=== PATIENT | female | born 1995 | race Caucasian/White ===

== ENCOUNTER 2017-03-09 14:05 | Inpatient (IN) | payer OTHER ==
[2017-03-09] MEDS ORDERED: IBUPROFEN 600 MG TAB PO STA (16:12)
[2017-03-09] MEDS ORDERED: SODIUM CHLORIDE 0.9% 2,000 ML IV STA (16:12)
[2017-03-09] MEDS ORDERED: ONDANSETRON 4 MG/2 ML VIAL IVP STA (16:13)
--- NOTE | 2017-03-09 16:38 | ED ---
General Adult HPI - General Chief complaint: Back Pain/Injury Stated complaint: back pain Time Seen by Provider: 03/09/17 16:05 Source: patient, RN notes reviewed Mode of arrival: ambulatory Limitations: no limitations - History of Present Illness Initial comments: 21-year-old female presents to the emergency Department chief complaint of right flank pain. Patient states she is not a drug user. Patient states that she developed this right flank pain over the last few days she noticed a fever. Patient states she has had nausea. Patient denies any burning or stinging with urination. Patient denies any abdominal. Patient states that she was concerned due to the fever so she thought that she should be evaluated. Patient states that she is not currently having any other symptoms at this time. Patient denies any risk for . Patient denies any recent shortness of breath, chest pain, abdominal pain, numbness or tingling, dysuria or hematuria, constipation or diarrhea, headaches or visual changes, or any other current symptoms. - Related Data Home Medications Medication Instructions Recorded Confirmed Acetaminophen [Tylenol] 1,000 mg PO Q4-6H PRN 03/09/17 03/09/17 Allergies Allergy/AdvReac Type Severity Reaction Status Date / Time No Known Allergies Allergy Verified 03/09/17 16:50 Review of Systems ROS Statement: Those systems with pertinent positive or pertinent negative responses have been documented in the HPI. ROS Other: All systems not noted in ROS Statement are negative. Past Medical History Past Medical History: No Reported History History of Any Multi-Drug Resistant Organisms: MRSA Date of last positivie culture/infection: 2015 MDRO Source:: various wounds Past Surgical History: No Surgical Hx Reported Past Psychological History: No Psychological Hx Reported Smoking Status: Current every day smoker Past Alcohol Use History: None Reported Past Drug Use History: IV Drug Use General Exam - General Exam Comments Initial Comments: General: The patient is awake and alert, in no distress, and does not appear acutely ill. Eye: Pupils are equal, round and reactive to light, extra-ocular movements are intact; there is normal conjunctiva bilaterally. No signs of icterus. Ears, nose, mouth and throat: There are moist mucous membranes and no oral lesions. Neck: The neck is supple, there is no tenderness. Cardiovascular: There is a regular rate and rhythm. No murmur, rub or gallop is appreciated. Respiratory: Lungs are clear to auscultation, respirations are non-labored, breath sounds are equal. No wheezes, stridor, rales, or rhonchi. Gastrointestinal: Soft, non-distended, non-tender abdomen without masses or organomegaly noted. There is no rebound or guarding present. Right sided CVA tenderness. Bowel sounds are unremarkable. Back: There is no tenderness to palpation in the midline. There is no obvious deformity. No rashes noted. Musculoskeletal: Normal ROM, no tenderness, There is no pedal edema. There is no calf tenderness or swelling. Sensation intact. Pulses equal bilaterally 2+. Neurological: CN II-XII intact, There are no obvious motor or sensory deficits. Coordination appears grossly intact. Speech is normal. Skin: Skin is warm and dry and no rashes or lesions are noted. Psychiatric: Cooperative, appropriate mood & affect, normal judgment. Limitations: no limitations Course Vital Signs 03/09/17 03/09/17 14:26 15:47 Temperature 101.2 F H 99.5 F Pulse Rate 108 H 105 H Respiratory 20 17 Rate Blood Pressure 113/68 126/58 O2 Sat by Pulse 99 98 Oximetry Medical Decision Making - Medical Decision Making 21-year-old female presents emergency Department with a chief complaint of fever and right-sided back pain. At this time patient's urine lab work as well as CT is consistent with possible pyelonephritis. Lumbar does not show any evidence of infection to the lumbar spine. At this time we did discuss to admit the patient with Rocephin due to her fever and her white count her urine along with flank pain. We did discuss this with on-call Dr. Shea who does agree to the admission. All questions have been answered. Patient will be admitted at this time. - Lab Data Result diagrams: 03/09/17 16:45 03/09/17 16:45 Lab Results 03/09/17 03/09/17 03/09/17 Range/Units 16:45 16:45 16:45 WBC 15.0 H (3.8-10.6) k/uL RBC 4.69 (3.80-5.40) m/uL Hgb 13.6 (11.4-16.0) gm/dL Hct 43.8 (34.0-46.0) % MCV 93.5 (80.0-100.0) fL MCH 29.1 (25.0-35.0) pg MCHC 31.1 (31.0-37.0) g/dL RDW 13.5 (11.5-15.5) % Plt Count 289 (150-450) k/uL Neutrophils % 81 % Lymphocytes % 12 % Monocytes % 6 % Eosinophils % 1 % Basophils % 0 % Neutrophils # 12.1 H (1.3-7.7) k/uL Lymphocytes # 1.8 (1.0-4.8) k/uL Monocytes # 0.8 (0-1.0) k/uL Eosinophils # 0.1 (0-0.7) k/uL Basophils # 0.0 (0-0.2) k/uL PT (9.0-12.0) sec INR (<1.1) APTT (22.0-30.0) sec Sodium 140 (137-145) mmol/L Potassium 4.4 (3.5-5.1) mmol/L Chloride 102 (98-107) mmol/L Carbon Dioxide 26 (22-30) mmol/L Anion Gap 12 mmol/L BUN 9 (7-17) mg/dL Creatinine 0.71 (0.52-1.04) mg/dL Est GFR (MDRD) Af Amer >60 (>60 ml/min/1.73 sqM) Est GFR (MDRD) Non-Af >60 (>60 ml/min/1.73 sqM) Glucose 96 (74-99) mg/dL Plasma Lactic Acid Tyler 1.7 (0.7-2.0) mmol/L Calcium 9.4 (8.4-10.2) mg/dL Total Bilirubin 0.7 (0.2-1.3) mg/dL AST 27 (14-36) U/L ALT 36 (9-52) U/L Alkaline Phosphatase 73 (38-126) U/L Total Protein 7.5 (6.3-8.2) g/dL Albumin 4.3 (3.5-5.0) g/dL Amylase <30 L (30-110) U/L Lipase 46 (23-300) U/L Urine Color Urine Appearance (Clear) Urine pH (5.0-8.0) Ur Specific Vernon (1.001-1.035) Urine Protein (Negative) Urine Glucose (UA) (Negative) Urine Ketones (Negative) Urine Blood (Negative) Urine Nitrite (Negative) Urine Bilirubin (Negative) Urine Urobilinogen (<2.0) mg/dL Ur Leukocyte Esterase (Negative) Urine RBC (0-5) /hpf Urine WBC (0-5) /hpf Urine WBC Clumps (None) /hpf Ur Squamous Epith Cells (0-4) /hpf Urine Bacteria (None) /hpf Urine Mucus (None) /hpf 03/09/17 03/09/17 Range/Units 16:45 16:45 WBC (3.8-10.6) k/uL RBC (3.80-5.40) m/uL Hgb (11.4-16.0) gm/dL Hct (34.0-46.0) % MCV (80.0-100.0) fL MCH (25.0-35.0) pg MCHC (31.0-37.0) g/dL RDW (11.5-15.5) % Plt Count (150-450) k/uL Neutrophils % % Lymphocytes % % Monocytes % % Eosinophils % % Basophils % % Neutrophils # (1.3-7.7) k/uL Lymphocytes # (1.0-4.8) k/uL Monocytes # (0-1.0) k/uL Eosinophils # (0-0.7) k/uL Basophils # (0-0.2) k/uL PT 10.3 (9.0-12.0) sec INR 1.0 (<1.1) APTT 24.8 (22.0-30.0) sec Sodium (137-145) mmol/L Potassium (3.5-5.1) mmol/L Chloride (98-107) mmol/L Carbon Dioxide (22-30) mmol/L Anion Gap mmol/L BUN (7-17) mg/dL Creatinine (0.52-1.04) mg/dL Est GFR (MDRD) Af Amer (>60 ml/min/1.73 sqM) Est GFR (MDRD) Non-Af (>60 ml/min/1.73 sqM) Glucose (74-99) mg/dL Plasma Lactic Acid Tyler (0.7-2.0) mmol/L Calcium (8.4-10.2) mg/dL Total Bilirubin (0.2-1.3) mg/dL AST (14-36) U/L ALT (9-52) U/L Alkaline Phosphatase (38-126) U/L Total Protein (6.3-8.2) g/dL Albumin (3.5-5.0) g/dL Amylase (30-110) U/L Lipase (23-300) U/L Urine Color Yellow Urine Appearance Cloudy H (Clear) Urine pH 6.0 (5.0-8.0) Ur Specific Vernon 1.016 (1.001-1.035) Urine Protein 1+ H (Negative) Urine Glucose (UA) Negative (Negative) Urine Ketones Negative (Negative) Urine Blood Small H (Negative) Urine Nitrite Positive H (Negative) Urine Bilirubin Negative (Negative) Urine Urobilinogen <2.0 (<2.0) mg/dL Ur Leukocyte Esterase Large H (Negative) Urine RBC 15 H (0-5) /hpf Urine WBC >182 H (0-5) /hpf Urine WBC Clumps Few H (None) /hpf Ur Squamous Epith Cells 5 H (0-4) /hpf Urine Bacteria Few H (None) /hpf Urine Mucus Rare H (None) /hpf - Radiology Data Radiology results: report reviewed, image reviewed Disposition Clinical Impression: Acute pyelonephritis Disposition: [facility] Condition: Stable Referrals: None,Stated [Primary Care Provider] - 1-2 days Time of Disposition: 18:38 Decision Date: 03/09/17 Decision Time: 18:38
[2017-03-09 17:06] LABS: Basophils % (A) 0 %; CH 30.4; CHCM 32.7; Eosinophils # (A) 0.1 k/uL (0-0.7); Eosinophils % (A) 1 %; HCT 43.8 % (34.0-46.0); HDW 2.42; HGB 13.6 gm/dL (11.4-16.0); Luc % (Auto) 1; Lymphocytes # (A) 1.8 k/uL (1.0-4.8); Lymphocytes % (A) 12 %; MCH 29.1 pg (25.0-35.0); MCHC 31.1 g/dL (31.0-37.0); MCV 93.5 fL (80.0-100.0); Mean Platelet Volume 8.5; Monocytes # (A) 0.8 k/uL (0-1.0); Monocytes % (A) 6 %; Neutrophils # (A) 12.1 k/uL (1.3-7.7); Neutrophils % (A) 81 %; RBC 4.69 m/uL (3.80-5.40); RDW 13.5 % (11.5-15.5); WBC (Perox) 15.03
[2017-03-09 17:14] LABS: ALT 36 U/L (9-52); AST 27 U/L (14-36); Alkaline Phosphatase 73 U/L (38-126); Amylase <30 U/L (30-110); Anion Gap 12 mmol/L; Blood Urea Nitrogen 9 mg/dL (7-17); Calcium 9.4 mg/dL (8.4-10.2); Carbon Dioxide 26 mmol/L (22-30); Chloride 102 mmol/L (98-107); Glucose 96 mg/dL (74-99); Non-African American GFR(MDRD) >60 (>60 ml/min/1.73 sqM); Potassium 4.4 mmol/L (3.5-5.1); Sodium 140 mmol/L (137-145); Total Bilirubin 0.7 mg/dL (0.2-1.3); Total Protein 7.5 g/dL (6.3-8.2)
[2017-03-09 17:19] LABS: Partial Thromboplastin Time 24.8 sec (22.0-30.0); Prothrombin Time 10.3 sec (9.0-12.0)
[2017-03-09 17:24] LABS: Appearance,Urine Cloudy (Clear); Bacteria,Urine Few /hpf; Bilirubin,Urine Negative (Negative); Glucose,Urine (UA) Negative (Negative); Ketones,Urine Negative (Negative); Leukocyte Esterase,Urine Large (Negative); Mucus,Urine Rare /hpf; Nitrite,Urine Positive (Negative); Particle Count 7927; Protein,Urine 1+ (Negative); RBC,Urine 15 /hpf (0-5); Specific Gravity,Urine 1.016 (1.001-1.035); Squamous Epithelial Cell,Urine 5 /hpf (0-4); UA Billing (MACRO vs. MICRO) MICRO; Urobilinogen,Urine <2.0 mg/dL (<2.0); WBC,Urine >182 /hpf (0-5)
--- NOTE | 2017-03-09 18:35 | CT ---
EXAMINATION TYPE: CT lumbar spine wo con DATE OF EXAM: 03/09/2017 6:14 PM COMPARISON: NONE HISTORY: Right sided pain with leg numbness. No known injury CT DLP: 559.5 mGycm Automated exposure control for dose reduction was used. Unenhanced CT of the lumbar spine was performed. Bone and soft tissue window settings are submitted as well as coronal and sagittal reconstructions. The lumbar vertebra have normal spacing and alignment. There is no paraspinal mass. Posterior element s appear intact. The facet joints appear normal. The sacroiliac joints appear normal. There is partial visualization of the right renal collecting system which appears to show some edema around the right renal pelvis and mild hydronephrosis. Right ureter is slightly ectatic.. IMPRESSION: Normal lumbar spine. No fracture. No evidence of spinal stenosis. There is evidence of right-sided hydronephrosis and perinephric edema that is suggestive of distal ri ght ureteral obstruction. I would also consider pyelonephritis. Clinical correlation is recommended.
[2017-03-09] MEDS ORDERED: NALOXONE 0.4 MG/ML 1 ML VIAL IV PRN (18:38)
[2017-03-09] MEDS ORDERED: ONDANSETRON 4 MG/2 ML VIAL IVP PRN (18:38)
[2017-03-09] MEDS: SODIUM CHLORIDE 0.9% 1,000 ML IV SCH (19:13)
[2017-03-09] MEDS: KETOROLAC 30 MG/ML 1 ML VIAL IVP PRN (20:52)
[2017-03-09] MEDS: LORazepam 2 MG/ML SYRINGE IV PRN (21:21)
[2017-03-09] MEDS: ACETAMINOPHEN TAB 325 MG TAB PO PRN (23:09)
[2017-03-10] MEDS: IBUPROFEN 400 MG TAB PO PRN (00:13)
[2017-03-10] MEDS: SODIUM CHLORIDE 0.9% 1,000 ML IV SCH ×3 (05:11→22:00)
[2017-03-10] MEDS: KETOROLAC 30 MG/ML 1 ML VIAL IVP PRN ×2 (08:56→17:33)
[2017-03-10] MEDS: LORazepam 2 MG/ML SYRINGE IV PRN ×4 (08:57→22:01)
[2017-03-10] MEDS ORDERED: cefTRIAXone 1,000 MG VIAL (IM USE) IM SCH (09:00)
[2017-03-10 09:27] LABS: Basophils % (A) 0 %; CH 29.5; CHCM 32.8; Eosinophils # (A) 0.1 k/uL (0-0.7); Eosinophils % (A) 0 %; HCT 37.5 % (34.0-46.0); HDW 2.35; HGB 12.3 gm/dL (11.4-16.0); Luc # (Auto) 0.19; Luc % (Auto) 1; Lymphocytes # (A) 1.5 k/uL (1.0-4.8); Lymphocytes % (A) 8 %; MCH 29.7 pg (25.0-35.0); MCHC 32.8 g/dL (31.0-37.0); MCV 90.5 fL (80.0-100.0); Mean Platelet Volume 7.9; Monocytes # (A) 0.9 k/uL (0-1.0); Monocytes % (A) 5 %; Neutrophils # (A) 15.7 k/uL (1.3-7.7); Neutrophils % (A) 86 %; RBC 4.14 m/uL (3.80-5.40); RDW 12.8 % (11.5-15.5); WBC 18.3 k/uL (3.8-10.6); WBC (Perox) 18.95
[2017-03-10 09:47] LABS: ALT 35 U/L (9-52); AST 20 U/L (14-36); Alkaline Phosphatase 67 U/L (38-126); Anion Gap 9 mmol/L; Blood Urea Nitrogen 8 mg/dL (7-17); Calcium 8.6 mg/dL (8.4-10.2); Carbon Dioxide 22 mmol/L (22-30); Chloride 111 mmol/L (98-107); Glucose 90 mg/dL (74-99); Non-African American GFR(MDRD) >60 (>60 ml/min/1.73 sqM); Potassium 3.9 mmol/L (3.5-5.1); Sodium 142 mmol/L (137-145); Total Bilirubin 0.5 mg/dL (0.2-1.3); Total Protein 5.6 g/dL (6.3-8.2)
--- NOTE | 2017-03-10 11:18 | XR ---
EXAMINATION TYPE: XR KUB DATE OF EXAM: 03/10/2017 11:08 AM CLINICAL HISTORY: History of kidney stones with right-sided flank pain. TECHNIQUE: 2 upright KUB images of the abdomen are obtained. COMPARISON: CT lumbar spine from yesterday. FINDINGS: Scattered gas is seen in non-distended small bowel loops. Gas and fecal material is seen in non-distended colon. There is no visceromegaly, pneumoperitoneum, or abnormal calcification apprecia jesus. The lung bases are clear and the osseous structures are intact. IMPRESSION: Overall nonobstructive bowel gas pattern. No definite nephrolithiasis. Review of CT shows asymmetric right-sided perinephric fat stranding and mild hydronephrosis but I do not see definitive distal righ t ureter calculus to account for findings.
[2017-03-10 12:09] LABS: Hepatitis B Surface Ag Index 0.06
[2017-03-10 12:15] LABS: Hepatitis B Core IgM Index 0.05
[2017-03-10 12:26] LABS: Hepatitis C Virus IgG Ab Reactive (Negative)
--- NOTE | 2017-03-10 12:52 | P.HPIM ---
History of Present Illness H&P Date: 03/10/17 Chief Complaint: Right flank pain 21-year-old female presented on the day of admission to the emergency room to be evaluated for right flank pain. Patient stated over the last several days pain had become more noticeable she developed fever chills with a sensation of nausea with a burning sensation when urinating. Patient stated that she did become concerned presented with the above clinical findings. The temp in the emergency room was 101.2 heart rate was in the 100s. White count elevated 15. Patient did have a computed tomography scan of the lumbar spine without contrast for the right side pain it did show evidence of a right sided hydronephrosis and perinephric edema suggestive of distal right urethral obstruction consider pyelonephritis. Patient did have a KUB done this morning the report no overall nonobstructive bowel gas pattern no definitive stone. Patient temp this morning 98.3. Patient does report using IV heroin used last night before coming into the emergency room. Patient states she uses IV heroin daily whenever she can get it has been using IV heroin for at least 3-4 months is not interested in stopping patient does have a track lauren on the right antecubital. Patient states she uses her wrist as to the site when she injects heroin Review of Systems Essentially unremarkable except as mentioned in the present illness Past Medical History Past Medical History: No Reported History Additional Past Medical History / Comment(s): cellulitis on lower back History of Any Multi-Drug Resistant Organisms: MRSA Date of last positivie culture/infection: 2015 MDRO Source:: various wounds Past Surgical History: No Surgical Hx Reported Past Anesthesia/Blood Transfusion Reactions: No Reported Reaction Past Psychological History: No Psychological Hx Reported Smoking Status: Current every day smoker Past Alcohol Use History: None Reported Past Drug Use History: IV Drug Use - Past Family History Brother(s) Additional Family Medical History / Comment(s): MRSA, heart problems as a child Medications and Allergies Home Medications Medication Instructions Recorded Confirmed Type Acetaminophen [Tylenol] 1,000 mg PO Q4-6H PRN 03/09/17 03/09/17 History Allergies Allergy/AdvReac Type Severity Reaction Status Date / Time No Known Allergies Allergy Verified 03/09/17 16:50 Physical Exam Vitals: Vital Signs Temp Pulse Pulse Resp BP BP Pulse Ox 03/10/17 10:26 99 20 03/10/17 07:00 97.6 F 90 20 107/63 99 03/10/17 06:06 97.9 F 03/10/17 00:02 101.2 F H 03/09/17 23:00 102.3 F H 126 H 18 104/44 97 03/09/17 18:55 100.3 F H 94 17 101/59 03/09/17 15:47 99.5 F 105 H 17 126/58 98 03/09/17 14:26 101.2 F H 108 H 20 113/68 99 Intake and Output 03/09/17 03/10/17 03/10/17 22:59 06:59 14:59 Intake Total 480 Balance 480 Intake: Oral 480 Other: Voiding Method Toilet # Voids 0 1 Physical exam 21-year-old female awake alert appears in no acute distress Lungs essentially clear adequate air movement no wheezing rales or rhonchi on room air sats greater than 95% no cough noted Heart S1-S2 audible regular no murmur noted denying chest pain Abdomen soft nontender not able to palpate any organ tristian continues to report having right flank pain with right sided CVA tenderness bowel tones present states no difficulty in urinating no frequent stooling Extremities no edema noted tract melissa noted right antecubital Results CBC & Chem 7: 03/10/17 08:36 03/10/17 08:36 Labs: Abnormal Lab Results - Last 24 Hours (Table) 03/09/17 03/09/17 03/09/17 Range/Units 16:45 16:45 16:45 WBC 15.0 H (3.8-10.6) k/uL Neutrophils # 12.1 H (1.3-7.7) k/uL Chloride (98-107) mmol/L Total Protein (6.3-8.2) g/dL Albumin (3.5-5.0) g/dL Amylase <30 L (30-110) U/L Urine Appearance Cloudy H (Clear) Urine Protein 1+ H (Negative) Urine Blood Small H (Negative) Urine Nitrite Positive H (Negative) Ur Leukocyte Esterase Large H (Negative) Urine RBC 15 H (0-5) /hpf Urine WBC >182 H (0-5) /hpf Urine WBC Clumps Few H (None) /hpf Ur Squamous Epith Cells 5 H (0-4) /hpf Urine Bacteria Few H (None) /hpf Urine Mucus Rare H (None) /hpf 03/10/17 03/10/17 Range/Units 08:36 08:36 WBC 18.3 H (3.8-10.6) k/uL Neutrophils # 15.7 H (1.3-7.7) k/uL Chloride 111 H (98-107) mmol/L Total Protein 5.6 L (6.3-8.2) g/dL Albumin 3.1 L (3.5-5.0) g/dL Amylase (30-110) U/L Urine Appearance (Clear) Urine Protein (Negative) Urine Blood (Negative) Urine Nitrite (Negative) Ur Leukocyte Esterase (Negative) Urine RBC (0-5) /hpf Urine WBC (0-5) /hpf Urine WBC Clumps (None) /hpf Ur Squamous Epith Cells (0-4) /hpf Urine Bacteria (None) /hpf Urine Mucus (None) /hpf Microbiology - Last 24 Hours (Table) 03/09/17 16:45 Urine Culture - Preliminary Urine,Voided Thrombosis Risk Factor Assmnt - Choose All That Apply Any of the Below Risk Factors Present?: Yes Each Factor Represents 1 point: Obesity (BMI >25) Other Risk Factors: No Other congenital or acquired thrombophilia - If yes, enter type in comment: No Thrombosis Risk Factor Assessment Total Risk Factor Score: 1 Thrombosis Risk Factor Assessment Level: Low Risk Assessment and Plan Plan: Impression Present on admission febrile leukocytosis tachycardic meet sepsis criteria suspect due to UTI with pyelonephritis History of IV drug uses heroin daily last use prior to coming into the emergency room Present on admission right flank pain with the CT lumbar spine showing evidence of right-sided hydronephrosis with edema suggestive of distal right urethral obstruction consider pyelonephritis Plan Psych eval potential withdrawal from heroin recommendations for treatment withdrawal Urology consult pending IV fluid for hydration Dr. Vila infectious disease recreations antibiotic DVT and GI prophylaxis Further recommendations pending The above impression and plan of care have been discussed and directed by signing physician. Kalpana Orozco nurse practitioner acting as scribe for signing physician.
--- NOTE | 2017-03-10 13:56 | P.GSCN ---
History of Present Illness Consult date: 03/10/17 Reason for Consult: Pyelonephritis Requesting physician: Hugo Shea History of present illness: The patient is a 21-year-old white female who reports a one-week history of dysuria. She developed right flank pain approximately 3 days ago. Yesterday she began to experience fever. She presented to the emergency room. Because she reported neurologic changes of the right lower extremity, a computed tomography scan of the lumbar spine was obtained. This showed evidence of right hydronephrosis with perinephric stranding. I'm consulted for this reason. The patient denies any prior history of urolithiasis. She has been treated for one UTI in the past. Review of Systems - Constitutional Reports fever - Respiratory Denies dyspnea - Gastrointestinal Denies nausea, Denies vomiting - Genitourinary Genitourinary: Reports dysuria, Denies hematuria Past Medical History Past Medical History: No Reported History Additional Past Medical History / Comment(s): cellulitis on lower back History of Any Multi-Drug Resistant Organisms: MRSA Year Discovered:: 2016 MDRO Source:: various wounds Past Surgical History: No Surgical Hx Reported Past Anesthesia/Blood Transfusion Reactions: No Reported Reaction Past Psychological History: No Psychological Hx Reported Smoking Status: Current every day smoker Past Alcohol Use History: None Reported Past Drug Use History: IV Drug Use - Past Family History Brother(s) Additional Family Medical History / Comment(s): MRSA, heart problems as a child Medications and Allergies Home Medications Medication Instructions Recorded Confirmed Type Acetaminophen [Tylenol] 1,000 mg PO Q4-6H PRN 03/09/17 03/09/17 History Allergies Allergy/AdvReac Type Severity Reaction Status Date / Time No Known Allergies Allergy Verified 03/09/17 16:50 Surgical - Exam Vital Signs Temp Pulse Resp BP Pulse Ox 101.2 F H 108 H 20 113/68 99 03/09/17 14:26 03/09/17 14:26 03/09/17 14:26 03/09/17 14:26 03/09/17 14:26 - General well developed, well nourished, no distress - Abdomen Abdomen: soft, non tender, no guarding, no rigid, no rebound - Neurologic no disoriented, no combative - Psychiatric oriented to time, oriented to person, oriented to place, speech is normal, memory intact Results - Labs 03/10/17 08:36 03/10/17 08:36 Abnormal Lab Results - Last 24 Hours (Table) 03/09/17 03/09/17 03/09/17 Range/Units 16:45 16:45 16:45 WBC 15.0 H (3.8-10.6) k/uL Neutrophils # 12.1 H (1.3-7.7) k/uL Chloride (98-107) mmol/L Total Protein (6.3-8.2) g/dL Albumin (3.5-5.0) g/dL Amylase <30 L (30-110) U/L Urine Appearance Cloudy H (Clear) Urine Protein 1+ H (Negative) Urine Blood Small H (Negative) Urine Nitrite Positive H (Negative) Ur Leukocyte Esterase Large H (Negative) Urine RBC 15 H (0-5) /hpf Urine WBC >182 H (0-5) /hpf Urine WBC Clumps Few H (None) /hpf Ur Squamous Epith Cells 5 H (0-4) /hpf Urine Bacteria Few H (None) /hpf Urine Mucus Rare H (None) /hpf 03/10/17 03/10/17 Range/Units 08:36 08:36 WBC 18.3 H (3.8-10.6) k/uL Neutrophils # 15.7 H (1.3-7.7) k/uL Chloride 111 H (98-107) mmol/L Total Protein 5.6 L (6.3-8.2) g/dL Albumin 3.1 L (3.5-5.0) g/dL Amylase (30-110) U/L Urine Appearance (Clear) Urine Protein (Negative) Urine Blood (Negative) Urine Nitrite (Negative) Ur Leukocyte Esterase (Negative) Urine RBC (0-5) /hpf Urine WBC (0-5) /hpf Urine WBC Clumps (None) /hpf Ur Squamous Epith Cells (0-4) /hpf Urine Bacteria (None) /hpf Urine Mucus (None) /hpf Microbiology - Last 24 Hours (Table) 03/09/17 16:45 Urine Culture - Preliminary Urine,Voided Diabetes panel 03/09/17 03/10/17 Range/Units 16:45 08:36 Sodium 140 142 (137-145) mmol/L Potassium 4.4 3.9 (3.5-5.1) mmol/L Chloride 102 111 H (98-107) mmol/L Carbon Dioxide 26 22 (22-30) mmol/L BUN 9 8 (7-17) mg/dL Creatinine 0.71 0.70 (0.52-1.04) mg/dL Glucose 96 90 (74-99) mg/dL Calcium 9.4 8.6 (8.4-10.2) mg/dL AST 27 20 (14-36) U/L ALT 36 35 (9-52) U/L Alkaline Phosphatase 73 67 (38-126) U/L Total Protein 7.5 5.6 L (6.3-8.2) g/dL Albumin 4.3 3.1 L (3.5-5.0) g/dL Calcium panel 03/09/17 03/10/17 Range/Units 16:45 08:36 Calcium 9.4 8.6 (8.4-10.2) mg/dL Albumin 4.3 3.1 L (3.5-5.0) g/dL Pituitary panel 03/09/17 03/10/17 Range/Units 16:45 08:36 Sodium 140 142 (137-145) mmol/L Potassium 4.4 3.9 (3.5-5.1) mmol/L Chloride 102 111 H (98-107) mmol/L Carbon Dioxide 26 22 (22-30) mmol/L BUN 9 8 (7-17) mg/dL Creatinine 0.71 0.70 (0.52-1.04) mg/dL Glucose 96 90 (74-99) mg/dL Calcium 9.4 8.6 (8.4-10.2) mg/dL Adrenal panel 03/09/17 03/10/17 Range/Units 16:45 08:36 Sodium 140 142 (137-145) mmol/L Potassium 4.4 3.9 (3.5-5.1) mmol/L Chloride 102 111 H (98-107) mmol/L Carbon Dioxide 26 22 (22-30) mmol/L BUN 9 8 (7-17) mg/dL Creatinine 0.71 0.70 (0.52-1.04) mg/dL Glucose 96 90 (74-99) mg/dL Calcium 9.4 8.6 (8.4-10.2) mg/dL Total Bilirubin 0.7 0.5 (0.2-1.3) mg/dL AST 27 20 (14-36) U/L ALT 36 35 (9-52) U/L Alkaline Phosphatase 73 67 (38-126) U/L Total Protein 7.5 5.6 L (6.3-8.2) g/dL Albumin 4.3 3.1 L (3.5-5.0) g/dL Assessment and Plan (1) Acute pyelonephritis Status: Acute Plan: I had a lengthy discussion with the patient and her friends/family. Clinically , she appears to have acute right pyelonephritis. The computed tomography scan of the lumbar spine suggest the presence of right hydronephrosis, thus raising the possibility of a right distal ureteral calculus. If she does have a ureteral calculus, placement of a right ureteral stent may be beneficial. In view of this, a computed tomography scan of the abdomen and pelvis will be obtained for further evaluation. In the meantime, she will continue to receive Rocephin pending the urine culture results.
[2017-03-10] MEDS: NICOTINE 21MG/24HR PATCH TRANSDERM SCH ×2 (14:27→22:01)
--- NOTE | 2017-03-10 14:38 | CT ---
EXAMINATION TYPE: CT abdomen pelvis wo con DATE OF EXAM: 03/10/2017 COMPARISON: KUB obtained earlier on the same day. HISTORY: Right-sided flank pain and urinary tract infection. CT DLP: 1006 mGycm Automated exposure control for dose reduction was used. TECHNIQUE: Helical acquisition of images was performed from the lung bases through the pelvis. FINDINGS: LUNG BASES: No significant abnormality is appreciated. The liver appears unremarkable on this noncont rast examination. The gallbladder is contracted. Evaluation of the visceral organs is suboptimal without the use of contrast. The stomach is filled with ingested material. LIVER/GB: No significant abnormality is appreciated. PANCREAS: No significant abnormality is seen. SPLEEN: Splenomegaly is noted measuring length of 15 cm. ADRENALS: No significant abnormality is seen. KIDNEYS: The left kidney is unremarkable. The right kidney demonstrates mild edema with perinephric f at stranding. There is blunting of the calyces as well as the renal pelvis is minimally prominent. Th ere is no definite hydronephrosis. No obstructing focus is identified in the course of the right uret er. FREE AIR: No free air is visualized RETROPERITONEAL ADENOPATHY: None visualized REPRODUCTIVE ORGANS: There is a hypodense 3.7 x 2.4 cm right ovarian cyst noted. There is no infiltra tion of the fat adjacent to this cyst is suggested is any infectious process. Physiologic changes are also noted in the left ovary. The urinary bladder is unremarkable. The uterus is anteverted. URINARY BLADDER: No significant abnormality is seen. PELVIC ADENOPATHY: A few benign appearing lymph nodes are noted in the inguinal areas bilaterally. OSSEOUS STRUCTURES: No significant abnormality is seen. BOWEL: No significant abnormality is seen. OTHER: None IMPRESSION: SIMILAR TO THE CT SCAN OF THE LUMBAR SPINE THERE IS PERIRENAL INFILTRATION OF THE FAT WITH POSSIBLE M ILD HYDRONEPHROSIS. THERE IS NO MARY ANNE HYDRONEPHROSIS. FINDINGS ARE THOUGHT TO REPRESENT ACUTE PYELONE PHRITIS, HOWEVER THIS IS SUBOPTIMAL GIVEN NONE CONTRAST EXAMINATION. CLINICAL CORRELATION IS REQUIRED . SPLENOMEGALY OVARIAN CYSTS ARE NOTED BILATERALLY WHICH ARE FELT TO BE PHYSIOLOGIC.
[2017-03-10] MEDS: ACETAMINOPHEN TAB 325 MG TAB PO PRN (17:31)
--- NOTE | 2017-03-10 20:41 | CONS ---
DATE OF CONSULTATION: 03/10/2017 REASON FOR CONSULTATION: Right-sided pyelonephritis. HISTORY OF PRESENT ILLNESS: The patient is a 21-year-old female who presented to [facility] for evaluation of pain to the right flank area which has been going on for a day or 2. The patient's symptoms preceded by urinary symptoms burning and frequency and small amount of urination each time. The patient's urinary symptoms improved, but now having more pain in the flank area described to be a sharp pain and on further description has some radiation to the leg. The patient did have a fever of 101.2 on admission with 102.3 today. The patient also noticed to have an elevated white count of 15 up to 18.3 today. Urine has been positive with large leukocyte esterase, more than 182 WBCs. The ( ) serology is reported to be negative. The patient did have an abdomen and pelvis CT that has been suspicious for right kidney demonstrating mild edema with perinephric fat stranding and blunting of the calyces as well as pelvis is minimally prominent. The patient has been admitted to the hospital, treated with Rocephin. I was asked to see the patient for further recommendation regarding antibiotic therapy. REVIEW OF SYSTEMS: CONSTITUTIONAL: Positive for weakness, low-grade fever. EYES: No complaint. ENT: No complaint. RESPIRATORY: No complaint. CARDIOVASCULAR: No complaint. GENITOURINARY: As per HPI. GASTROINTESTINAL: no complaint. MUSCULOSKELETAL: No complaint. INTEGUMENTARY: No rash. ENDOCRINE: No complaint. NEUROLOGIC: No complaint. PAST MEDICAL HISTORY: Significant for a cellulitis of the lower back with MRSA and wound infection. PAST SURGICAL HISTORY: No major surgery. SOCIAL HISTORY: The patient currently is a heavy smoker ( ). FAMILY HISTORY: Mother had history of MRSA and heart problems as a child. ALLERGIES: No known drug allergies. Medications include the patient is currently on: 1. Zofran. 2. Nicotine patch. 3. Narcan. 4. Atrovent. 5. Toradol. 6. Motrin. 7. Rocephin. 8. Tylenol. On examination, blood pressure is 103/60 with a pulse of 108, temperature 100.9, T-max of 102. She is 99% on room air. General description is a young female lying in bed in no distress. No tachypnea or accessory muscles of respiration use. HEENT: No pallor or scleral icterus. Oral mucous membranes dry. NECK: Trachea central. No thyromegaly. LUNGS: Unlabored breathing. Clear to auscultation anteriorly. HEART: S1, S2. Regular rate and rhythm. ABDOMEN: Soft. No guarding or rigidity. Did have right flank tenderness. EXTREMITIES: No edema of feet. ( ) no mass palpable. NEUROLOGICAL: The patient is awake, alert, oriented x3. Mood and affect normal. LABS: Hemoglobin 12.8, white count 18.3 with a BUN of 8, creatinine 0.70. Liver enzymes have been normal. Urine has been positive. Blood culture is currently pending. DIAGNOSTIC IMPRESSION AND PLAN: Patient with sepsis in a patient who did have fever to 102 degrees Fahrenheit and elevated white count of 15,000 on admission, up to 18,000. Source is likely right-sided pyelonephritis with abnormal CT reporting the same finding, likely from a gram-negative pathogen. PLAN: 1. Will increase the Rocephin to 2 g IV piggyback daily. 2. IV fluids. 3. We will follow the ( ) and cultures to further adjust the medication if needed. Thank you for this consultation. Will follow this patient along with you.
[2017-03-10] MEDS: FAMOTIDINE 20 MG TAB PO SCH (22:00)
[2017-03-11] MEDS: KETOROLAC 30 MG/ML 1 ML VIAL IVP PRN ×2 (01:06→16:31)
[2017-03-11] MEDS: ACETAMINOPHEN TAB 325 MG TAB PO PRN (01:32)
[2017-03-11] MEDS: SODIUM CHLORIDE 0.9% 1,000 ML IV SCH ×2 (06:30→17:53)
[2017-03-11] MEDS: IBUPROFEN 400 MG TAB PO PRN (10:05)
[2017-03-11] MEDS: LORazepam 2 MG/ML SYRINGE IV PRN (10:05)
[2017-03-11] MEDS: NICOTINE 21MG/24HR PATCH TRANSDERM SCH (10:06)
[2017-03-11 10:13] LABS: Basophils % (A) 0 %; CH 29.6; Eosinophils # (A) 0.1 k/uL (0-0.7); Eosinophils % (A) 1 %; HCT 37.6 % (34.0-46.0); HDW 2.36; HGB 12.6 gm/dL (11.4-16.0); Luc # (Auto) 0.31; Luc % (Auto) 2; Lymphocytes # (A) 1.8 k/uL (1.0-4.8); Lymphocytes % (A) 11 %; MCH 30.3 pg (25.0-35.0); MCHC 33.5 g/dL (31.0-37.0); MCV 90.2 fL (80.0-100.0); Mean Platelet Volume 8.5; Monocytes % (A) 6 %; Neutrophils # (A) 13.2 k/uL (1.3-7.7); Neutrophils % (A) 81 %; RBC 4.16 m/uL (3.80-5.40); RDW 12.7 % (11.5-15.5); WBC 16.3 k/uL (3.8-10.6); WBC (Perox) 16.54
[2017-03-11 10:18] LABS: ALT 29 U/L (9-52); AST 17 U/L (14-36); Alkaline Phosphatase 82 U/L (38-126); Anion Gap 10 mmol/L; Blood Urea Nitrogen 4 mg/dL (7-17); Calcium 8.5 mg/dL (8.4-10.2); Carbon Dioxide 22 mmol/L (22-30); Chloride 108 mmol/L (98-107); Glucose 89 mg/dL (74-99); Non-African American GFR(MDRD) >60 (>60 ml/min/1.73 sqM); Potassium 3.9 mmol/L (3.5-5.1); Sodium 140 mmol/L (137-145); Total Bilirubin 0.4 mg/dL (0.2-1.3); Total Protein 6.2 g/dL (6.3-8.2)
--- NOTE | 2017-03-11 12:01 | P.PN ---
Progress Note - Text The patient is currently afebrile; her T-max for the past 24 hours is 100.4F. She states that she is feeling better today. She is very uncooperative and is considering signing herself out AGAINST MEDICAL ADVICE. I strongly discouraged this. I explained to her that the computed tomography scan shows right renal edema with perinephric stranding. Minimal fullness of the collecting system is noted, and there is no evidence of urolithiasis. Therefore, she will not require stent placement. A preliminary urine culture has shown gram-negative bacilli. Blood cultures are negative. It would be my recommendation that she continue to receive ceftriaxone, pending the final urine culture result. Please notify me if I can be of any further assistance.
--- NOTE | 2017-03-11 16:03 | CONS ---
DATE OF CONSULTATION: 03/11/2017 IDENTIFYING DATA: This patient is a 21-year-old single female who was admitted to the hospital with a diagnosis of acute pyelonephritis. She presented with acute right flank pain. She has been seen by Urology as well as Infectious Disease and the primary service. We are asked to consult regarding opiate withdrawal symptoms. The patient is found in her room. She is seated upright in bed. Her mother is at bedside. The patient reports that her mood is frustrated, as she is still in the hospital and she would like to be discharged. She feels that her medical symptoms should have resolved by now. It appears that she is on IV antibiotics. She states that she has a history of bipolar disorder, but does not comply with any outpatient treatment. She is on no psychotropic medication. She does endorse a history of depressive episodes as well as manic episodes. She appears to have these symptoms since the age of 11 per her mother. The patient also is known to inject heroin intravenously on a daily basis and has done this for quite some time. She also will abuse methamphetamine. She is endorsing no symptoms of psychosis. She is reporting no suicidal ideation, intent or plan. No homicidal ideation, intent or plan. Her mother does not indicate that the patient has made any statements threatening harm to herself or others. PAST PSYCHIATRIC HISTORY: Two prior admissions at [facility]. The patient does have a history of a suicide attempt at age 16, medication overdose. They believe that she may have been treated with Trileptal when she was 11, but has not been on any other psychotropic medication. She did follow up with a therapist after that for 1 visit. We discussed having her work with her therapist again and she states "they just supervisor rolling room me." PAST MEDICAL HISTORY: Acute pyelonephritis as noted above. ALLERGIES: No known drug allergies. CHEMICAL DEPENDENCY HISTORY: The patient is using intravenous heroin on a daily basis, has been doing this for an extended period of time. She has a history of using methamphetamine. SOCIAL HISTORY: The patient is 21 years old. She has no children. She is single. She is unemployed. She has a 9th grade education and later earned her GED. In terms of living arrangement, she states she lives with friends. 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 In 2016, she was caught with possession of methamphetamine and in 2016 was caught with possession of Suboxone. ABUSE HISTORY: Unknown. MENTAL STATUS EXAM: The patient is an overweight female. She is dressed in hospital attire. She is seated upright in bed. Eye contact is appropriate. She is initially oppositional, but does become more compliant during the conversation. She reports her mood is fine other than being frustrated that she is still here in the hospital. She is reporting no suicidal ideation, intent or plan. She is reporting no homicidal ideation, intent or plan. She reports no auditory or visual hallucinations. She endorses no specific delusions as we reviewed several types. There is no overt evidence of psychosis. She is endorsing no current racing thoughts and currently she does not appear to be hypomanic or manic. Insight and judgment grossly intact, limited regarding her substance use. She demonstrates no verbal or physical aggressiveness. She is not invested and our conversation and terminates it when she has to use the restroom. IMPRESSIONS: 1. Bipolar disorder, unspecified, opiate use disorder, methamphetamine use disorder. 2. Acute pyelonephritis. She is awaiting results from hepatitis C testing. PLAN: The patient does not require inpatient psychiatric hospitalization. She is not interested in pursuing psychotropic medication for the presumed bipolar disorder. Recommend continued symptomatic treatment of current/impending opiate withdrawal symptoms. Consider use of Catapres 0.1 mg up to 3 times daily as needed, hold for hypotension. Zofran has been ordered for nausea. Consider Bentyl for stomach cramping, Imodium for diarrhea. At length we discussed the value of working with an individual therapist as well as attending inpatient chemical dependency treatment. The patient indicates she does not plan on stopping use of substances and is therefore unmotivated for further treatment.
[2017-03-11] MEDS ORDERED: cefTRIAXone 2,000 MG in SODIUM CHLORIDE 0.9% 100 ML IVPB SCH (20:00)
[2017-03-11] MEDS: FAMOTIDINE 20 MG TAB PO SCH (20:28)
[2017-03-12] MEDS: SODIUM CHLORIDE 0.9% 1,000 ML IV SCH ×2 (01:32→10:26)
[2017-03-12 08:10] VITALS: BP 124/70; PULSE 99; RESP 16; TEMP 97.6
[2017-03-12 08:45] LABS: ALT 39 U/L (9-52); AST 22 U/L (14-36); Alkaline Phosphatase 74 U/L (38-126); Anion Gap 9 mmol/L; Blood Urea Nitrogen 2 mg/dL (7-17); Calcium 8.9 mg/dL (8.4-10.2); Carbon Dioxide 22 mmol/L (22-30); Chloride 109 mmol/L (98-107); Glucose 94 mg/dL (74-99); Non-African American GFR(MDRD) >60 (>60 ml/min/1.73 sqM); Potassium 4.2 mmol/L (3.5-5.1); Sodium 140 mmol/L (137-145); Total Bilirubin 0.4 mg/dL (0.2-1.3); Total Protein 6.4 g/dL (6.3-8.2)
--- NOTE | 2017-03-12 09:53 | PN ---
DATE OF SERVICE: 03/11/2017 REASON FOR FOLLOW-UP: Right-sided pyelonephritis. INTERVAL HISTORY: The patient is afebrile. She is feeling better. She is slightly upset that she cannot smoke. The patient denies significant chest pain or shortness of breath. Pain in the right leg has improved. No abdominal pain or any diarrhea. On examination, blood pressure 108/60 with a pulse of 98, temperature 98.1, she is 97% on room air. Young female up in the bed in no distress. RESPIRATORY SYSTEM: Unlabored breathing. Clear to auscultation anteriorly. HEART: S1, S2 regular rate and rhythm. Abdomen soft, no tenderness. No flank tenderness. LABS: Showed gram-negative, white count 16.3 with a BUN of 4, creatinine 0.62. DIAGNOSTIC IMPRESSION AND PLAN: Patient with gram negative right-sided pyelonephritis. The patient responded to Rocephin that will be continued, adjusting further based on culture report. Continue supportive care.
--- NOTE | 2017-03-12 10:55 | PN ---
SUBJECTIVE: This is a white female being treated with IV Rocephin for pyelonephritis. Still has right flank pain. She has positive hepatitis C antibody. I discussed with her. We will do further testing to confirm hepatitis C or rule it out. In the meantime, until cultures are back she will continue with Rocephin. VITAL SIGNS: Stable, afebrile. CARDIOVASCULAR: S1, S2. LUNGS: Clear. GI: Soft. HEMATOLOGIC: Negative Homans. GI: There is tenderness to palpation, right flank. ASSESSMENT: 1. Pyelonephritis. 2. Obesity. 3. Heroin addiction. 4. Hepatitis C antibody positive. Do a hepatitis C RNA. Continue with IV antibiotics. Prognosis is guarded as she states she does not want to quit taking IV heroin. Will go to rehab at this time.
[2017-03-12] MEDS: NICOTINE 21MG/24HR PATCH TRANSDERM SCH (12:47)
--- NOTE | 2017-03-12 14:33 | PN ---
DATE OF SERVICE: 03/12/2017 Reason for follow-up: Escherichia coli, ( ) pyelonephritis. INTERVAL HISTORY: The patient is afebrile, although the patient is feeling better, breathing comfortably. Denies significant chest pain, shortness of breath or cough. No abdominal pain or any diarrhea. On examination, blood pressure is 124/70 with a pulse of 99, temperature 97.6. She is 98% on room air. General description is a middle-age female lying in bed in no distress. RESPIRATORY SYSTEM: Unlabored breathing. Clear to auscultation anteriorly. HEART: S1, S2 regular rate and rhythm. Abdomen soft, no tenderness. Labs revealed BUN 2 with a creatinine 0.62. Urine finalized with E. coli blood culture ( ). DIAGNOSTIC IMPRESSION AND PLAN: Patient with ( ) pyelonephritis, the patient has shown overall clinical improvement. Plan at this time is to finish therapy with oral Cipro, script was sent to the pharmacy with outpatient follow up.
== END 2017-03-12 13:13 | disposition home or self-care (01) | DRG 872 ==
LOC: EC 14:05 → 4MS4W 17:54 → OBSVTOIN 17:54
PROVIDERS: ADMIT Family Medicine; ATTEND Family Medicine
DX: A41.9 Sepsis, unspecified organism (principal); N13.6 Pyonephrosis; F11.23 Opioid dependence with withdrawal; B96.20 Unspecified Escherichia coli [E. coli] as the cause of diseases classified elsewhere; B19.20 Unspecified viral hepatitis C without hepatic coma; F17.200 Nicotine dependence, unspecified, uncomplicated; F31.9 Bipolar disorder, unspecified; F15.90 Other stimulant use, unspecified, uncomplicated; E66.9 Obesity, unspecified; Z68.30 Body mass index [BMI] 30.0-30.9, adult; Z86.14 Personal history of Methicillin resistant Staphylococcus aureus infection; Z91.5 Personal history of self-harm; Z87.440 Personal history of urinary (tract) infections
CPT/HCPCS: 36415; 72131; 74000; 74176; 80053; 80074; 81001; 82150; 83605; 83690; 85025; 85610; 85730; 87040; 87077; 87086; 87186; 87522; 96361; 96365; 96375; 99285

== ENCOUNTER 2017-03-29 10:31 | Emergency (ER) | payer OTHER ==
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
[2017-03-29] MEDS ORDERED: ACETAMINOPHEN IV (For NPO) 1,000 MG in SALINE 1 100ML.BAG IVPB STA (11:19)
[2017-03-29 11:29] LABS: Partial Thromboplastin Time 22.7 sec (22.0-30.0)
[2017-03-29 11:31] LABS: Prothrombin Time 10.3 sec (9.0-12.0)
[2017-03-29 11:40] LABS: Creatine Kinase 53 U/L (30-135)
[2017-03-29 11:42] LABS: ALT 66 U/L (9-52); AST 47 U/L (14-36); Alcohol <10 mg/dL; Alkaline Phosphatase 78 U/L (38-126); Anion Gap 9 mmol/L; Blood Urea Nitrogen 9 mg/dL (7-17); Calcium 9.2 mg/dL (8.4-10.2); Carbon Dioxide 27 mmol/L (22-30); Chloride 104 mmol/L (98-107); Glucose 99 mg/dL (74-99); Non-African American GFR(MDRD) >60 (>60 ml/min/1.73 sqM); Sodium 140 mmol/L (137-145); Total Bilirubin 0.7 mg/dL (0.2-1.3); Total Protein 7.7 g/dL (6.3-8.2)
[2017-03-29 11:46] LABS: Basophils # (A) 0.1 k/uL (0-0.2); Basophils % (A) 1 %; CH 29.1; CHCM 33.4; Eosinophils # (A) 0.1 k/uL (0-0.7); Eosinophils % (A) 1 %; HCT 41.2 % (34.0-46.0); HDW 2.57; HGB 13.9 gm/dL (11.4-16.0); Luc % (Auto) 2; Lymphocytes # (A) 3.1 k/uL (1.0-4.8); Lymphocytes % (A) 29 %; MCH 29.6 pg (25.0-35.0); MCHC 33.9 g/dL (31.0-37.0); MCV 87.5 fL (80.0-100.0); Mean Platelet Volume 7.7; Monocytes # (A) 0.8 k/uL (0-1.0); Monocytes % (A) 7 %; Neutrophils # (A) 6.3 k/uL (1.3-7.7); Neutrophils % (A) 60 %; RBC 4.71 m/uL (3.80-5.40); WBC 10.5 k/uL (3.8-10.6)
[2017-03-29 11:47] LABS: Potassium 3.8 mmol/L (3.5-5.1)
[2017-03-29 11:51] LABS: Creatine Kinase MB <0.2 ng/mL (0.0-2.4); Troponin I <0.012 ng/mL (0.000-0.034)
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
[2017-03-29 12:29] LABS: Appearance,Urine Cloudy (Clear); Bacteria,Urine Rare /hpf; Bilirubin,Urine Negative (Negative); Glucose,Urine (UA) Negative (Negative); Ketones,Urine Negative (Negative); Leukocyte Esterase,Urine Large (Negative); Mucus,Urine Few /hpf; Nitrite,Urine Negative (Negative); Particle Count 5486; Protein,Urine 1+ (Negative); RBC,Urine 4 /hpf (0-5); Specific Gravity,Urine 1.013 (1.001-1.035); Squamous Epithelial Cell,Urine 8 /hpf (0-4); UA Billing (MACRO vs. MICRO) MICRO; Urobilinogen,Urine <2.0 mg/dL (<2.0); WBC,Urine 60 /hpf (0-5)
--- NOTE | 2017-03-29 13:02 | P.PN ---
Progress Note - Text Patient seen and evaluated. She reports brief loss of consciousness less than a minute. She reports denies abdominal pain. She complains of discomfort from her rash of the left shoulder. Complains of mild headache along the left side. AST ALT were elevated. Recommend bacitracin ointment to wounds. Will need outpatient follow-up regarding liver enzymes and repeat blood work. She denies having a PCP. Patient may follow up as an outpatient in the office.
[2017-03-29 13:39] VITALS: RESP 18
[2017-03-29 14:10] VITALS: BP 113/64; PULSE 82; TEMP 97.4
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
== END 2017-03-29 14:10 | disposition home or self-care (01) ==
LOC: EC 10:31
DX: S06.0X1A Concussion with loss of consciousness of 30 minutes or less, initial encounter (principal); S00.03XA Contusion of scalp, initial encounter; S70.211A Abrasion, right hip, initial encounter; S80.211A Abrasion, right knee, initial encounter; S90.812A Abrasion, left foot, initial encounter; S90.414A Abrasion, right lesser toe(s), initial encounter; R74.8 Abnormal levels of other serum enzymes; F41.9 Anxiety disorder, unspecified; R00.0 Tachycardia, unspecified; M54.2 Cervicalgia; R40.2412 Glasgow coma scale score 13-15, at arrival to emergency department; F17.200 Nicotine dependence, unspecified, uncomplicated; Z91.040 Latex allergy status; V00.831A Fall from motorized mobility scooter, initial encounter; Y92.410 Unspecified street and highway as the place of occurrence of the external cause; V28.0XXA Motorcycle driver injured in noncollision transport accident in nontraffic accident, initial encounter
CPT/HCPCS: 36415; 93005; 86900; 86901; 80053; 82550; 82553; 83605; 84484; 85025; 85610; 85730; 86850; 81001; 81025; 80306; 80320; 71010; 73630; 72170; 73562; 72125; 70450; 99285; 96365; 96366; J0131

== ENCOUNTER 2017-06-21 09:18 | Emergency (ER) | payer OTHER ==
[2017-06-21 09:29] VITALS: TEMP 97.7
--- NOTE | 2017-06-21 09:31 | ED ---
General Adult HPI - General Chief complaint: Overdose Stated complaint: Overdose Time Seen by Provider: 06/21/17 09:24 Source: patient, EMS, RN notes reviewed Mode of arrival: EMS Limitations: no limitations - History of Present Illness Initial comments: Patient is a pleasant 22-year-old female presenting to the emergency department following an overdose. Patient admits to overdosing on IV heroin. Patient denies any other ingestion. Patient denies self-harm or thoughts of self-harm. Patient did take some methamphetamine last night. Patient has no complaints at this time. Patient denies any injury. - Related Data Home Medications Medication Instructions Recorded Confirmed No Known Home Medications [No 03/29/17 06/21/17 Known Home Medications] Allergies Allergy/AdvReac Type Severity Reaction Status Date / Time latex Allergy Rash/Hives Verified 06/21/17 09:54 Review of Systems ROS Statement: Those systems with pertinent positive or pertinent negative responses have been documented in the HPI. ROS Other: All systems not noted in ROS Statement are negative. Constitutional: Denies: fever Eyes: Denies: eye pain ENT: Denies: ear pain Respiratory: Denies: cough Cardiovascular: Denies: chest pain Endocrine: Denies: fatigue Gastrointestinal: Reports: nausea. Denies: abdominal pain Genitourinary: Denies: dysuria Musculoskeletal: Denies: back pain Skin: Denies: rash Neurological: Denies: weakness Past Medical History Past Medical History: No Reported History Additional Past Medical History / Comment(s): cellulitis on lower back History of Any Multi-Drug Resistant Organisms: MRSA Date of last positivie culture/infection: 2015 MDRO Source:: various wounds Past Surgical History: No Surgical Hx Reported Past Anesthesia/Blood Transfusion Reactions: No Reported Reaction Past Psychological History: No Psychological Hx Reported Smoking Status: Current every day smoker Past Alcohol Use History: None Reported Past Drug Use History: IV Drug Use - Past Family History Brother(s) Additional Family Medical History / Comment(s): MRSA, heart problems as a child General Exam Limitations: no limitations General appearance: alert, in no apparent distress Head exam: Present: atraumatic Eye exam: Present: normal appearance, PERRL ENT exam: Present: normal oropharynx Neck exam: Present: normal inspection. Absent: tenderness Respiratory exam: Present: normal lung sounds bilaterally Cardiovascular Exam: Present: regular rate, normal rhythm GI/Abdominal exam: Present: soft. Absent: tenderness Extremities exam: Present: normal inspection Neurological exam: Present: alert Psychiatric exam: Present: normal affect, normal mood Skin exam: Present: normal color, other (Track melissa left forearm) Course Vital Signs 06/21/17 09:19 Temperature 97.7 F Respiratory 100 H Rate Blood Pressure 122/67 O2 Sat by Pulse 100 Oximetry EKG Findings - EKG Comments: EKG Findings:: Normal sinus rhythm 100. ME 116. QRS 86. QT 356. QTc 459. Normal axis. Normal QRS. No acute ST change. Medical Decision Making - Medical Decision Making Patient reexamined and alert and appropriate. Disposition Clinical Impression: Heroin overdose Disposition: HOME SELF-CARE Condition: Stable Instructions: Narcotic Abuse (ED) Additional Instructions: Discontinue drug use. Return for worsening symptoms or other concerns. Referrals: Jacob Carroll MD [REFERRING] - 1-2 days Sona Issa MD [STAFF PHYSICIAN] - 1-2 days Time of Disposition: 10:18
[2017-06-21 10:44] VITALS: BP 106/62; PULSE 64; RESP 17
== END 2017-06-21 10:47 | disposition home or self-care (01) ==
LOC: EC 09:18
DX: T40.1X1A Poisoning by heroin, accidental (unintentional), initial encounter (principal); F17.200 Nicotine dependence, unspecified, uncomplicated; Z91.040 Latex allergy status; Z86.14 Personal history of Methicillin resistant Staphylococcus aureus infection
CPT/HCPCS: 93005; 99284

== ENCOUNTER 2018-02-22 12:01 | Emergency (ER) | payer OTHER ==
[2018-02-22] MEDS ORDERED: ceFAZolin 1,000 MG VIAL IM STA (12:50)
--- NOTE | 2018-02-22 12:56 | ED ---
Skin/Abscess/FB HPI - General Chief complaint: Skin/Abscess/Foreign Body Stated complaint: Abcess on face Time Seen by Provider: 02/22/18 12:39 Source: patient, RN notes reviewed Mode of arrival: ambulatory Limitations: no limitations - History of Present Illness Initial comments: 22-year-old female presents to the ER with a chief complaint of left cheek swelling. Patient states started last few days. Patient reports no fevers or chills. Patient states she did squeeze had an a large amount of pus came out today. Patient states it felt better. Patient reports no fever no chills no neck pain no neck stiffness. Patient has a history of MRSA. Patient has a history of drug abuse. - Related Data Previous Rx's Medication Instructions Recorded Sulfamethox-Tmp 800-160Mg [Bactrim 2 each PO Q12HR #40 tab 02/22/18 Ds] Allergies Allergy/AdvReac Type Severity Reaction Status Date / Time latex Allergy Rash/Hives Verified 02/22/18 12:33 Review of Systems ROS Statement: Those systems with pertinent positive or pertinent negative responses have been documented in the HPI. ROS Other: All systems not noted in ROS Statement are negative. Past Medical History Past Medical History: No Reported History Additional Past Medical History / Comment(s): cellulitis on lower back History of Any Multi-Drug Resistant Organisms: MRSA Date of last positivie culture/infection: 2015 MDRO Source:: various wounds Past Surgical History: No Surgical Hx Reported Past Anesthesia/Blood Transfusion Reactions: No Reported Reaction Past Psychological History: No Psychological Hx Reported Smoking Status: Current every day smoker Past Alcohol Use History: None Reported Past Drug Use History: Heroin, IV Drug Use - Past Family History Brother(s) Additional Family Medical History / Comment(s): MRSA, heart problems as a child General Exam Limitations: no limitations General appearance: alert, in no apparent distress Head exam: Present: atraumatic, normocephalic, normal inspection Eye exam: Present: normal appearance, PERRL, EOMI. Absent: scleral icterus, conjunctival injection, periorbital swelling ENT exam: Present: normal oropharynx, mucous membranes moist. Absent: normal exam (Left cheek there is moderate swelling noted, open wound with mild tenderness to palpation patient) Neck exam: Present: normal inspection. Absent: tenderness, meningismus, lymphadenopathy Respiratory exam: Present: normal lung sounds bilaterally. Absent: respiratory distress, wheezes, rales, rhonchi, stridor Cardiovascular Exam: Present: regular rate, normal rhythm, normal heart sounds. Absent: systolic murmur, diastolic murmur, rubs, gallop, clicks Skin exam: Present: warm, dry, intact, normal color. Absent: rash Course Vital Signs 02/22/18 12:05 Temperature 98.3 F Pulse Rate 115 H Respiratory 16 Rate Blood Pressure 119/78 O2 Sat by Pulse 99 Oximetry Medical Decision Making - Medical Decision Making 22-year-old female presents for left cheek abscess. This is open and has had some drainage. Patient will be placed on Bactrim DS. We did discuss that she could be admitted for this infection though she refuses at this time. Patient states she'll return for any worsening symptoms. Disposition Clinical Impression: Abscess of left external cheek Disposition: HOME SELF-CARE Condition: Stable Instructions: Abscess (ED) Additional Instructions: Please return to the Emergency Department if symptoms worsen or any other concerns. Prescriptions: Sulfamethox-Tmp 800-160Mg [Bactrim Ds] 2 each PO Q12HR #40 tab Is patient prescribed a controlled substance at d/c from ED?: No Referrals: Jacob Carroll MD [REFERRING] - 1-2 days Time of Disposition: 12:56
[2018-02-22 13:15] VITALS: PULSE 110; TEMP 98.7
[2018-02-22 13:30] VITALS: BP 119/71; RESP 18
== END 2018-02-22 13:31 | disposition home or self-care (01) ==
LOC: EC 12:01
DX: L02.01 Cutaneous abscess of face (principal); F17.200 Nicotine dependence, unspecified, uncomplicated; Z91.040 Latex allergy status; Z86.14 Personal history of Methicillin resistant Staphylococcus aureus infection
CPT/HCPCS: 99282; 96372; J0690

== ENCOUNTER 2019-01-03 10:16 | Emergency (ER) | payer OTHER ==
--- NOTE | 2019-01-03 10:29 | ED ---
General Adult HPI - General Stated complaint: Overdose Time Seen by Provider: 01/03/19 10:18 Source: patient, EMS, RN notes reviewed, old records reviewed - History of Present Illness Initial comments: 23-year-old female presenting with suspected opiate overdose. Patient was found by EMS with pinpoint pupils, agonal respirations patient is given 2 mg of Narcan. Patient became alert with minimal spontaneous respirations patient was transported to the hospital for evaluation. Patient complains of some nausea at the time my evaluation. She states she took a medication that she thought was Tylenol. However she does admit to snorting substance which she believes was heroine. She's had previous history of illicit drug abuse. Denies suicidal attempt. - Related Data Home Medications Medication Instructions Recorded Confirmed Buprenorphine HCl/Naloxone HCl 1 tab SUBLINGUAL BID 01/03/19 01/03/19 [Zubsolv 5.7-1.4 mg Tablet Sl] Allergies Allergy/AdvReac Type Severity Reaction Status Date / Time latex Allergy Rash/Hives Verified 01/03/19 10:33 Review of Systems ROS Statement: Those systems with pertinent positive or pertinent negative responses have been documented in the HPI. ROS Other: All systems not noted in ROS Statement are negative. Past Medical History Past Medical History: No Reported History Additional Past Medical History / Comment(s): cellulitis on lower back History of Any Multi-Drug Resistant Organisms: MRSA Date of last positivie culture/infection: 2015 MDRO Source:: various wounds Past Surgical History: No Surgical Hx Reported Past Anesthesia/Blood Transfusion Reactions: No Reported Reaction Past Psychological History: No Psychological Hx Reported Smoking Status: Current every day smoker Past Alcohol Use History: None Reported Past Drug Use History: Heroin, IV Drug Use - Past Family History Brother(s) Additional Family Medical History / Comment(s): MRSA, heart problems as a child General Exam General appearance: alert, in no apparent distress Head exam: Present: atraumatic, normocephalic Eye exam: Present: normal appearance, PERRL ENT exam: Present: mucous membranes dry Neck exam: Present: normal inspection. Absent: tenderness, meningismus Respiratory exam: Present: normal lung sounds bilaterally. Absent: respiratory distress Cardiovascular Exam: Present: regular rate, normal rhythm GI/Abdominal exam: Present: soft. Absent: distended, tenderness, guarding Extremities exam: Present: normal inspection, normal capillary refill. Absent: pedal edema, calf tenderness Neurological exam: Present: alert. Absent: motor sensory deficit Skin exam: Present: warm, dry. Absent: cyanosis, diaphoretic Course Vital Signs 01/03/19 01/03/19 10:25 10:58 Temperature 97.9 F Pulse Rate 100 Respiratory 18 Rate Blood Pressure 121/86 O2 Sat by Pulse 100 100 Oximetry Medical Decision Making - Medical Decision Making 23-year-old female presenting status post opiate overdose patient has previous history of opiate addiction. She does admit to snorting what she believed was [place], however she felt that this might be heroin. She was given 2 mg of Narcan. She is observed in the emergency department for 2-1/2 hours with no requirements is supple no oxygen, no need for re-dosing of Narcan. She has no complaints. This was not a suicide attempt. She is encouraged to follow with the rehabilitation Center she has previously been in touch with. Disposition Clinical Impression: Drug overdose, Heroin overdose Disposition: HOME SELF-CARE Condition: Fair Instructions (If sedation given, give patient instructions): Opioid Use Disorder (ED), Adult Overdose (ED) Is patient prescribed a controlled substance at d/c from ED?: No Referrals: None,Stated [Primary Care Provider] - 1-2 days Mary Akins MD [STAFF PHYSICIAN] - 1-2 days Time of Disposition: 12:40
[2019-01-03] MEDS ORDERED: IBUPROFEN 600 MG TAB PO STA (10:49)
[2019-01-03] MEDS ORDERED: ONDANSETRON ODT 4 MG TAB PO STA (10:49)
[2019-01-03 12:37] VITALS: BP 124/89; PULSE 94; RESP 16; TEMP 98.6
== END 2019-01-03 12:35 | disposition home or self-care (01) ==
LOC: EC 10:16
DX: T40.1X1A Poisoning by heroin, accidental (unintentional), initial encounter (principal); F17.200 Nicotine dependence, unspecified, uncomplicated; Z91.040 Latex allergy status; Z79.899 Other long term (current) drug therapy; Z86.14 Personal history of Methicillin resistant Staphylococcus aureus infection
CPT/HCPCS: 99285

== ENCOUNTER 2019-08-09 23:16 | Inpatient (IN) | payer OTHER ==
[2019-08-09] MEDS ORDERED: VANCOMYCIN IV PER PHARMACY 1 EACH MISC MISCELLANE PRN (23:47)
[2019-08-09] MEDS ORDERED: PIPERACILLIN-TAZOBACTAM 3.375 GM in SODIUM CHLORIDE 0.9% 100 ML IVPB STA (23:47)
[2019-08-09] MEDS ORDERED: ACETAMINOPHEN TAB 325 MG TAB PO STA (23:50)
[2019-08-09] MEDS ORDERED: VANCOMYCIN 1,500 MG in SODIUM CHLORIDE 0.9% 250 ML IVPB STA (23:54)
--- NOTE | 2019-08-10 00:09 | ED ---
General Adult HPI - General Source: patient, RN notes reviewed, old records reviewed Mode of arrival: ambulatory Limitations: no limitations <Henok Garduno - Last Filed: 08/10/19 01:32> <Carson Gomez - Last Filed: 08/11/19 07:44> - General Chief complaint: Skin/Abscess/Foreign Body Stated complaint: R Arm Abscess Time Seen by Provider: 08/09/19 23:19 - History of Present Illness Initial comments: 24-year-old female patient is significant for IV drug use presents to the chief complaint of abscess to right antecubital fossa region. Patient reports that she did inject IV drugs today. Patient reports that has been ongoing for approximately 2 days. Denies known fevers at home, denies nausea vomiting, alberto es any chance of being . Systemic: Pt denies fatigue, fever/chills, rash. Pt denies weakness, night sweats, weight loss. Neuro: Pt denies headache, visual disturbances, syncope or pre-syncope. HEENT: Pt denies ocular discharge or irritation, otalgia, rhinorrhea, pharyngitis or notable lymphadenopathy. Cardiopulmonary: Pt denies chest pain, SOB, heart palpitations, dyspnea on exertion. Abdominal/GI: Pt denies abdominal pain, n/v/d. : Pt denies dysuria, burning w/ urination, frequency/urgency. Denies new onset urinary or bowel incontinence. MSK: Pt denies myalgia, loss of strength or function in extremities. Neuro: Pt denies new onset weakness, paresthesias. (Henok Garduno) - Related Data Home Medications Medication Instructions Recorded Confirmed Ibuprofen [Motrin Ib] 800 mg PO Q6H PRN 08/10/19 08/10/19 Allergies Allergy/AdvReac Type Severity Reaction Status Date / Time latex Allergy Rash/Hives Verified 08/10/19 08:13 Review of Systems ROS Other: All systems not noted in ROS Statement are negative. <Henok Garduno - Last Filed: 08/10/19 01:32> ROS Other: All systems not noted in ROS Statement are negative. <Carson Gomez - Last Filed: 08/11/19 07:44> ROS Statement: Those systems with pertinent positive or pertinent negative responses have been documented in the HPI. Past Medical History Past Medical History: No Reported History Additional Past Medical History / Comment(s): cellulitis on lower back History of Any Multi-Drug Resistant Organisms: MRSA Date of last positivie culture/infection: June 2019 MDRO Source:: various wounds Past Surgical History: No Surgical Hx Reported Past Anesthesia/Blood Transfusion Reactions: No Reported Reaction Past Psychological History: No Psychological Hx Reported Smoking Status: Current every day smoker Past Alcohol Use History: None Reported Past Drug Use History: Heroin, IV Drug Use - Past Family History Brother(s) Additional Family Medical History / Comment(s): MRSA, heart problems as a child <Henok Garduno - Last Filed: 08/10/19 01:32> General Exam Limitations: no limitations <Henok Garduno - Last Filed: 08/10/19 01:32> - General Exam Comments Initial Comments: Constitutional: NAD, AOX3, Pt has pleasant affect. HEENT: NC/AT, trachea midline, neck supple, no lymphadenopathy. Posterior pharynx non erythematous, without exudates. External ears appear normal, without discharge. Mucous membranes moist. Eyes PERRLA, EOM intact. There is no scleral icterus. No pallor noted. Cardiopulmonary: RRR, no murmurs, rubs or gallops, no JVD noted. Lungs CTAB in anterior and posterior sahu. No peripheral edema. Abdominal exam: Abdomen soft and non-distended. Abdomen non-tender to palpation in all 4 quadrants. Bowel sounds active in LLQ. No hepatosplenomegaly. No ecchymosis Neuro: CN II-XII grossly intact. No nuchal rigidity. No raccon eyes, no guerra sign, no hemotympanum. No cervical spinal tenderness. MSK: Approximately 4 x 4 inch area of erythematous, moderately fluctuant right antecubital fossa region. Mild mild streaking noted. No posterior calf tenderness bilaterally, homans sign negative bilaterally. Posterior tibialis and radial pulse +2 bilaterally. Sensation intact in upper and lower extremities. Full active ROM in upper and lower extremities, 5/5 stregnth. (Henok Garduno) Course Vital Signs 08/09/19 08/10/19 08/10/19 23:20 01:17 01:34 Temperature 100.4 F H 98.1 F Pulse Rate 126 H 112 H Respiratory 16 16 16 Rate Blood Pressure 99/67 92/50 O2 Sat by Pulse 98 100 Oximetry Medical Decision Making - Lab Data Result diagrams: 08/10/19 00:20 08/10/19 00:20 <Henok Garduno - Last Filed: 08/10/19 01:32> - Lab Data Result diagrams: 08/10/19 00:20 08/10/19 00:20 <Carson Gomez - Last Filed: 08/11/19 07:44> - Medical Decision Making 24-year-old female patient is significant for IV drug use presents to the chief complaint of abscess to right antecubital fossa region. Patient reports that she did inject IV drugs today. Patient reports that has been ongoing for approximately 2 days. Denies known fevers at home, denies nausea vomiting, denies any chance of being . Patient vital signs initially displayed, tachycardia, fever 100.4, mild hypotension at 99/67. Patient history of fluid bolus, antipyretic. Physical exam displayed a large abscess right antecubital fossa region. Appears deep. Function. Erythematous. Patellar Investigations reveal leukocytosis of 19.4. Days. Urinary tract infection. HCG negative. Bryson capellan issued on Zosyn, vancomycin. Patient will be admitted to Dr. Coe. (Henok Garduno) I saw this patient in conjunction with the physician engineer assistant. I performed in dependent history and physical exam. Agree with case management. (Carson Gomez) - Lab Data Lab Results 08/10/19 08/10/19 08/10/19 Range/Units 00:20 00:20 00:20 WBC 19.4 H (3.8-10.6) k/uL RBC 4.18 (3.80-5.40) m/uL Hgb 12.4 (11.4-16.0) gm/dL Hct 36.4 (34.0-46.0) % MCV 87.2 (80.0-100.0) fL MCH 29.8 (25.0-35.0) pg MCHC 34.1 (31.0-37.0) g/dL RDW 12.1 (11.5-15.5) % Plt Count 353 (150-450) k/uL Neutrophils % 79 % Lymphocytes % 12 % Monocytes % 6 % Eosinophils % 1 % Basophils % 1 % Neutrophils # 15.3 H (1.3-7.7) k/uL Lymphocytes # 2.3 (1.0-4.8) k/uL Monocytes # 1.1 H (0-1.0) k/uL Eosinophils # 0.2 (0-0.7) k/uL Basophils # 0.3 H (0-0.2) k/uL Sodium 134 L (137-145) mmol/L Potassium 4.4 (3.5-5.1) mmol/L Chloride 102 (98-107) mmol/L Carbon Dioxide 24 (22-30) mmol/L Anion Gap 8 mmol/L BUN 10 (7-17) mg/dL Creatinine 0.60 (0.52-1.04) mg/dL Est GFR (CKD-EPI)AfAm >90 (>60 ml/min/1.73 sqM) Est GFR (CKD-EPI)NonAf >90 (>60 ml/min/1.73 sqM) Glucose 113 H (74-99) mg/dL Plasma Lactic Acid Tyler 1.3 (0.7-2.0) mmol/L Calcium 9.3 (8.4-10.2) mg/dL Total Bilirubin 0.4 (0.2-1.3) mg/dL AST 52 H (14-36) U/L ALT 138 H (9-52) U/L Alkaline Phosphatase 76 (38-126) U/L Total Protein 7.3 (6.3-8.2) g/dL Albumin 3.9 (3.5-5.0) g/dL Urine Color Urine Appearance (Clear) Urine pH (5.0-8.0) Ur Specific [place] (1.001-1.035) Urine Protein (Negative) Urine Glucose (UA) (Negative) Urine Ketones (Negative) Urine Blood (Negative) Urine Nitrite (Negative) Urine Bilirubin (Negative) Urine Urobilinogen (<2.0) mg/dL Ur Leukocyte Esterase (Negative) Urine RBC (0-5) /hpf Urine WBC (0-5) /hpf Ur Squamous Epith Cells (0-4) /hpf Urine Bacteria (None) /hpf Urine Mucus (None) /hpf Urine HCG, Qual (Not Detectd) 08/10/19 08/10/19 Range/Units 00:20 00:20 WBC (3.8-10.6) k/uL RBC (3.80-5.40) m/uL Hgb (11.4-16.0) gm/dL Hct (34.0-46.0) % MCV (80.0-100.0) fL MCH (25.0-35.0) pg MCHC (31.0-37.0) g/dL RDW (11.5-15.5) % Plt Count (150-450) k/uL Neutrophils % % Lymphocytes % % Monocytes % % Eosinophils % % Basophils % % Neutrophils # (1.3-7.7) k/uL Lymphocytes # (1.0-4.8) k/uL Monocytes # (0-1.0) k/uL Eosinophils # (0-0.7) k/uL Basophils # (0-0.2) k/uL Sodium (137-145) mmol/L Potassium (3.5-5.1) mmol/L Chloride (98-107) mmol/L Carbon Dioxide (22-30) mmol/L Anion Gap mmol/L BUN (7-17) mg/dL Creatinine (0.52-1.04) mg/dL Est GFR (CKD-EPI)AfAm (>60 ml/min/1.73 sqM) Est GFR (CKD-EPI)NonAf (>60 ml/min/1.73 sqM) Glucose (74-99) mg/dL Plasma Lactic Acid Tyler (0.7-2.0) mmol/L Calcium (8.4-10.2) mg/dL Total Bilirubin (0.2-1.3) mg/dL AST (14-36) U/L ALT (9-52) U/L Alkaline Phosphatase (38-126) U/L Total Protein (6.3-8.2) g/dL Albumin (3.5-5.0) g/dL Urine Color Yellow Urine Appearance Cloudy H (Clear) Urine pH 7.0 (5.0-8.0) Ur Specific [place] 1.020 (1.001-1.035) Urine Protein Trace H (Negative) Urine Glucose (UA) Negative (Negative) Urine Ketones Negative (Negative) Urine Blood Negative (Negative) Urine Nitrite Positive H (Negative) Urine Bilirubin Negative (Negative) Urine Urobilinogen 2.0 (<2.0) mg/dL Ur Leukocyte Esterase Large H (Negative) Urine RBC 1 (0-5) /hpf Urine WBC 14 H (0-5) /hpf Ur Squamous Epith Cells 20 H (0-4) /hpf Urine Bacteria Many H (None) /hpf Urine Mucus Few H (None) /hpf Urine HCG, Qual Not Detected (Not Detectd) Disposition Is patient prescribed a controlled substance at d/c from ED?: No <Henok Garduno - Last Filed: 08/10/19 01:32> <Carson Gomez - Last Filed: 08/11/19 07:44> Clinical Impression: Abscess Disposition: ADMITTED IP TO THIS HOSP Condition: Serious
[2019-08-10] MEDS ORDERED: SODIUM CHLORIDE 0.9% 1,000 ML IV STA (00:18)
[2019-08-10] MEDS ORDERED: SODIUM CHLORIDE 0.9% 600 ML IV STA (00:19)
[2019-08-10 00:33] LABS: Basophils # (A) 0.3 k/uL (0-0.2); Basophils % (A) 1 %; Eosinophils # (A) 0.2 k/uL (0-0.7); Eosinophils % (A) 1 %; HCT 36.4 % (34.0-46.0); HGB 12.4 gm/dL (11.4-16.0); Lymphocytes # (A) 2.3 k/uL (1.0-4.8); Lymphocytes % (A) 12 %; MCH 29.8 pg (25.0-35.0); MCHC 34.1 g/dL (31.0-37.0); MCV 87.2 fL (80.0-100.0); Mean Platelet Volume 6.2; Monocytes # (A) 1.1 k/uL (0-1.0); Monocytes % (A) 6 %; Neutrophils # (A) 15.3 k/uL (1.3-7.7); Neutrophils % (A) 79 %; Platelet Count 353 k/uL (150-450); RBC 4.18 m/uL (3.80-5.40); RDW 12.1 % (11.5-15.5); WBC 19.4 k/uL (3.8-10.6)
[2019-08-10 00:36] LABS: Appearance,Urine Cloudy (Clear); Bacteria,Urine Many /hpf; Bilirubin,Urine Negative (Negative); Blood,Urine Negative (Negative); Color,Urine Yellow; Glucose,Urine (UA) Negative (Negative); Ketones,Urine Negative (Negative); Leukocyte Esterase,Urine Large (Negative); Mucus,Urine Few /hpf; Nitrite,Urine Positive (Negative); Protein,Urine Trace (Negative); RBC,Urine 1 /hpf (0-5); Squamous Epithelial Cell,Urine 20 /hpf (0-4); WBC,Urine 14 /hpf (0-5)
[2019-08-10 00:43] LABS: ALT 138 U/L (9-52); AST 52 U/L (14-36); African American GFR (CKD) >90 (>60 ml/min/1.73 sqM); Albumin 3.9 g/dL (3.5-5.0); Alkaline Phosphatase 76 U/L (38-126); Anion Gap 8 mmol/L; Blood Urea Nitrogen 10 mg/dL (7-17); Calcium 9.3 mg/dL (8.4-10.2); Carbon Dioxide 24 mmol/L (22-30); Chloride 102 mmol/L (98-107); Glucose 113 mg/dL (74-99); Non-African American GFR(CKD) >90 (>60 ml/min/1.73 sqM); Potassium 4.4 mmol/L (3.5-5.1); Sodium 134 mmol/L (137-145); Total Bilirubin 0.4 mg/dL (0.2-1.3); Total Protein 7.3 g/dL (6.3-8.2)
[2019-08-10] MEDS ORDERED: NALOXONE 0.4 MG/ML 1 ML VIAL IV PRN (01:10)
[2019-08-10] MEDS: SODIUM CHLORIDE 0.9% 1,000 ML IV SCH ×2 (01:42→14:05)
[2019-08-10] MEDS: METHADONE 10 MG TAB PO SCH ×5 (02:38→22:56)
[2019-08-10] MEDS ORDERED: PIPERACILLIN-TAZOBACTAM 3.375 GM in SODIUM CHLORIDE 0.9% 100 ML IVPB SCH (08:00)
[2019-08-10] MEDS: VANCOMYCIN 1,500 MG in SODIUM CHLORIDE 0.9% 250 ML IVPB SCH ×2 (08:45→16:51)
[2019-08-10] MEDS: HYDROmorphone 1 MG/ML 1 ML SYRINGE IVP PRN (09:45)
[2019-08-10] MEDS ORDERED: LOPERAMIDE 2 MG CAP PO PRN (10:21)
[2019-08-10] MEDS ORDERED: ONDANSETRON 4 MG/2 ML VIAL IVP PRN (10:21)
--- NOTE | 2019-08-10 10:36 | P.CONS ---
History of Present Illness - Reason for Consult Consult date: 08/10/19 Medical management Requesting physician: Fede Coe - Chief Complaint Abscess - History of Present Illness [age] female with PMH of hepatitis C presents the ED for 3 days of right upper extremity swelling with redness and pain. Patient states that the pain is excruciating, rated 9 out of 10 in severity. Patient endorses a 4 year history of IV drug use. Patient states that she does one bag of heroin daily. She is recently on the Suboxone program. Her last use of heroin was 2 days ago. She denies any headache, lower milagros edema, nausea or vomiting, fever or chills, cough, chest pain, shortness of breath, palpitations, changes in urination or bowel habits. No changes in appetite or weight. No dizziness, numbness/weakness/tingling of the extremities. In the ED, patient was tachycardic with heart rate greater than 100. Her blood pressure was as low as 92/50 which responded to IVF. CBC showed leukocytosis of 19.4. CMP showed AST 52, ALT 138. Urinalysis showed positive nitrite. Patient is admitted for abscess, surgery is primary with plans for incision and drainage. Review of Systems Pertinent positives and negatives as discussed in HPI, a complete review of systems was performed and all other systems are negative. Past Medical History Past Medical History: No Reported History Additional Past Medical History / Comment(s): cellulitis on lower back History of Any Multi-Drug Resistant Organisms: MRSA Year Discovered:: June 2019 MDRO Source:: various wounds Past Surgical History: No Surgical Hx Reported Past Anesthesia/Blood Transfusion Reactions: No Reported Reaction Past Psychological History: No Psychological Hx Reported Smoking Status: Current every day smoker Past Alcohol Use History: None Reported Past Drug Use History: Heroin, IV Drug Use - Past Family History Brother(s) Additional Family Medical History / Comment(s): MRSA, heart problems as a child Medications and Allergies Home Medications Medication Instructions Recorded Confirmed Type Ibuprofen [Motrin Ib] 800 mg PO Q6H PRN 08/10/19 08/10/19 History Allergies Allergy/AdvReac Type Severity Reaction Status Date / Time latex Allergy Rash/Hives Verified 08/10/19 08:13 Physical Exam Vitals: Vital Signs Temp Pulse Pulse Resp BP BP Pulse Ox 08/10/19 05:31 98.1 F 111 H 16 97/61 98 08/10/19 02:04 97.9 F 102 H 16 102/57 100 08/10/19 01:34 16 08/10/19 01:17 98.1 F 112 H 16 92/50 100 08/09/19 23:20 100.4 F H 126 H 16 99/67 98 Intake and Output 08/09/19 08/10/19 08/10/19 22:59 06:59 14:59 Intake Total 550 Balance 550 Intake: Intake, IV Titration 550 Amount Sodium Chloride 0.9% 1, 300 000 ml @ 100 mls/hr IV . Q10H [facility] Rx#:[id number] Vancomycin 1,500 mg In 250 Sodium Chloride 0.9% 250 ml @ 125 mls/hr IVPB Q8H [facility] Rx#:[id number] Other: Voiding Method Toilet # Voids 2 Weight 68.039 kg General: [non toxic], [no distress], [appears at stated age] Derm: [warm], [dry] Head: [atraumatic], [normocephalic], [symmetric] Eyes: [EOMI], [no lid lag], [anicteric sclera] Mouth: [no lip lesion], [mucus membranes moist] Cardiovascular: [S1S2 reg], [tachycardic], [positive posterior tibial pulse bilateral], Lungs: [CTA bilateral], [no rhonchi, no rales] , [no accessory muscle use] Abdominal: [soft], [ nontender to palpation], [no guarding], [no appreciable organomegaly] Ext: [no gross muscle atrophy], [no edema], [no contractures], [large abscess in the antecubital fossa with erythema, tenderness to palpation, 2+ radial pulse] Neuro: [ CN II-XI grossly intact], [no focal neuro deficits] Psych: [Alert], [oriented], [appropriate affect] Results CBC & Chem 7: 08/10/19 00:20 08/10/19 00:20 Labs: Abnormal Lab Results - Last 24 Hours (Table) 08/10/19 08/10/19 08/10/19 Range/Units 00:20 00:20 00:20 WBC 19.4 H (3.8-10.6) k/uL Neutrophils # 15.3 H (1.3-7.7) k/uL Monocytes # 1.1 H (0-1.0) k/uL Basophils # 0.3 H (0-0.2) k/uL Sodium 134 L (137-145) mmol/L Glucose 113 H (74-99) mg/dL AST 52 H (14-36) U/L ALT 138 H (9-52) U/L Urine Appearance Cloudy H (Clear) Urine Protein Trace H (Negative) Urine Nitrite Positive H (Negative) Ur Leukocyte Esterase Large H (Negative) Urine WBC 14 H (0-5) /hpf Ur Squamous Epith Cells 20 H (0-4) /hpf Urine Bacteria Many H (None) /hpf Urine Mucus Few H (None) /hpf Microbiology - Last 24 Hours (Table) 08/10/19 00:20 Urine Culture - Preliminary Urine,Clean Catch Assessment and Plan Assessment: Assessment and plan Sepsis related to abscess Heroin abuse with history of IV drug use Transaminitis due to hepatitis C Abnormal UA Patient meets sepsis criteria. Heart rate greater than 100 with hypotension responding to IVF. Leukocytosis. Positive source of infection. Lactic acid negative. Plans: Continue vancomycin and Zosyn. Tylenol as needed for fever. Continue normal saline at 100 mL/h. Follow blood culture. Plans for I&D by surgery today. Pain control with Dilaudid 1 mg IV every 3 hours. Plans: Agree with methadone 10 mg by mouth every 6 hours. Symptomatic treatment with Zofran, loperamide. AST 52, ALT 138. History of IV drug use. She is hepatitis C positive. Plans: Needs outpatient follow-up with I&D. Positive nitrite. Patient is symptomatic. Plans: Continue IV antibiotics. [Needs better pain control, will give 1 mg IV Dilaudid now. Thank you for this consultation. Please call with any additional questions or concerns.] DVT prophylaxis: [SCD] Discussed with: [Patient] Anticipated discharge: [1-2 days] Anticipated discharge place: [Home] A total of [35] minutes was spent on the care of this complex patient more than 50% of the time was spent in counseling and care coordination. Patient names her boyfriend Rommel decision-maker indicates that she can't make decisions for herself. Patient would like to be full code at this time.
[2019-08-10] MEDS ORDERED: IV FLUID CONTINUATION 1,000 ML IV ONE (12:27)
--- NOTE | 2019-08-10 12:31 | P.GSHP ---
History of Present Illness H&P Date: 08/10/19 Chief Complaint: Right arm abscess 24-year-old female with history of heroin use. Last injected 3 days ago. 2 days ago began experiencing discomfort in the right antecubital fossa. Yesterday he noticed redness there which she circled with a pen at home around 6 PM. She felt slightly feverish on arrival. No nausea or vomiting. No history of similar events. History of MRSA on her buttocks. I was contacted by the emergency physicians last night from the ER stating that she had an abscess in the right antecubital fossa. Patient was scheduled for incision and drainage this morning. Patient states the redness has increased. She did have a low- grade fever. Mild tachycardia. White blood cell count 19. Describes some mild paresthesias to the right hand. Pain when bending the right elbow. Most of her pain is above the antecubital fossa. - Review of Systems Comment: The patient denies any acute changes in vision or hearing, no dysphagia or odynophagia, no chest pain or shortness of breath, no dysuria or hematuria, no headache, no runny nose, no rectal bleeding or melena, no unexplained weight loss Past Medical History Past Medical History: No Reported History Additional Past Medical History / Comment(s): cellulitis on lower back History of Any Multi-Drug Resistant Organisms: MRSA Date of last positivie culture/infection: June 2019 MDRO Source:: various wounds Past Surgical History: No Surgical Hx Reported Past Anesthesia/Blood Transfusion Reactions: No Reported Reaction Past Psychological History: No Psychological Hx Reported Smoking Status: Current every day smoker Past Alcohol Use History: None Reported Past Drug Use History: Heroin, IV Drug Use - Past Family History Brother(s) Additional Family Medical History / Comment(s): MRSA, heart problems as a child Medications and Allergies Home Medications Medication Instructions Recorded Confirmed Type Ibuprofen [Motrin Ib] 800 mg PO Q6H PRN 08/10/19 08/10/19 History Allergies Allergy/AdvReac Type Severity Reaction Status Date / Time latex Allergy Rash/Hives Verified 08/10/19 08:13 Surgical - Exam Vital Signs Temp Pulse Resp BP Pulse Ox 100.4 F H 126 H 16 99/67 98 08/09/19 23:20 08/09/19 23:20 08/09/19 23:20 08/09/19 23:20 08/09/19 23:20 Physical exam: General: Well-developed, well-nourished HEENT: Normocephalic, sclerae nonicteric Abdomen: Nontender, nondistended Extremities: Right upper arm with swelling noted, erythema occupying 50% of the circumference of the brachial region anteriorly, significant tenderness just superior to the antecubital fossa medially, no wound present, no drainage, 2+ radial pulse, slightly decreased sensation at the hand, pain with active and passive movement at the elbow Neuro: Alert and oriented Results - Labs 08/10/19 00:20 08/10/19 00:20 Abnormal Lab Results - Last 24 Hours (Table) 08/10/19 08/10/19 08/10/19 Range/Units 00:20 00:20 00:20 WBC 19.4 H (3.8-10.6) k/uL Neutrophils # 15.3 H (1.3-7.7) k/uL Monocytes # 1.1 H (0-1.0) k/uL Basophils # 0.3 H (0-0.2) k/uL Sodium 134 L (137-145) mmol/L Glucose 113 H (74-99) mg/dL AST 52 H (14-36) U/L ALT 138 H (9-52) U/L Urine Appearance Cloudy H (Clear) Urine Protein Trace H (Negative) Urine Nitrite Positive H (Negative) Ur Leukocyte Esterase Large H (Negative) Urine WBC 14 H (0-5) /hpf Ur Squamous Epith Cells 20 H (0-4) /hpf Urine Bacteria Many H (None) /hpf Urine Mucus Few H (None) /hpf Microbiology - Last 24 Hours (Table) 08/10/19 00:20 Urine Culture - Preliminary Urine,Clean Catch Diabetes panel 08/10/19 Range/Units 00:20 Sodium 134 L (137-145) mmol/L Potassium 4.4 (3.5-5.1) mmol/L Chloride 102 (98-107) mmol/L Carbon Dioxide 24 (22-30) mmol/L BUN 10 (7-17) mg/dL Creatinine 0.60 (0.52-1.04) mg/dL Glucose 113 H (74-99) mg/dL Calcium 9.3 (8.4-10.2) mg/dL AST 52 H (14-36) U/L ALT 138 H (9-52) U/L Alkaline Phosphatase 76 (38-126) U/L Total Protein 7.3 (6.3-8.2) g/dL Albumin 3.9 (3.5-5.0) g/dL Calcium panel 08/10/19 Range/Units 00:20 Calcium 9.3 (8.4-10.2) mg/dL Albumin 3.9 (3.5-5.0) g/dL Pituitary panel 08/10/19 Range/Units 00:20 Sodium 134 L (137-145) mmol/L Potassium 4.4 (3.5-5.1) mmol/L Chloride 102 (98-107) mmol/L Carbon Dioxide 24 (22-30) mmol/L BUN 10 (7-17) mg/dL Creatinine 0.60 (0.52-1.04) mg/dL Glucose 113 H (74-99) mg/dL Calcium 9.3 (8.4-10.2) mg/dL Adrenal panel 08/10/19 Range/Units 00:20 Sodium 134 L (137-145) mmol/L Potassium 4.4 (3.5-5.1) mmol/L Chloride 102 (98-107) mmol/L Carbon Dioxide 24 (22-30) mmol/L BUN 10 (7-17) mg/dL Creatinine 0.60 (0.52-1.04) mg/dL Glucose 113 H (74-99) mg/dL Calcium 9.3 (8.4-10.2) mg/dL Total Bilirubin 0.4 (0.2-1.3) mg/dL AST 52 H (14-36) U/L ALT 138 H (9-52) U/L Alkaline Phosphatase 76 (38-126) U/L Total Protein 7.3 (6.3-8.2) g/dL Albumin 3.9 (3.5-5.0) g/dL Assessment and Plan (1) Abscess of right upper extremity Narrative/Plan: 24 yo female with developing abscess right antecubital fossa. We'll proceed with incision and drainage at this time. We'll consult infectious disease postoperatively. Continue antibiotics. Risks of bleeding, infection, nerve injury, wound formation, scarring, persistent infection, possible need for additional surgery or debridement reviewed. She understands and wishes to proceed. Current Visit: Yes Status: Acute Code(s): L02.413 - CUTANEOUS ABSCESS OF RIGHT UPPER LIMB SNOMED Code(s): 50309831698721348
[2019-08-10] MEDS ORDERED: PROPOFOL 10 MG/ML 20 ML VIAL IV ONE (12:38)
[2019-08-10] MEDS ORDERED: fentaNYL (PF) 50 MCG/ML 2 ML AMP ONE (12:38)
[2019-08-10] MEDS ORDERED: LIDOCAINE 1% INJ 10MG/ML (20 ML MDV) ONE (12:38)
[2019-08-10] MEDS ORDERED: MIDAZOLAM 2 MG/2 ML VIAL ONE (12:38)
--- NOTE | 2019-08-10 13:27 | P.OP ---
Date of Procedure: 08/10/19 Procedure(s) Performed: PREOPERATIVE DIAGNOSIS: Right arm abscess POSTOPERATIVE DIAGNOSIS: Same PROCEDURE: Incision and drainage right arm abscess SURGEON: Carolin EBL: 5Cc ANESTHESIA: Gen. COMPLICATIONS: None OPERATIVE PROCEDURE: Patient placed in the operative table in the supine position. The patient's right arm was prepped and draped sterilely. The patient had swelling at and above the antecubital fossa. Most of the erythema and swelling was above the antecubital fossa. A longitudinal incision was made superior to the antecubital crease. Dissection through the subcutaneous tissues took place using blunt dissection and electrocautery. The fascia was identified. We still had not encountered pus at that point. Once we opened the fascia there was noted to be some purulent fluid beneath the fascia. This was cultured. There was not a large volume of purulence seen. The fascia itself was intact and not necrotic. Circumferentially we inspected further with palpation, and blunt dissection. No further purulence was seen. The area was irrigated with saline. The wound was then packed with 1/2 inch iodophor gauze. Sterile outer dressings applied. DISPOSITION: Stable to recovery room
[2019-08-10] MEDS: CEFEPIME 2 GM in SODIUM CHLORIDE 0.9% 100 ML IVPB SCH (20:51)
[2019-08-11] MEDS: ACETAMINOPHEN TAB 325 MG TAB PO PRN (00:48)
[2019-08-11] MEDS: VANCOMYCIN 1,500 MG in SODIUM CHLORIDE 0.9% 250 ML IVPB SCH ×2 (01:33→09:57)
[2019-08-11] MEDS: SODIUM CHLORIDE 0.9% 1,000 ML IV SCH ×3 (04:22→16:39)
--- NOTE | 2019-08-11 07:24 | P.CONS ---
History of Present Illness - Reason for Consult Consult date: 08/10/19 Right arm abscess Requesting physician: Fede Coe - Chief Complaint Pain swelling and redness at the right arm 2 days - History of Present Illness Patient is a 24-year-old female with past medical history significant for IV drug use patient injected in the right antecubital fossa about 3 days before presentation to the hospital, and a letter the patient noticed the right arm started getting swollen and red and painful pain described to be probably almost 7-8 out of 10 and no radiation with worsening swelling and redness she presented to [facility] ER yesterday, patient on presentation to the hospital and did have a low-grade fever 100.4 and tachycardia had did have a white count of 19,000 patient has been diagnosed with right arm abscess patient was started on some Zosyn and vancomycin patient has been taken to the OR this morning and the patient is status post I&D of the right arm abscess as per discussion with the surgeon fascia looked okay however there was not a lot of purulent secretion culture has been obtained the infectious disease was consulted for further recommendation regarding antibiotic therapy Review of Systems Positive point has been mentioned in the HPI rest of the systems are negative Past Medical History Past Medical History: No Reported History Additional Past Medical History / Comment(s): cellulitis on lower back History of Any Multi-Drug Resistant Organisms: MRSA Year Discovered:: June 2019 MDRO Source:: various wounds Past Surgical History: No Surgical Hx Reported Past Anesthesia/Blood Transfusion Reactions: No Reported Reaction Past Psychological History: No Psychological Hx Reported Smoking Status: Current every day smoker Past Alcohol Use History: None Reported Past Drug Use History: Heroin, IV Drug Use - Past Family History Brother(s) Additional Family Medical History / Comment(s): MRSA, heart problems as a child Medications and Allergies Home Medications Medication Instructions Recorded Confirmed Type Ibuprofen [Motrin Ib] 800 mg PO Q6H PRN 08/10/19 08/10/19 History Allergies Allergy/AdvReac Type Severity Reaction Status Date / Time latex Allergy Rash/Hives Verified 08/10/19 08:13 Physical Exam Vitals: Vital Signs Temp Pulse Pulse Resp BP BP Pulse Ox 08/10/19 13:31 118 H 16 104/62 100 08/10/19 13:23 98.8 F 122 H 16 99/58 100 08/10/19 08:30 111 H 16 08/10/19 05:31 98.1 F 111 H 16 97/61 98 08/10/19 02:04 97.9 F 102 H 16 102/57 100 08/10/19 01:34 16 08/10/19 01:17 98.1 F 112 H 16 92/50 100 08/09/19 23:20 100.4 F H 126 H 16 99/67 98 Intake and Output 08/09/19 08/10/19 08/10/19 22:59 06:59 14:59 Intake Total 550 300 Output Total 5 Balance 550 295 Intake: IV 300 Intake, IV Titration 550 Amount Sodium Chloride 0.9% 1, 300 000 ml @ 100 mls/hr IV . Q10H [facility] Rx#:[id number] Vancomycin 1,500 mg In 250 Sodium Chloride 0.9% 250 ml @ 125 mls/hr IVPB Q8H [facility] Rx#:[id number] Output: Estimated Blood Loss 5 Other: Voiding Method Toilet Toilet # Voids 2 Weight 68.039 kg GENERAL DESCRIPTION: Middle-aged female lying in bed, no distress. No tachypnea or accessory muscle of respiration use. HEENT: Shows Pallor , no scleral icterus. Oral mucous membrane is dry. No pharyngeal erythema or thrush NECK: Trachea central, no thyromegaly. LUNGS: Unlabored breathing. Clear to auscultation anteriorly. No wheeze or crackle. HEART: S1, S2, regular rate and rhythm. No loud murmur ABDOMEN: Soft, no tenderness , guarding or rigidity, no organomegaly EXTREMITIES: Right arm is currently dressed up with with no obvious drainage on the dressing NEUROLOGICAL: The patient is awake, alert, oriented x3, mood and affect normal. Results CBC & Chem 7: 08/10/19 00:20 08/10/19 00:20 Labs: Abnormal Lab Results - Last 24 Hours (Table) 08/10/19 08/10/19 08/10/19 Range/Units 00:20 00:20 00:20 WBC 19.4 H (3.8-10.6) k/uL Neutrophils # 15.3 H (1.3-7.7) k/uL Monocytes # 1.1 H (0-1.0) k/uL Basophils # 0.3 H (0-0.2) k/uL Sodium 134 L (137-145) mmol/L Glucose 113 H (74-99) mg/dL AST 52 H (14-36) U/L ALT 138 H (9-52) U/L Urine Appearance Cloudy H (Clear) Urine Protein Trace H (Negative) Urine Nitrite Positive H (Negative) Ur Leukocyte Esterase Large H (Negative) Urine WBC 14 H (0-5) /hpf Ur Squamous Epith Cells 20 H (0-4) /hpf Urine Bacteria Many H (None) /hpf Urine Mucus Few H (None) /hpf Microbiology - Last 24 Hours (Table) 08/10/19 00:20 Urine Culture - Preliminary Urine,Clean Catch Assessment and Plan Assessment: 1-patient presented to the hospital with sepsis in this patient who did have fever and elevated white count source is right arm abscess from injection drug use will need to cover for both gram-positive as well as gram-negative bacteria. The likely pathogen responsible for this abscess (1) Sepsis Current Visit: Yes Status: Acute Code(s): A41.9 - SEPSIS, UNSPECIFIED ORGANISM SNOMED Code(s): 28707964 (2) Abscess of right upper extremity Current Visit: Yes Status: Acute Code(s): L02.413 - CUTANEOUS ABSCESS OF RIGHT UPPER LIMB SNOMED Code(s): 11248303813422314 Plan: 1-Vancomycin pharmacy to dose target trough of 15 while watching his kidney function and Vanco trough closely 2-discontinue Zosyn and start the patient cefepime 2 g every 12hr We will follow on clinical condition and cultures to further adjust medication if needed Thank you for this consultation will follow this patient with you Time with Patient: Greater than 30
[2019-08-11] MEDS: CEFEPIME 2 GM in SODIUM CHLORIDE 0.9% 100 ML IVPB SCH ×2 (07:50→20:20)
[2019-08-11] MEDS ORDERED: VANCOMYCIN TROUGH DUE 1 EACH MISC MISCELLANE ONE (08:00)
[2019-08-11 08:13] LABS: Basophils % (A) 0 %; Eosinophils # (A) 0.2 k/uL (0-0.7); Eosinophils % (A) 1 %; HCT 35.1 % (34.0-46.0); HGB 11.6 gm/dL (11.4-16.0); Lymphocytes # (A) 2.5 k/uL (1.0-4.8); Lymphocytes % (A) 17 %; MCH 29.2 pg (25.0-35.0); MCHC 33.1 g/dL (31.0-37.0); MCV 88.4 fL (80.0-100.0); Mean Platelet Volume 6.7; Monocytes # (A) 1.1 k/uL (0-1.0); Monocytes % (A) 7 %; Neutrophils # (A) 11.2 k/uL (1.3-7.7); Neutrophils % (A) 73 %; Platelet Count 313 k/uL (150-450); RBC 3.97 m/uL (3.80-5.40); RDW 12.3 % (11.5-15.5); WBC 15.3 k/uL (3.8-10.6)
[2019-08-11 08:28] LABS: ALT 91 U/L (9-52); AST 35 U/L (14-36); African American GFR (CKD) >90 (>60 ml/min/1.73 sqM); Albumin 3.1 g/dL (3.5-5.0); Alkaline Phosphatase 51 U/L (38-126); Anion Gap 7 mmol/L; Blood Urea Nitrogen 2 mg/dL (7-17); Calcium 8.1 mg/dL (8.4-10.2); Carbon Dioxide 25 mmol/L (22-30); Chloride 107 mmol/L (98-107); Glucose 109 mg/dL (74-99); Non-African American GFR(CKD) >90 (>60 ml/min/1.73 sqM); Potassium 3.6 mmol/L (3.5-5.1); Sodium 139 mmol/L (137-145); Total Bilirubin 0.3 mg/dL (0.2-1.3); Total Protein 6.2 g/dL (6.3-8.2)
--- NOTE | 2019-08-11 09:38 | P.PN ---
Subjective Progress Note Date: 08/11/19 Principal diagnosis: Right upper extremity abscess Patient was seen and examined. No acute events overnight. Patient underwent I&D of right antecubital abscess yesterday. Patient reports improved pain since the I&D. Currently on Dilaudid and methadone. She denies any chest pain, shortness of breath or palpitations. No nausea or vomiting. No fever or chills. Objective - Vital Signs Vital signs: Vital Signs Temp 98.4 F 08/11/19 05:02 Pulse 93 08/11/19 05:02 Resp 16 08/11/19 05:02 BP 97/65 08/11/19 05:02 Pulse Ox 97 08/11/19 05:02 Intake & Output 08/10/19 08/11/19 08/11/19 18:59 06:59 18:59 Intake Total 790 590 Output Total 5 Balance 785 590 Intake: IV 550 Oral 240 590 Output: Estimated Blood Loss 5 Other: Voiding Method Toilet Toilet # Voids 4 2 - Exam General: [non toxic], [no distress], [appears at stated age] Derm: [warm], [dry] Head: [atraumatic], [normocephalic], [symmetric] Eyes: [EOMI], [no lid lag], [anicteric sclera] Mouth: [no lip lesion], [mucus membranes moist] Cardiovascular: [S1S2 reg], [no murmur], [positive posterior tibial pulse bilate ral], Lungs: [CTA bilateral], [no rhonchi, no rales] , [no accessory muscle use] Abdominal: [soft], [ nontender to palpation], [no guarding], [no appreciable organomegaly] Ext: [no gross muscle atrophy], [no edema], [no contractures], [right antecubital area wrapped with dressing clean dry and intact, some serosanguineous discharge, tenderness to palpation, 2+ radial pulse] Neuro: [no focal neuro deficits] Psych: [Alert], [oriented], [appropriate affect] - Labs CBC & Chem 7: 08/11/19 07:57 08/11/19 07:57 Labs: Abnormal Lab Results - Last 24 Hours (Table) 08/11/19 08/11/19 Range/Units 07:57 07:57 WBC 15.3 H (3.8-10.6) k/uL Neutrophils # 11.2 H (1.3-7.7) k/uL Monocytes # 1.1 H (0-1.0) k/uL BUN 2 L (7-17) mg/dL Glucose 109 H (74-99) mg/dL Calcium 8.1 L (8.4-10.2) mg/dL ALT 91 H (9-52) U/L Total Protein 6.2 L (6.3-8.2) g/dL Albumin 3.1 L (3.5-5.0) g/dL Microbiology - Last 24 Hours (Table) 08/10/19 13:04 Gram Stain - Preliminary Arm - Right Wound Culture - Preliminary 08/10/19 00:20 Blood Culture - Preliminary Blood No Growth after 24 hours 08/10/19 13:04 Anaerobic Culture - Preliminary Arm - Right 08/10/19 00:20 Urine Culture - Preliminary Urine,Clean Catch Assessment and Plan Assessment: Assessment and plan Sepsis related to abscess Heroin abuse with history of IV drug use Transaminitis due to hepatitis C Abnormal UA Patient meets sepsis criteria. Heart rate greater than 100 with hypotension responding to IVF. Leukocytosis. Positive source of infection. Lactic acid negative. Plans: Continue vancomycin. Zosyn discontinued and cefepime started by ID. Tylenol as needed for fever. Continue normal saline at 100 mL/h. Follo w wound and blood culture. Follow ID recommendations. Pain control with Dilaudid 1 mg IV every 3 hours. Plans: Agree with methadone 10 mg by mouth every 6 hours. Symptomatic treatment with Zofran, loperamide. AST 52-35, ALT 138-91. History of IV drug use. She is hepatitis C positive. Plans: Needs outpatient follow-up with I&D. Positive nitrite. Patient is symptomatic. Plans: Continue IV antibiotics. [Follow wound cultures. Continue IV antibiotics. Continue pain control. Withdrawal symptoms well controlled. Thank you for this consultation. Please call with any additional questions or concerns.]
[2019-08-11] MEDS: METHADONE 10 MG TAB PO SCH ×3 (09:40→16:35)
[2019-08-11] MEDS: HYDROmorphone 1 MG/ML 1 ML SYRINGE IVP PRN (11:34)
--- NOTE | 2019-08-11 11:57 | P.PN ---
Subjective Progress Note Date: 08/11/19 Principal diagnosis: Right arm abscess Patient says her pain is improved. Heart rate has normalized. White blood cell count 15.3. Cultures showing presumptive MRSA. Objective - Vital Signs Vital signs: Vital Signs Temp 98.4 F 08/11/19 05:02 Pulse 93 08/11/19 05:02 Resp 16 08/11/19 05:02 BP 97/65 08/11/19 05:02 Pulse Ox 97 08/11/19 05:02 Intake & Output 08/10/19 08/11/19 08/11/19 18:59 06:59 18:59 Intake Total 790 590 Output Total 5 Balance 785 590 Intake: IV 550 Oral 240 590 Output: Estimated Blood Loss 5 Other: Voiding Method Toilet Toilet # Voids 4 2 - Exam Right arm with slightly diminished erythema laterally and medially with some extension superiorly, overall degree of swelling improved, degree of tenderness seems slightly improved as well, wound is clean with small amount of serosanguineous drainage, still with pain upon movement active and passive at elbow joint, no paresthesias - Labs CBC & Chem 7: 08/11/19 07:57 08/11/19 07:57 Labs: Abnormal Lab Results - Last 24 Hours (Table) 08/11/19 08/11/19 Range/Units 07:57 07:57 WBC 15.3 H (3.8-10.6) k/uL Neutrophils # 11.2 H (1.3-7.7) k/uL Monocytes # 1.1 H (0-1.0) k/uL BUN 2 L (7-17) mg/dL Glucose 109 H (74-99) mg/dL Calcium 8.1 L (8.4-10.2) mg/dL ALT 91 H (9-52) U/L Total Protein 6.2 L (6.3-8.2) g/dL Albumin 3.1 L (3.5-5.0) g/dL Microbiology - Last 24 Hours (Table) 08/10/19 13:04 Gram Stain - Preliminary Arm - Right Wound Culture - Preliminary Presumptive MRSA 08/10/19 00:20 Blood Culture - Preliminary Blood No Growth after 24 hours 08/10/19 13:04 Anaerobic Culture - Preliminary Arm - Right 08/10/19 00:20 Urine Culture - Preliminary Urine,Clean Catch Assessment and Plan (1) Abscess of right upper extremity Narrative/Plan: Continue IV antibiotics per infectious disease. We'll change wound dressing with Aquacel silver after showering. Continue to monitor for progression of infection. Current Visit: Yes Status: Acute Code(s): L02.413 - CUTANEOUS ABSCESS OF RIGHT UPPER LIMB SNOMED Code(s): 88787119326547184
[2019-08-11] MEDS: KETOROLAC 30 MG/ML 1 ML VIAL IVP SCH ×2 (13:13→17:42)
[2019-08-11] MEDS: VANCOMYCIN 1,250 MG in SODIUM CHLORIDE 0.9% 250 ML IVPB SCH ×2 (16:38→22:04)
--- NOTE | 2019-08-11 17:40 | PN ---
PROGRESS NOTE DATE OF SERVICE: 08/11/2019. REASON FOR FOLLOWUP: Right arm abscess and cellulitis from IV drug use. INTERVAL HISTORY: The patient is currently afebrile. The patient has been breathing comfortably. She was having excruciating pain at the time of dressing changes and evaluation. No nausea, vomiting, abdominal pain. No diarrhea. PHYSICAL EXAMINATION: Blood pressure 105/72 with a pulse of 100, temperature 98.3. She is 96% on room air. General description is a young female lying in bed in no distress. Respiratory system: Unlabored breathing. Clear to auscultation anteriorly. Heart S1, S2. Regular rate and rhythm. Abdomen soft, no tenderness. Examination of extremities: The right arm swelling and redness slightly decreased. Minimal drainage. LAB: Vanco trough slightly low for 10.4 with a creatinine of 0.54. Wound culture with presumptive MRSA. Urine showing a gram-negative. DIAGNOSTIC IMPRESSION AND PLAN: 1. Patient with right arm abscess from IV drug use, status post drainage. The patient is currently covered with vancomycin. To continue, dose should be adjusted slightly to keep the trough around 15 because of extensive infection. Local wound care with Aquacel Silver packing. 2. Positive urinalysis and culture with gram-negative, currently covered with cefepime to continue while waiting for the ID and sensitivities. MMODL / IJN: [id number] /
[2019-08-12] MEDS: KETOROLAC 30 MG/ML 1 ML VIAL IVP SCH ×5 (00:13→22:59)
[2019-08-12] MEDS: METHADONE 10 MG TAB PO SCH ×5 (00:14→22:58)
[2019-08-12] MEDS: VANCOMYCIN 1,250 MG in SODIUM CHLORIDE 0.9% 250 ML IVPB SCH ×2 (03:45→09:58)
[2019-08-12] MEDS: CEFEPIME 2 GM in SODIUM CHLORIDE 0.9% 100 ML IVPB SCH (08:18)
[2019-08-12] MEDS: SODIUM CHLORIDE 0.9% 1,000 ML IV SCH ×2 (08:19→17:48)
[2019-08-12] MEDS: NICOTINE 21MG/24HR PATCH TRANSDERM SCH (08:24)
[2019-08-12] MEDS ORDERED: VANCOMYCIN TROUGH DUE 1 EACH MISC MISCELLANE ONE (09:00)
--- NOTE | 2019-08-12 11:48 | P.PN ---
<Shellie Tse - Last Filed: 08/12/19 11:42> Subjective Progress Note Date: 08/12/19 CHIEF COMPLAINT: Right arm abscess HISTORY OF PRESENT ILLNESS: Patient examined this morning at the bedside. She is status post incision and drainage of right arm abscess. Postop day #2. C ultures positive for presumptive MRSA. Pain states her pain is controlled at this time. She is afebrile. PHYSICAL EXAM: VITAL SIGNS: Reviewed. GENERAL: Well-developed in no acute distress. HEENT: No sclera icterus. Extraocular movements grossly intact. Moist buccal mucosa. Head is atraumatic, normocephalic. ABDOMEN: Soft. Nondistended. Nontender. NEUROLOGIC: Alert and oriented. Cranial nerves II through XII grossly intact. SKIN: Right arm dressing with serous drainage. Patient refusing to allow provider to undress wound to examine it. Area of erythema superior to the wound is unchanged per patient. ASSESSMENT: 1. Right arm abscess, status post incision and drainage, cultures positive for presumptive MRSA PLAN: -Patient currently refusing provider to examine wound. Will re-attempt this afternoon -Continue local wound care with Aquacel silver -Continue antibiotics per infectious disease Nurse practitioner note has been reviewed by physician. Signing provider agrees with the documented findings, assessment, and plan of care. Objective - Vital Signs Vital signs: Vital Signs Temp 97.7 F 08/12/19 05:00 Pulse 100 08/12/19 05:00 Resp 16 08/12/19 05:00 BP 105/58 08/12/19 05:00 Pulse Ox 97 08/12/19 05:00 Intake & Output 08/11/19 08/12/19 08/12/19 18:59 06:59 18:59 Intake Total 360 1450 Balance 360 1450 Intake: Intake, IV Titration 250 Amount Cefepime 2 gm In Sodium 100 Chloride 0.9% 100 ml @ 200 mls/hr IVPB Q12HR [facility] Rx#:[id number] Sodium Chloride 0.9% 1, 150 000 ml @ 100 mls/hr IV . Q10H [facility] Rx#:[id number] Oral 360 1200 Other: Voiding Method Toilet Toilet # Voids 5 3 - Labs CBC & Chem 7: 08/11/19 07:57 08/11/19 07:57 Labs: Microbiology - Last 24 Hours (Table) 08/10/19 00:20 Urine Culture - Final Urine,Clean Catch Escherichia coli 08/10/19 00:20 Blood Culture - Preliminary Blood No Growth after 48 hours 08/10/19 13:04 Gram Stain - Preliminary Arm - Right Wound Culture - Preliminary Presumptive MRSA <Fede Coe - Last Filed: 08/12/19 14:15> Subjective As above. Patient with decreasing pain and redness. No labs from today. No fevers. Cultures suggest MRSA infection. Earlier she was refusing wound care dressing changes. She states she will allow the nursing staff to change dressing today. Objective - Vital Signs Vital signs: Vital Signs Temp 98.2 F 08/12/19 12:21 Pulse 93 08/12/19 12:21 Resp 16 08/12/19 12:21 BP 113/75 08/12/19 12:21 Pulse Ox 100 08/12/19 12:21 Intake & Output 08/11/19 08/12/19 08/12/19 18:59 06:59 18:59 Intake Total 360 1450 850 Balance 360 1450 850 Intake: Intake, IV Titration 250 850 Amount Cefepime 2 gm In Sodium 100 100 Chloride 0.9% 100 ml @ 200 mls/hr IVPB Q12HR [facility] Rx#:[id number] Sodium Chloride 0.9% 1, 150 500 000 ml @ 100 mls/hr IV . Q10H [facility] Rx#:[id number] Vancomycin 1,500 mg In 250 Sodium Chloride 0.9% 250 ml @ 125 mls/hr IVPB Q6H [facility] Rx#:[id number] Oral 360 1200 Other: Voiding Method Toilet Toilet # Voids 5 3 4 - Labs CBC & Chem 7: 08/11/19 07:57 08/11/19 07:57 Labs: Microbiology - Last 24 Hours (Table) 08/10/19 00:20 Urine Culture - Final Urine,Clean Catch Escherichia coli 08/10/19 00:20 Blood Culture - Preliminary Blood No Growth after 48 hours 08/10/19 13:04 Gram Stain - Preliminary Arm - Right Wound Culture - Preliminary Presumptive MRSA Assessment and Plan (1) Abscess of right upper extremity Current Visit: Yes Status: Acute Code(s): L02.413 - CUTANEOUS ABSCESS OF RIGHT UPPER LIMB SNOMED Code(s): 14885451777858661
[2019-08-12] MEDS ORDERED: NICOTINE POLACRILEX 2 MG GUM BUCCAL PRN (13:28)
[2019-08-12] MEDS: HYDROmorphone 1 MG/ML 1 ML SYRINGE IVP PRN (15:55)
[2019-08-12] MEDS: VANCOMYCIN 1,500 MG in SODIUM CHLORIDE 0.9% 250 ML IVPB SCH ×2 (16:08→21:46)
--- NOTE | 2019-08-12 17:20 | P.PN ---
Subjective Progress Note Date: 08/12/19 Principal diagnosis: Right upper extremity abscess Patient was seen and examined. No acute events overnight. Patient reports improved pain since the I&D. Complains of some tightness in the right forearm. Currently on Dilaudid and methadone. She denies any chest pain, shortness of breath or palpitations. No nausea or vomiting. No fever or chills. Requesting additional nicotine supplementation. Objective - Vital Signs Vital signs: Vital Signs Temp 98.2 F 08/12/19 12:21 Pulse 93 08/12/19 12:21 Resp 16 08/12/19 12:21 BP 113/75 08/12/19 12:21 Pulse Ox 100 08/12/19 12:21 Intake & Output 08/11/19 08/12/19 08/12/19 18:59 06:59 18:59 Intake Total 360 1450 850 Balance 360 1450 850 Intake: Intake, IV Titration 250 850 Amount Cefepime 2 gm In Sodium 100 100 Chloride 0.9% 100 ml @ 200 mls/hr IVPB Q12HR [facility] Rx#:[id number] Sodium Chloride 0.9% 1, 150 500 000 ml @ 100 mls/hr IV . Q10H [facility] Rx#:[id number] Vancomycin 1,500 mg In 250 Sodium Chloride 0.9% 250 ml @ 125 mls/hr IVPB Q6H [facility] Rx#:[id number] Oral 360 1200 Other: Voiding Method Toilet Toilet # Voids 5 3 4 - Exam General: [non toxic], [no distress], [appears at stated age] Derm: [warm], [dry] Head: [atraumatic], [normocephalic], [symmetric] Eyes: [EOMI], [no lid lag], [anicteric sclera] Mouth: [no lip lesion], [mucus membranes moist] Cardiovascular: [S1S2 reg], [no murmur], [positive posterior tibial pulse bilateral], Lungs: [CTA bilateral], [no rhonchi, no rales] , [no accessory muscle use] Abdominal: [soft], [ nontender to palpation], [no guarding], [no appreciable organomegaly] Ext: [no gross muscle atrophy], [no edema], [no contractures], [right antecubital area wrapped with dressing clean dry and intact, some serosanguineo us discharge, tenderness to palpation, 2+ radial pulse] Neuro: [no focal neuro deficits] Psych: [Alert], [oriented], [appropriate affect] - Labs CBC & Chem 7: 08/11/19 07:57 08/11/19 07:57 Labs: Microbiology - Last 24 Hours (Table) 08/10/19 13:04 Anaerobic Culture - Preliminary Arm - Right 08/10/19 13:04 Gram Stain - Final Arm - Right Wound Culture - Final Methicillin resist S. aureus 08/10/19 00:20 Urine Culture - Final Urine,Clean Catch Escherichia coli 08/10/19 00:20 Blood Culture - Preliminary Blood No Growth after 48 hours Assessment and Plan Assessment: Assessment and plan Sepsis related to abscess Heroin abuse with history of IV drug use Transaminitis due to hepatitis C Abnormal UA Patient meets sepsis criteria. Heart rate greater than 100 with hypotension responding to IVF. Leukocytosis that is improving. Positive source of infection. Lactic acid negative. Wound culture positive for MRSA sensitive to vancomycin. Plans: Continue vancomycin. Zosyn discontinued and ampicillin started by ID for UTI. Tylenol as needed for fever. Continue normal saline at 100 mL/h. Follow wound and blood culture. Follow ID recommendations. Pain control with Dilaudid 1 mg IV every 3 hours. Plans: Agree with methadone 10 mg by mouth every 6 hours. Symptomatic treatment with Zofran, loperamide. AST 52-35, ALT 138-91. History of IV drug use. She is hepatitis C positive. Plans: Needs outpatient follow-up with I&D. Positive nitrite. Patient is symptomatic. Plans: Continue IV antibiotics. [Continue IV antibiotics. Continue pain control. Decision for IV antibiotics deferred to ID. Withdrawal symptoms well controlled. Thank you for this consultation. Please call with any additional questions or concerns.]
--- NOTE | 2019-08-12 17:32 | PN ---
PROGRESS NOTE DATE OF SERVICE: 08/12/2019. REASON FOR FOLLOW UP: 1. Right arm MRSA abscess. 2. E coli urinary tract infection. INTERVAL HISTORY: The patient is currently afebrile. The right arm pain and swelling has slightly improved. Denies having any chest pain. No cough. No abdominal pain. No diarrhea. PHYSICAL EXAMINATION: Blood pressure is 113/75 with a pulse of 93, temperature 98.2. She is 100% on room air. General description is a middle-aged female up in the room in no distress. Respiratory system: Unlabored breathing. Clear to auscultation anteriorly. Heart S1, S2. Regular rate and rhythm. Abdomen soft, no tenderness. Right arm still has some swelling and redness, minimal induration and drainage on the dressing. LABS: No new labs have been obtained today. Vancomycin trough was 14, therapeutic. Urine has been finalized with E coli that is sensitive pathogen. DIAGNOSTIC IMPRESSION AND PLAN: 1. Patient with right arm MRSA abscess status post surgical drainage. The patient is currently covered on vancomycin to continue for another 3 to 4 hours, local packing with Aquacel silver. Reevaluate wound tomorrow at the time of dressing changes to determine discharge antibiotics. 2. E coli urinary tract infection, sensitive pathogen, antibiotic switched to oral amoxicillin. MMODL / IJN: [id number] /
[2019-08-12] MEDS: AMOXICILLIN 500 MG CAP PO SCH (21:47)
[2019-08-13] MEDS ORDERED: KETOROLAC 30 MG/ML 1 ML VIAL ONE (05:03)
[2019-08-13] MEDS ORDERED: METHADONE 10 MG TAB ONE (05:03)
[2019-08-13] MEDS: SODIUM CHLORIDE 0.9% 1,000 ML IV SCH ×3 (05:33→23:02)
[2019-08-13] MEDS: KETOROLAC 30 MG/ML 1 ML VIAL IVP SCH (05:35)
[2019-08-13] MEDS: VANCOMYCIN 1,500 MG in SODIUM CHLORIDE 0.9% 250 ML IVPB SCH ×2 (05:35→10:39)
[2019-08-13] MEDS: METHADONE 10 MG TAB PO SCH ×4 (05:36→23:58)
[2019-08-13] MEDS: NICOTINE 21MG/24HR PATCH TRANSDERM SCH (08:43)
[2019-08-13] MEDS: AMOXICILLIN 500 MG CAP PO SCH ×3 (08:43→23:58)
--- NOTE | 2019-08-13 09:23 | P.PN ---
Subjective Progress Note Date: 08/13/19 Principal diagnosis: Right upper extremity abscess Patient was seen and examined. No acute events overnight. Patient reports improved pain since the I&D. Wound was packed yesterday. Patient reports decreased swelling in the right arm. Currently on Dilaudid and methadone. She denies any chest pain, shortness of breath or palpitations. No nausea or vomiting. No fever or chills. Objective - Vital Signs Vital signs: Vital Signs Temp 97.8 F 08/13/19 05:00 Pulse 104 H 08/13/19 05:00 Resp 16 08/13/19 05:00 BP 109/74 08/13/19 05:00 Pulse Ox 98 08/13/19 05:00 Intake & Output 08/12/19 08/13/19 08/13/19 18:59 06:59 18:59 Intake Total 850 1690 Balance 850 1690 Intake: Intake, IV Titration 850 1100 Amount Cefepime 2 gm In Sodium 100 Chloride 0.9% 100 ml @ 200 mls/hr IVPB Q12HR [facility] Rx#:[id number] Sodium Chloride 0.9% 1, 500 600 000 ml @ 100 mls/hr IV . Q10H [facility] Rx#:[id number] Vancomycin 1,250 mg In 250 Sodium Chloride 0.9% 250 ml @ 125 mls/hr IVPB Q6H [facility] Rx#:[id number] Vancomycin 1,500 mg In 250 250 Sodium Chloride 0.9% 250 ml @ 125 mls/hr IVPB Q6H [facility] Rx#:[id number] Oral 590 Other: # Voids 4 3 - Exam General: [non toxic], [no distress], [appears at stated age] Derm: [warm], [dry] Head: [atraumatic], [normocephalic], [symmetric] Eyes: [EOMI], [no lid lag], [anicteric sclera] Mouth: [no lip lesion], [mucus membranes moist] Cardiovascular: [S1S2 reg], [no murmur], [positive posterior tibial pulse bilateral], Lungs: [CTA bilateral], [no rhonchi, no rales] , [no accessory muscle use] Abdominal: [soft], [ nontender to palpation], [no guarding], [no appreciable organomegaly] Ext: [no gross muscle atrophy], [no edema], [no contractures], [right antecubital area wrapped with dressing clean dry and intact, some serosanguineous discharge, tenderness to palpation, 2+ radial pulse] Neuro: [no focal neuro deficits] Psych: [Alert], [oriented], [appropriate affect] - Labs CBC & Chem 7: 08/11/19 07:57 08/11/19 07:57 Labs: Microbiology - Last 24 Hours (Table) 08/10/19 00:20 Blood Culture - Preliminary Blood No Growth after 72 hours 08/10/19 13:04 Anaerobic Culture - Preliminary Arm - Right 08/10/19 13:04 Gram Stain - Final Arm - Right Wound Culture - Final Methicillin resist S. aureus 08/10/19 00:20 Urine Culture - Final Urine,Clean Catch Escherichia coli Assessment and Plan Assessment: Assessment and plan Sepsis related to abscess Heroin abuse with history of IV drug use Transaminitis due to hepatitis C Abnormal UA Patient meets sepsis criteria. Heart rate greater than 100 with hypotension responding to IVF. Leukocytosis that is improving. Positive source of infection. Lactic acid negative. Wound culture positive for MRSA sensitive to vancomycin. Plans: Continue vancomycin. Zosyn discontinued and ampicillin started by ID for UTI. Can probably transition vancomycin to Linezolid oral for discharge. Tylenol as needed for fever. Continue normal saline at 100 mL/h. Follow wound and blood culture. Follow ID recommendations. Pain control with Dilaudid 1 mg IV every 3 hours. Plans: Agree with methadone 10 mg by mouth every 6 hours. Symptomatic treatment with Zofran, loperamide. AST 52-35, ALT 138-91. History of IV drug use. She is hepatitis C positive. Plans: Needs outpatient follow-up with I&D. Positive nitrite. Patient is symptomatic. Plans: Continue IV antibiotics. [Sepsis resolving. Patient likely to be discharged home on oral antibiotics, will defer decision to ID. Withdrawal symptoms well controlled. Thank you for this consultation. Please call with any additional questions or concerns. Anticipate DC home in 1-2 days.]
[2019-08-13 10:26] LABS: African American GFR (CKD) >90 (>60 ml/min/1.73 sqM); Non-African American GFR(CKD) >90 (>60 ml/min/1.73 sqM)
[2019-08-13 10:28] LABS: Basophils % (A) 0 %; Eosinophils # (A) 0.2 k/uL (0-0.7); Eosinophils % (A) 3 %; HCT 34.6 % (34.0-46.0); HGB 11.5 gm/dL (11.4-16.0); Lymphocytes # (A) 1.8 k/uL (1.0-4.8); Lymphocytes % (A) 24 %; MCH 29.4 pg (25.0-35.0); MCHC 33.1 g/dL (31.0-37.0); MCV 88.7 fL (80.0-100.0); Mean Platelet Volume 6.3; Monocytes # (A) 0.6 k/uL (0-1.0); Monocytes % (A) 8 %; Neutrophils # (A) 4.8 k/uL (1.3-7.7); Neutrophils % (A) 64 %; Platelet Count 358 k/uL (150-450); RDW 12.4 % (11.5-15.5); WBC 7.6 k/uL (3.8-10.6)
[2019-08-13] MEDS: ACETAMINOPHEN TAB 325 MG TAB PO PRN ×2 (10:41→17:42)
--- NOTE | 2019-08-13 12:13 | P.PN ---
<Shellie Tse Georgie - Last Filed: 08/13/19 12:12> Subjective Progress Note Date: 08/13/19 CHIEF COMPLAINT: Right arm abscess HISTORY OF PRESENT ILLNESS: Patient examined this morning at the bedside. She is status post incision and drainage of right arm abscess. Postop day #3. C ultures positive for MRSA. Pain states her pain is controlled at this time. She is afebrile. WBC 7.6. PHYSICAL EXAM: VITAL SIGNS: Reviewed. GENERAL: Well-developed in no acute distress. HEENT: No sclera icterus. Extraocular movements grossly intact. Moist buccal mucosa. Head is atraumatic, normocephalic. ABDOMEN: Soft. Nondistended. Nontender. NEUROLOGIC: Alert and oriented. Cranial nerves II through XII grossly intact. SKIN: Dressing to right arm clean dry intact. Surrounding erythema significantly decreased today. ASSESSMENT: 1. Right arm abscess, status post incision and drainage, cultures positive for MRSA PLAN: -Continue local wound care with Aquacel silver -Continue antibiotics per infectious disease Nurse practitioner note has been reviewed by physician. Signing provider agrees with the documented findings, assessment, and plan of care. Objective - Vital Signs Vital signs: Vital Signs Temp 97.8 F 08/13/19 05:00 Pulse 104 H 08/13/19 05:00 Resp 16 08/13/19 05:00 BP 109/74 08/13/19 05:00 Pulse Ox 98 08/13/19 05:00 Intake & Output 08/12/19 08/13/19 08/13/19 18:59 06:59 18:59 Intake Total 850 1690 Balance 850 1690 Intake: Intake, IV Titration 850 1100 Amount Cefepime 2 gm In Sodium 100 Chloride 0.9% 100 ml @ 200 mls/hr IVPB Q12HR [facility] Rx#:[id number] Sodium Chloride 0.9% 1, 500 600 000 ml @ 100 mls/hr IV . Q10H [facility] Rx#:[id number] Vancomycin 1,250 mg In 250 Sodium Chloride 0.9% 250 ml @ 125 mls/hr IVPB Q6H [facility] Rx#:[id number] Vancomycin 1,500 mg In 250 250 Sodium Chloride 0.9% 250 ml @ 125 mls/hr IVPB Q6H [facility] Rx#:[id number] Oral 590 Other: # Voids 4 3 - Labs CBC & Chem 7: 11/26/19 09:41 08/13/19 09:41 Labs: Microbiology - Last 24 Hours (Table) 08/10/19 00:20 Blood Culture - Preliminary Blood No Growth after 72 hours 08/10/19 13:04 Anaerobic Culture - Preliminary Arm - Right 08/10/19 13:04 Gram Stain - Final Arm - Right Wound Culture - Final Methicillin resist S. aureus 08/10/19 00:20 Urine Culture - Final Urine,Clean Catch Escherichia coli <Fede Coe - Last Filed: 08/13/19 19:22> Subjective As above. Patient doing well. Wound improving. Mobility at elbow significantly improved. Probable discharge tomorrow. Objective - Vital Signs Vital signs: Vital Signs Temp 97.6 F 08/13/19 12:19 Pulse 81 08/13/19 12:19 Resp 18 08/13/19 12:19 BP 149/81 08/13/19 12:19 Pulse Ox 95 08/13/19 12:19 Intake & Output 08/13/19 08/13/19 08/14/19 06:59 18:59 06:59 Intake Total 1690 850 Balance 1690 850 Intake: Intake, IV Titration 1100 850 Amount Sodium Chloride 0.9% 1, 600 600 000 ml @ 100 mls/hr IV . Q10H [facility] Rx#:[id number] Vancomycin 1,250 mg In 250 Sodium Chloride 0.9% 250 ml @ 125 mls/hr IVPB Q6H [facility] Rx#:[id number] Vancomycin 1,500 mg In 250 250 Sodium Chloride 0.9% 250 ml @ 125 mls/hr IVPB Q6H [facility] Rx#:[id number] Oral 590 Other: # Voids 3 - Labs CBC & Chem 7: 08/13/19 09:41 08/13/19 09:41 Labs: Microbiology - Last 24 Hours (Table) 08/10/19 00:20 Blood Culture - Preliminary Blood No Growth after 72 hours 08/10/19 13:04 Anaerobic Culture - Preliminary Arm - Right Assessment and Plan (1) Abscess of right upper extremity Current Visit: Yes Status: Acute Code(s): L02.413 - CUTANEOUS ABSCESS OF RIGHT UPPER LIMB SNOMED Code(s): 29736800727101611
[2019-08-13 12:20] VITALS: RESP 18
[2019-08-13] MEDS ORDERED: VANCOMYCIN TROUGH DUE 1 EACH MISC MISCELLANE ONE (15:00)
[2019-08-13] MEDS: VANCOMYCIN 1,250 MG in SODIUM CHLORIDE 0.9% 250 ML IVPB SCH (17:44)
[2019-08-13] MEDS: HYDROmorphone 1 MG/ML 1 ML SYRINGE IVP PRN (21:25)
--- NOTE | 2019-08-13 23:43 | PN ---
PROGRESS NOTE DATE OF SERVICE: 08/13/2019. REASON FOR FOLLOWUP: 1. Right arm abscess and cellulitis. 2. UTI. INTERVAL HISTORY: The patient was seen on rounds earlier this afternoon. The patient has been afebrile. Right upper arm pain and swelling has slightly decreased. Did have some drainage. Denies any chest pain, cough. No abdominal pain. No diarrhea. PHYSICAL EXAMINATION: Blood pressure is 139/59 with a pulse of 99. Temperature 97.9, she is 98% on room air. General description: Middle-age female up in the bed in no distress. Respiratory system: Unlabored breathing, clear to auscultation anteriorly. Heart S1, S2. Regular rate and rhythm. Abdomen soft, no tenderness. Right arm swelling and redness has improved. Still has slight drainage. LABS: Hemoglobin 11.3, white count 7.6, creatinine 0.60. DIAGNOSTIC IMPRESSION AND PLAN: 1. Patient with right arm abscess from IV drug use. Culture with MRSA infection. Continue with IV Vancomycin. hopefully finish therapy with oral Bactrim DS. 2. E coli urinary tract infection, currently covered with amoxicillin, should be covered with Bactrim on discharge. Family at the bedside, all questions and concerns were answered. MMODL / IJN: [id number] / BOY
[2019-08-14] MEDS: VANCOMYCIN 1,250 MG in SODIUM CHLORIDE 0.9% 250 ML IVPB SCH ×3 (00:01→13:34)
[2019-08-14 05:31] VITALS: BP 110/77; PULSE 98; TEMP 98.1
[2019-08-14] MEDS: METHADONE 10 MG TAB PO SCH (05:55)
[2019-08-14] MEDS: AMOXICILLIN 500 MG CAP PO SCH (08:36)
[2019-08-14] MEDS: SODIUM CHLORIDE 0.9% 1,000 ML IV SCH (08:36)
[2019-08-14] MEDS: NICOTINE 21MG/24HR PATCH TRANSDERM SCH (08:36)
--- NOTE | 2019-08-14 11:29 | P.DS ---
Providers Date of admission: 08/12/19 11:02 Expected date of discharge: 08/14/19 Attending physician: Fede Coe Consults: 08/10/19 09:27 Consult Physician Routine Consulting Provider: Joseph Mcnamara Consult Reason/Comments: medical management Do you want consulting provider notified?: Yes 08/10/19 13:23 Consult Physician Routine Consulting Provider: Minnie Vila Consult Reason/Comments: Right arm abscess Do you want consulting provider notified?: Yes Primary care physician: Stated None Hospital Course: Discharge diagnoses Sepsis due to abscess MRSA right upper extremity abscess E. coli UTI Transaminitis Chronic hep C History of IV heroin drug abuse Opioid dependence on Suboxone Hospital course The patient is a 24-year-old female with history of IV her drug abuse and was admitted with sepsis after presenting with elevated white count of 19 And was noted to be febrile with a positive source of infection being right upper extremity abscess and urinary tract infection. The patient was started on empiric IV antibiotics with vancomycin and Zosyn De-escalated to ampicillin. Gen. surgery was consulted for incision and drainage cultures were sent that grew MRSA see sensitivity list, urine culture grew E. coli. general surgery recommended local wound care with Aquacel silver as the patient was transitioned to oral Bactrim on discharge is recommended to follow-up with general surgery and ID. With treatment the patient had resolving erythema and was afebrile and had a normal white count on discharge. The patient had been started on methadone while inpatient and reportedly was taken Suboxone for ongoing opioid dependence, she reports to have only one strip of Suboxone left. Patient was advised to follow up with her regular doctor Carly to have her refill of her Suboxone therapy. She was discharged home in stable condition this discharge process took approximately 35 minutes Focused exam Skin< dressing to right upper arm clean dry and intact. Patient Condition at Discharge: Serious Plan - Discharge Summary Discharge Rx Participant: No New Discharge Prescriptions: New Sulfamethox-Tmp 800-160Mg [Bactrim DS 800-160 mg] 1 tab PO Q12HR #120 tab Continue Ibuprofen [Motrin Ib] 800 mg PO Q6H PRN PRN Reason: Pain Discharge Medication List Ibuprofen [Motrin Ib] 800 mg PO Q6H PRN 08/10/19 [History] Sulfamethox-Tmp 800-160Mg [Bactrim DS 800-160 mg] 1 tab PO Q12HR #120 tab 08/14/19 [Rx] Follow up Appointment(s)/Referral(s): Fede Coe MD [Medical Doctor] - 08/22/19 9:00 am Jacob Carroll MD [REFERRING] - 08/19/19 2:20 pm Minnie Vila MD [STAFF PHYSICIAN] - 08/20/19 2:00 pm Patient Instructions/Handouts: Sulfamethoxazole/Trimethoprim (By mouth), MRSA (Methicillin-Resistant Staphylococcus Aureus) (DC), Wound Infection (DC), Acute Wound Care (GEN), Abscess (GEN) Discharge Disposition: HOME SELF-CARE
--- NOTE | 2019-08-14 11:35 | P.PN ---
<Shellie Tse - Last Filed: 08/14/19 11:34> Subjective Progress Note Date: 08/14/19 CHIEF COMPLAINT: Right arm abscess HISTORY OF PRESENT ILLNESS: Patient examined this morning at the bedside. She is status post incision and drainage of right arm abscess. Postop day #4. C ultures positive for MRSA. Pain states her pain is controlled at this time. She is afebrile. She is anxious to be discharged home today. PHYSICAL EXAM: VITAL SIGNS: Reviewed. GENERAL: Well-developed in no acute distress. HEENT: No sclera icterus. Extraocular movements grossly intact. Moist buccal mucosa. Head is atraumatic, normocephalic. ABDOMEN: Soft. Nondistended. Nontender. NEUROLOGIC: Alert and oriented. Cranial nerves II through XII grossly intact. SKIN: Dressing to right arm clean dry intact. Minimal surrounding erythema. ASSESSMENT: 1. Right arm abscess, status post incision and drainage, cultures positive for MRSA PLAN: -Continue local wound care -Continue antibiotics per infectious disease -Patient stable for discharge home today from surgical standpoint. Discharge order placed per medicine. Nurse practitioner note has been reviewed by physician. Signing provider agrees with the documented findings, assessment, and plan of care. Objective - Vital Signs Vital signs: Vital Signs Temp 98.1 F 08/14/19 05:00 Pulse 98 08/14/19 05:00 Resp 18 08/14/19 05:00 BP 110/77 08/14/19 05:00 Pulse Ox 98 08/14/19 05:00 Intake & Output 08/13/19 08/14/19 08/14/19 18:59 06:59 18:59 Intake Total 850 250 Balance 850 250 Intake: Intake, IV Titration 850 250 Amount Sodium Chloride 0.9% 1, 600 000 ml @ 100 mls/hr IV . Q10H [facility] Rx#:[id number] Vancomycin 1,250 mg In 250 Sodium Chloride 0.9% 250 ml @ 125 mls/hr IVPB Q6HR [facility] Rx#:[id number] Vancomycin 1,500 mg In 250 Sodium Chloride 0.9% 250 ml @ 125 mls/hr IVPB Q6H [facility] Rx#:[id number] Other: Voiding Method Toilet Toilet # Voids 1 - Labs CBC & Chem 7: 08/13/19 09:41 08/13/19 09:41 Labs: Microbiology - Last 24 Hours (Table) 08/10/19 13:04 Gram Stain - Final Arm - Right Wound Culture - Final Methicillin resist S. aureus 08/10/19 00:20 Blood Culture - Preliminary Blood No Growth after 96 hours <Fede Coe - Last Filed: 08/14/19 18:03> Subjective As above. Patient discharge prior to my arrival Objective - Vital Signs Vital signs: Vital Signs Temp 98.1 F 08/14/19 05:00 Pulse 98 08/14/19 05:00 Resp 18 08/14/19 05:00 BP 110/77 08/14/19 05:00 Pulse Ox 98 08/14/19 05:00 Intake & Output 08/13/19 08/14/19 08/14/19 18:59 06:59 18:59 Intake Total 850 250 Balance 850 250 Intake: Intake, IV Titration 850 250 Amount Sodium Chloride 0.9% 1, 600 000 ml @ 100 mls/hr IV . Q10H [facility] Rx#:[id number] Vancomycin 1,250 mg In 250 Sodium Chloride 0.9% 250 ml @ 125 mls/hr IVPB Q6HR [facility] Rx#:[id number] Vancomycin 1,500 mg In 250 Sodium Chloride 0.9% 250 ml @ 125 mls/hr IVPB Q6H [facility] Rx#:[id number] Other: Voiding Method Toilet Toilet # Voids 1 - Labs CBC & Chem 7: 08/13/19 09:41 08/13/19 09:41 Labs: Microbiology - Last 24 Hours (Table) 08/10/19 13:04 Anaerobic Culture - Final Arm - Right 08/10/19 13:04 Gram Stain - Final Arm - Right Wound Culture - Final Methicillin resist S. aureus 08/10/19 00:20 Blood Culture - Preliminary Blood No Growth after 96 hours Assessment and Plan (1) Abscess of right upper extremity Status: Acute Code(s): L02.413 - CUTANEOUS ABSCESS OF RIGHT UPPER LIMB SNOMED Code(s): 07765007543146605
--- NOTE | 2019-08-14 15:59 | PN ---
PROGRESS NOTE DATE OF SERVICE: 08/14/2019 REASON FOR FOLLOWUP: Right arm abscess and cellulitis. INTERVAL HISTORY: The patient is currently afebrile. The patient is breathing comfortably. The patient denies having any chest pain or cough. No abdominal pain or pain to the right arm area. PHYSICAL EXAMINATION: Blood pressure is 110/77 with a pulse of 98, temperature 98.1. She is 98% on room air. General description is a middle-aged female lying in bed in no distress. RESPIRATORY SYSTEM: Unlabored breathing. Clear to auscultation anteriorly. HEART: S1, S2. Regular rate and rhythm. ABDOMEN: Soft. No tenderness. Right arm swelling and redness have improved. LABS: No new labs have been obtained today. DIAGNOSTIC IMPRESSION AND PLAN: Patient with right arm abscess from IV drug use, status post surgical drainage. The patient is currently covered with vancomycin. That will be transitioned to Bactrim DS one twice a day for 10 days. Local wound care with Aquacel Silver packing. Follow up in the wound care center next week. Continue with supportive care. MMODL / IJN: [id number] /
[2019-08-14] MEDS ORDERED: VANCOMYCIN TROUGH DUE 1 EACH MISC MISCELLANE ONE (17:00)
== END 2019-08-14 14:10 | disposition home or self-care (01) | DRG 854 ==
LOC: EC 23:16 → 3NMEDONC 08-10 01:07 → OBSVTOIN 08-12 11:02
PROVIDERS: ADMIT Surgery; ATTEND Surgery
PROC: 0J9G0ZZ Drainage of Right Lower Arm Subcutaneous Tissue and Fascia, Open Approach (ICD-10-PCS; principal; 2019-08-10 11:00)
DX: A41.51 Sepsis due to Escherichia coli [E. coli] (principal); N39.0 Urinary tract infection, site not specified; L02.413 Cutaneous abscess of right upper limb; L03.113 Cellulitis of right upper limb; F11.20 Opioid dependence, uncomplicated; B18.2 Chronic viral hepatitis C; B95.62 Methicillin resistant Staphylococcus aureus infection as the cause of diseases classified elsewhere; B96.20 Unspecified Escherichia coli [E. coli] as the cause of diseases classified elsewhere; F17.200 Nicotine dependence, unspecified, uncomplicated; Z86.14 Personal history of Methicillin resistant Staphylococcus aureus infection; Z91.040 Latex allergy status
CPT/HCPCS: 36415; 80053; 80202; 81001; 81025; 82565; 83605; 85025; 87040; 87070; 87075; 87077; 87086; 87186; 87205; 96365; 96367; 99284

== ENCOUNTER 2019-08-17 15:05 | Emergency (ER) | payer OTHER ==
[2019-08-17 15:13] VITALS: TEMP 98.3
[2019-08-17] MEDS ORDERED: FLUCONAZOLE 150 MG TAB PO STA (15:21)
--- NOTE | 2019-08-17 15:25 | ED ---
General Adult HPI - General Chief complaint: Recheck/Abnormal Lab/Rx Stated complaint: POST OP RT ARM PROBLEM Time Seen by Provider: 08/17/19 15:15 Source: patient Mode of arrival: ambulatory Limitations: no limitations - History of Present Illness Initial comments: 24 year-old female patient with past medical history of IV drug abuse presents to the emergency department today requesting a dressing change and supplies. States that she had incision and drainage of her right arm on 08/13/[address] Coe. Patient states that she as well as to repack the wound every day and ran out of dressing supplies. Patient states she has been getting drainage from the area. She is also being treated for a urinary tract infection. She is taking antibiotics currently. She is reporting thick white drainage and itching to her genitalia. States that symptoms are consistent with yeast infection that she has had in the past. Denies any fevers or chills. Patient denies any recent rash, shortness breath, chest pain, abdominal pain, nausea, vomiting, diarrhea, constipation, back pain, numbness, tingling, dizziness, weakness, headache, visual changes, or any other complaints. - Related Data Home Medications Medication Instructions Recorded Confirmed Ibuprofen [Motrin Ib] 800 mg PO Q6H PRN 08/10/19 08/10/19 Previous Rx's Medication Instructions Recorded Sulfamethox-Tmp 800-160Mg [Bactrim 1 tab PO Q12HR #120 tab 08/14/19 DS 800-160 mg] Fluconazole [Diflucan] 150 mg PO ONCE #1 tab 08/17/19 Miconazole Nitrate [Monistat 1] 1 each VG ONCE #1 kit 08/17/19 Allergies Allergy/AdvReac Type Severity Reaction Status Date / Time latex Allergy Rash/Hives Verified 08/17/19 15:09 Review of Systems ROS Statement: Those systems with pertinent positive or pertinent negative responses have been documented in the HPI. ROS Other: All systems not noted in ROS Statement are negative. Past Medical History Past Medical History: No Reported History Additional Past Medical History / Comment(s): cellulitis on lower back History of Any Multi-Drug Resistant Organisms: MRSA Date of last positivie culture/infection: 08/10/19 MDRO Source:: ARM, lowr back Past Surgical History: No Surgical Hx Reported Additional Past Surgical History / Comment(s): I&D r uppre arm Past Anesthesia/Blood Transfusion Reactions: No Reported Reaction Past Psychological History: No Psychological Hx Reported Smoking Status: Current every day smoker Past Alcohol Use History: None Reported Past Drug Use History: Heroin, IV Drug Use, Methamphetamine - Past Family History Brother(s) Additional Family Medical History / Comment(s): MRSA, heart problems as a child General Exam Limitations: no limitations General appearance: alert, in no apparent distress, other (This is a well- developed, well-nourished adult female patient in no acute distress. Vital signs upon presentation are temperature 98.3F, pulse 109, respirations 18, blood pressure 112/48, pulse ox 99% on room air.) Eye exam: Present: normal appearance, PERRL, EOMI. Absent: scleral icterus, conjunctival injection, periorbital swelling ENT exam: Present: normal exam, normal oropharynx, mucous membranes moist Respiratory exam: Present: normal lung sounds bilaterally. Absent: respiratory distress, wheezes, rales, rhonchi, stridor Cardiovascular Exam: Present: regular rate, normal rhythm, normal heart sounds. Absent: systolic murmur, diastolic murmur, rubs, gallop, clicks Extremities exam: Present: full ROM, normal capillary refill, other (There is open incision to the right upper arm, there is purulent drainage noted. No surrounding erythema.). Absent: tenderness, pedal edema, joint swelling, calf tenderness Neurological exam: Present: alert, oriented X3, CN II-XII intact Psychiatric exam: Present: normal affect, normal mood Skin exam: Present: warm, dry, intact, normal color. Absent: rash Course Vital Signs 08/17/19 15:09 Temperature 98.3 F Pulse Rate 109 H Respiratory 18 Rate Blood Pressure 112/48 O2 Sat by Pulse 99 Oximetry Medical Decision Making - Medical Decision Making 24 year-old female patient presents to the emergency department today requesting dressing change to the right upper arm. Patient did have an I&D of an abscess to the area on the of this month, she ran out of dressing supplies. Packing was placed and dressing applied in the ED. She will also be treated for vaginal yeast infection. She is instructed to change dressings as directed by her surgeon. She is instructed to follow-up with her primary care physician on Monday as she has planned. Return parameters were discussed in detail. She verbalizes understanding and agrees with this plan. Disposition Clinical Impression: Dressing change, Vaginal candidiasis Disposition: HOME SELF-CARE Condition: Good Instructions (If sedation given, give patient instructions): Yeast Infection (ED), Chronic Wound Care (ED) Additional Instructions: Continue changing dressing as directed by her surgeon. Follow-up with your primary care physician for recheck in 1-2 days. Return to the emergency department immediately for any new, worsening, or concerning symptoms. Prescriptions: Fluconazole [Diflucan] 150 mg PO ONCE #1 tab Miconazole Nitrate [Monistat 1] 1 each VG ONCE #1 kit Is patient prescribed a controlled substance at d/c from ED?: No Referrals: Jacob Carroll MD [Primary Care Provider] - 1-2 days Time of Disposition: 16:18
[2019-08-17 16:29] VITALS: BP 104/67; PULSE 98; RESP 20
== END 2019-08-17 16:31 | disposition home or self-care (01) ==
LOC: EC 15:05
DX: Z48.01 Encounter for change or removal of surgical wound dressing (principal); B37.3 Candidiasis of vulva and vagina; F17.200 Nicotine dependence, unspecified, uncomplicated; Z91.040 Latex allergy status
CPT/HCPCS: 99282

== ENCOUNTER 2019-12-14 01:40 | Emergency (ER) | payer OTHER ==
[2019-12-14 01:49] VITALS: BP 121/84; PULSE 100; RESP 20; TEMP 98.3
[2019-12-14] MEDS ORDERED: SULFAMETH-TMP DS STARTER PACK 2 TAB BTL PO STA (02:58)
[2019-12-14] MEDS ORDERED: SULFAMETHOX-TMP 800-160MG 1 EACH TAB PO STA (02:58)
--- NOTE | 2019-12-14 03:06 | ED ---
General Adult HPI - General Chief complaint: Skin/Abscess/Foreign Body Stated complaint: MRSA Time Seen by Provider: 12/14/19 02:04 Source: patient, RN notes reviewed, old records reviewed Mode of arrival: ambulatory Limitations: no limitations - History of Present Illness Initial comments: 24-year-old female patient past medical history of substance abuse history of MRSA presents to ED for evaluation of possible MRSA skin infection. Patient reports that she has a 1 pustule on her suprapubic region which has been draining spontaneously. Denies any systemic symptoms. Denies a chance of being . Denies any other complaints. Patient denies any coronavirus exposures, recent travel, cough congestion or fever. Systemic: Pt denies fatigue, fever/chills, rash. Pt denies weakness, night sweats, weight loss. Neuro: Pt denies headache, visual disturbances, syncope or pre-syncope. HEENT: Pt denies ocular discharge or irritation, otalgia, rhinorrhea, pharyngitis or notable lymphadenopathy. Cardiopulmonary: Pt denies chest pain, SOB, heart palpitations, dyspnea on exertion. Abdominal/GI: Pt denies abdominal pain, n/v/d. : Pt denies dysuria, burning w/ urination, frequency/urgency. Denies new onset urinary or bowel incontinence. MSK: Pt denies myalgia, loss of strength or function in extremities. Neuro: Pt denies new onset weakness, paresthesias. - Related Data Home Medications Medication Instructions Recorded Confirmed Ibuprofen [Motrin Ib] 800 mg PO Q6H PRN 08/10/19 08/10/19 Previous Rx's Medication Instructions Recorded Sulfamethox-Tmp 800-160Mg [Bactrim 1 tab PO Q12HR #120 tab 08/14/19 DS 800-160 mg] Fluconazole [Diflucan] 150 mg PO ONCE #1 tab 08/17/19 Miconazole Nitrate [Monistat 1] 1 each VG ONCE #1 kit 08/17/19 Sulfamethox-Tmp 800-160Mg [Bactrim 1 tab PO Q12HR 7 Days #14 tab 12/14/19 DS 800-160 mg] Allergies Allergy/AdvReac Type Severity Reaction Status Date / Time latex Allergy Rash/Hives Verified 12/14/19 01:49 Review of Systems ROS Statement: Those systems with pertinent positive or pertinent negative responses have been documented in the HPI. ROS Other: All systems not noted in ROS Statement are negative. Past Medical History Past Medical History: No Reported History Additional Past Medical History / Comment(s): cellulitis on lower back History of Any Multi-Drug Resistant Organisms: MRSA Date of last positivie culture/infection: 08/10/19 MDRO Source:: ARM, lowr back Past Surgical History: No Surgical Hx Reported Additional Past Surgical History / Comment(s): I&D r uppre arm Past Anesthesia/Blood Transfusion Reactions: No Reported Reaction Past Psychological History: No Psychological Hx Reported Smoking Status: Current every day smoker Past Alcohol Use History: None Reported Past Drug Use History: Heroin, IV Drug Use, Methamphetamine - Past Family History Brother(s) Additional Family Medical History / Comment(s): MRSA, heart problems as a child General Exam - General Exam Comments Initial Comments: Constitutional: NAD, AOX3, Pt has pleasant affect. HEENT: NC/AT, trachea midline, neck supple, no lymphadenopathy. Posterior pharynx non erythematous, without exudates. External ears appear normal, without discharge. Mucous membranes moist. Eyes PERRLA, EOM intact. There is no scleral icterus. No pallor noted. Cardiopulmonary: RRR, no murmurs, rubs or gallops, no JVD noted. Lungs CTAB in anterior and posterior sahu. No peripheral edema. Abdominal exam: Abdomen soft and non-distended. Abdomen non-tender to palpation in all 4 quadrants. Bowel sounds active in LLQ. No hepatosplenomegaly. No ecchymosis Neuro: CN II-XII grossly intact. No nuchal rigidity. No raccon eyes, no guerra sign, no hemotympanum. No cervical spinal tenderness. MSK: 1 x 1 cm pustule suprapubic region draining spontaneously no fluctuance, no streaking, mild erythema. No posterior calf tenderness bilaterally, homans sign negative bilaterally. Posterior tibialis and radial pulse +2 bilaterally. Sensation intact in upper and lower extremities. Full active ROM in upper and lower extremities, 5/5 stregnth. Limitations: no limitations Course Vital Signs 12/14/19 01:48 Temperature 98.3 F Pulse Rate 100 Respiratory 20 Rate Blood Pressure 121/84 O2 Sat by Pulse 100 Oximetry Medical Decision Making - Medical Decision Making 24-year-old female patient past medical history of substance abuse history of MRSA presents to ED for evaluation of possible MRSA skin infection. Patient reports that she has a 1 pustule on her suprapubic region which has been draining spontaneously. Denies any systemic symptoms. Denies a chance of being . Denies any other complaints. Patient vital signs are stable, afebrile. Physical exam displayed: 1 x 1 cm pustule suprapubic region draining spontaneously no fluctuance, no streaking, mild erythema. Patient has been doing warm compresses at home. Culture was obtained. Patient will be discharged 1 week of Bactrim, will follow up with primary care provider and return to ER if condition worsens. Case discussed with Dr. Chin. Disposition Clinical Impression: Superficial skin infection, Skin pustule Disposition: HOME SELF-CARE Condition: Stable Instructions (If sedation given, give patient instructions): Abscess (ED) Additional Instructions: Continue to monitor. Taken antibiotics as directed. Follow up with primary care provider tomorrow. Return to ER if condition worsens in any way. Prescriptions: Sulfamethox-Tmp 800-160Mg [Bactrim DS 800-160 mg] 1 tab PO Q12HR 7 Days #14 tab Is patient prescribed a controlled substance at d/c from ED?: No Referrals: None,Stated [Primary Care Provider] - 1-2 days [facility] - 1-2 days
== END 2019-12-14 03:27 | disposition home or self-care (01) ==
LOC: EC 01:40
DX: L08.9 Local infection of the skin and subcutaneous tissue, unspecified (principal); F17.200 Nicotine dependence, unspecified, uncomplicated; Z91.040 Latex allergy status
CPT/HCPCS: 87070; 87077; 87186; 87205; 99283

== ENCOUNTER 2020-01-19 22:36 | Inpatient (IN) | payer MEDICAID, OTHER ==
[2020-01-20 00:44] LABS: Amphetamine Screen,Urine Not Detected (NotDetected); Barbiturate Screen,Urine Not Detected (NotDetected); Benzodiazepines Screen,Urine Not Detected (NotDetected); Cocaine Screen,Urine Not Detected (NotDetected); Methadone Screen, Urine Not Detected (NotDetected); Opiate Screen,Urine Not Detected (NotDetected); Oxycodone Screen, Urine Not Detected (NotDetected); Phencyclidine Screen,Urine Not Detected (NotDetected); Tricyclic Antidepressant,Urine Not Detected (NotDetected); Urn Cannabinoid Scrn Detected (NotDetected)
--- NOTE | 2020-01-20 01:37 | ED ---
General Adult HPI - General Chief complaint: Psychiatric Symptoms Stated complaint: Mental Health Time Seen by Provider: 01/19/20 22:52 Source: patient, RN notes reviewed, old records reviewed Mode of arrival: ambulatory Limitations: no limitations - History of Present Illness Initial comments: 24-year-old female patient presents in ED for evaluation of psychiatric evaluation. Patient presents to ED with complaints of suicidal ideations. She denies having hurt herself. Denies any physical complaints at this time. Systemic: Pt denies fatigue, fever/chills, rash. Pt denies weakness, night sweats, weight loss. Neuro: Pt denies headache, visual disturbances, syncope or pre-syncope. HEENT: Pt denies ocular discharge or irritation, otalgia, rhinorrhea, pharyngitis or notable lymphadenopathy. Cardiopulmonary: Pt denies chest pain, SOB, heart palpitations, dyspnea on exertion. Abdominal/GI: Pt denies abdominal pain, n/v/d. : Pt denies dysuria, burning w/ urination, frequency/urgency. Denies new onset urinary or bowel incontinence. MSK: Pt denies myalgia, loss of strength or function in extremities. Neuro: Pt denies new onset weakness, paresthesias. - Related Data Home Medications Medication Instructions Recorded Confirmed Ibuprofen [Motrin Ib] 800 mg PO Q6H PRN 08/10/19 08/10/19 Previous Rx's Medication Instructions Recorded Sulfamethox-Tmp 800-160Mg [Bactrim 1 tab PO Q12HR #120 tab 08/14/19 DS 800-160 mg] Fluconazole [Diflucan] 150 mg PO ONCE #1 tab 08/17/19 Miconazole Nitrate [Monistat 1] 1 each VG ONCE #1 kit 08/17/19 Sulfamethox-Tmp 800-160Mg [Bactrim 1 tab PO Q12HR 7 Days #14 tab 12/14/19 DS 800-160 mg] Allergies Allergy/AdvReac Type Severity Reaction Status Date / Time latex Allergy Rash/Hives Verified 12/14/19 01:49 Review of Systems ROS Statement: Those systems with pertinent positive or pertinent negative responses have been documented in the HPI. ROS Other: All systems not noted in ROS Statement are negative. Past Medical History Past Medical History: No Reported History Additional Past Medical History / Comment(s): cellulitis on lower back History of Any Multi-Drug Resistant Organisms: MRSA Date of last positivie culture/infection: 08/10/19 MDRO Source:: ARM, lowr back Past Surgical History: No Surgical Hx Reported Additional Past Surgical History / Comment(s): I&D r uppre arm Past Anesthesia/Blood Transfusion Reactions: No Reported Reaction Past Psychological History: Bipolar, Schizophrenia Smoking Status: Current every day smoker Past Alcohol Use History: None Reported Past Drug Use History: Heroin, IV Drug Use, Methamphetamine - Past Family History Brother(s) Additional Family Medical History / Comment(s): MRSA, heart problems as a child General Exam - General Exam Comments Initial Comments: Constitutional: NAD, AOX3, Pt has pleasant affect. HEENT: NC/AT, trachea midline, neck supple, no lymphadenopathy. Posterior pharynx non erythematous, without exudates. External ears appear normal, without discharge. Mucous membranes moist. Eyes PERRLA, EOM intact. There is no scleral icterus. No pallor noted. Cardiopulmonary: RRR, no murmurs, rubs or gallops, no JVD noted. Lungs CTAB in anterior and posterior sahu. No peripheral edema. Abdominal exam: Abdomen soft and non-distended. Abdomen non-tender to palpation in all 4 quadrants. Bowel sounds active in LLQ. No hepatosplenomegaly. No ecchymosis Neuro: CN II-XII grossly intact. No nuchal rigidity. No raccon eyes, no guerra sign MSK: Full active ROM in upper and lower extremities, 5/5 stregnth. Limitations: no limitations Course Vital Signs 01/19/20 22:46 Temperature 98 F Pulse Rate 119 H Respiratory 18 Rate Blood Pressure 121/70 O2 Sat by Pulse 100 Oximetry Medical Decision Making - Medical Decision Making 24-year-old female patient presents to the for evaluation of suicidal ideations. Denies any plan or any action to hurt herself or any others. Patient denies any physical complaints. Physical exam did not display acute pathology. Patient evaluated by emergency psychiatric services recommended for admission to hospital. Patient is agreeable to this. Case discussed with Dr. Chin. - Lab Data Lab Results 01/20/20 01/20/20 Range/Units 00:26 00:26 Urine HCG, Qual Not Detected (Not Detectd) Urine Opiates Screen Not Detected (NotDetected) Ur Oxycodone Screen Not Detected (NotDetected) Urine Methadone Screen Not Detected (NotDetected) Ur Propoxyphene Screen Not Detected (NotDetected) Ur Barbiturates Screen Not Detected (NotDetected) U Tricyclic Antidepress Not Detected (NotDetected) Ur Phencyclidine Scrn Not Detected (NotDetected) Ur Amphetamines Screen Not Detected (NotDetected) U Methamphetamines Scrn Not Detected (NotDetected) U Benzodiazepines Scrn Not Detected (NotDetected) Urine Cocaine Screen Not Detected (NotDetected) U Marijuana (THC) Screen Detected H (NotDetected) Disposition Clinical Impression: Psychiatric disorder Disposition: ADMITTED IP TO THIS [facility] Condition: Serious Is patient prescribed a controlled substance at d/c from ED?: No Referrals: None,Stated [Primary Care Provider] - 1-2 days
[2020-01-20] MEDS ORDERED: ZIPRASIDONE 20 MG VIAL IM PRN (03:19)
[2020-01-20] MEDS ORDERED: MAG HYDROX/AL HYDROX/SIMETH 30 ML CUP PO PRN (03:19)
[2020-01-20] MEDS ORDERED: MAGNESIUM HYDROXIDE 2,400 MG/10 ML CUP PO PRN (03:19)
[2020-01-20] MEDS: ACETAMINOPHEN TAB 325 MG TAB PO PRN (03:58)
[2020-01-20] MEDS: LORazepam 1 MG TAB PO PRN (03:58)
[2020-01-20] MEDS: NICOTINE 14MG/24HR PATCH TRANSDERM SCH (09:51)
[2020-01-20] MEDS ORDERED: POLYETHYLENE GLYCOL 3350 17 GM POWD.PACK PO STA (12:44)
[2020-01-20] MEDS ORDERED: POLYETHYLENE GLYCOL 3350 17 GM POWD.PACK PO PRN (12:44)
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
--- NOTE | 2020-01-20 15:27 | P.HP ---
Psychiatric H&P - . H&P Date: 01/20/20 History & Physical: IDENTIFYING DATA: She is a 24-year-old single female admitted to the psychiatric unit voluntarily. HISTORY OF PRESENT ILLNESS: I reviewed the medical record and interviewed the patient. She was laying in bed and agreed to come to my office for the interview. This was a difficult interview in that she had difficulty concentrating and attending to the interview. She stated that she can the hospital because she was feeling paranoid. She mumbled something about the television but would not explain herself. She believes that her paranoia was related to her use of heroin and methamphetamine. She expressed an interest in drug rehabilitation treatment. According to the information obtained by the EPS nurse her mother brought her to the ED concerned about increasing paranoia and confusion. Her mother reported that the patient believes that her mother's boyfriend is BORIS and "they are out to get her." She presented to the ED with racing thoughts and spoke about having to protect her brother and there being "crossbows in the house" and "they were targets." Her mother reported that she has history of paranoia and she was diagnosed with schizophrenia when she was 16 years old. She has no follow up treatment because her mother believes the paranoia was due to the continued use of drugs. She alleged that she has been using methamphetamine and heroin intravenously for the last 2 years. However, she admitted that she was at [facility] for detox in drug rehabilitation 2 and half years ago for use of methamphetamine and heroin. She supports her drug use with exchanging sex for drugs in sex for money to buy drugs. According to information obtained from mother she has had problems with drugs for 13 years. She admitted to feeling depressed but denied current thoughts of or suicide. She denied current auditory, visual or olfactory hallucinations. She described feelings of paranoia but did not express clear paranoid ideation or beliefs during this interview. She described possible ideas of reference with regard to her experiences with the television. She denied thought insertion, thought broadcasting or thought control. PAST PSYCHIATRIC HISTORY: According to record, she had one admission "several years"" which is diagnosed with schizophrenia. PAST MEDICAL HISTORY: She said 2 presentations to the ED and 2016 and 2018 for overdose of heroin. She had admission in July 2019 for the treatment of sepsis and a right arm abscess. She was a history of hepatitis C. ALLERGIES: NO KNOWN DRUG ALLERGIES SUBSTANCE USE HISTORY: She is vague about her substance use history and gave information that conflicted with that obtained by the EPS nurse. During our interview, she alleged that she's been using heroin and methamphetamine for the last 2 years. However, her mother told EPS nurse that she has had problems with drug use for the last 13 years. She was in one suspicious treatment 2 and half years ago and that she is no abstinence after discharge. She is never been in a methadone treatment program and denied that she had been prescribed Suboxone for the treatment of heroin use outside of a residential treatment program. FAMILY PSYCHIATRIC/SUBSTANCE USE HISTORY: She is a mother has bipolar illness and her uncle has a diagnosis of schizophrenia LEGAL HISTORY: According to the [facility] court docket she had citations for two controlled substance possession and retail fraud. SOCIAL HISTORY: She is single and has no children. She lives with her mother. She is unemployed and has no income. She let she graduated from high school. MENTAL STATUS EXAM: She presented as a disheveled and sedated appearing 24-year-old female who had difficulty concentrating and attending to the interview. She appeared to fall asleep briefly during the interview. She made intermittent eye contact. She had no distinguishing features or prominent physical abnormalities. She had a blunted facial expression. She was alert and oriented to person, place and time. She had marked psychomotor retardation but no abnormal involuntary movements. Her speech was not spontaneous and had decreased rate, rhythm and volume. Her affect was blunted but appropriate. She denied suicidal ideation or wishes. She denied homicidal ideation. She expressed feelings of hopelessness and helplessness over substance use. She described ideas reference and paranoid ideation. She did not express clear paranoid delusions. Her thinking was concrete but her associations were coherent and logical. She did not demonstrate perseveration, neologisms or blocking. She denied hallucinations did not appear to be responding to internal stimuli. Global impression of intellect is average. She is aware of her illness and need for treatment. STRENGTHS: Supportive family, relatively good health WEAKNESSES: Chronic use of methamphetamine and heroin, lack of income IMPRESSION: She is a 24-year-old single female admitted voluntary to psychiatric unit with a history of increasing paranoia and vague suicidal ideation. She has a history of use of heroin and methamphetamine and alleges that she has been injecting on a daily basis for at least the last 2 years. She had one psychiatric hospitalization where she was diagnosed as schizophrenia but the admission similarly occurred in the context of drug abuse. She was markedly sedated and difficulty concentrating and attending to the interview. She described general paranoia and ideas reference. She should be treated inpatient basis with combination of psychopharmacology and multimodal therapy. When she is psychiatrically stable she would benefit from referral to a substance abuse treatment program. PRINCIPLE DIAGNOSIS: Unspecified psychotic disorder, rule out methamphetamine and/or opiate induced psychotic disorder, opiate use disorder severe, methamphetamine use disorder severe, rule out schizoaffective disorder, rule out schizophrenia, chronic hepatitis C, history of an HARITHA infection. RECOMMENDATION: Admit to psychiatric unit. Safety precautions. Consult medicine for initial physical exam and medical history. clam bed worker completed initial psychosocial assessment coordinate discharge and aftercare services. Ativan 1 mg by mouth 3 times a day when necessary for anxiety or agitation and/or Geodon 20 mg IM twice a day when necessary for agitation or aggression. Supportive treatment of methamphetamine and opiate withdrawal. If opiate withdrawal symptoms become severe consider clonidine. His psychotic symptoms persist and consider a trial of an antipsychotic. Encourage participation in therapeutic groups and activities. Evaluate clinical status response treatment daily basis. Allergies Allergy/AdvReac Type Severity Reaction Status Date / Time latex Allergy Rash/Hives Verified 12/14/19 01:49 Vital Signs Temp 97.8 F 01/20/20 04:27 Pulse 102 H 01/20/20 04:27 Resp 18 01/20/20 04:27 BP 116/76 01/20/20 04:27 Pulse Ox 98 01/20/20 03:00 Intake & Output 01/19/20 01/20/20 01/20/20 18:59 06:59 18:59 Weight 72.121 kg Laboratory Last Values Urine HCG, Qual Not Detected (Not Detectd) 01/20/20 00:26 Urine Opiates Screen Not Detected (NotDetected) 01/20/20 00:26 Ur Oxycodone Screen Not Detected (NotDetected) 01/20/20 00:26 Urine Methadone Screen Not Detected (NotDetected) 01/20/20 00:26 Ur Propoxyphene Screen Not Detected (NotDetected) 01/20/20 00:26 Ur Barbiturates Screen Not Detected (NotDetected) 01/20/20 00:26 U Tricyclic Antidepress Not Detected (NotDetected) 01/20/20 00:26 Ur Phencyclidine Scrn Not Detected (NotDetected) 01/20/20 00:26 Ur Amphetamines Screen Not Detected (NotDetected) 01/20/20 00:26 U Methamphetamines Scrn Not Detected (NotDetected) 01/20/20 00:26 U Benzodiazepines Scrn Not Detected (NotDetected) 01/20/20 00:26 Urine Cocaine Screen Not Detected (NotDetected) 01/20/20 00:26 U Marijuana (THC) Screen Detected (NotDetected) H 01/20/20 00:26 01/20/20 08:55 01/20/20 15:24
[2020-01-21 07:07] LABS: Basophils % (A) 0 %; Eosinophils # (A) 0.2 k/uL (0-0.7); Eosinophils % (A) 2 %; Lymphocytes # (A) 3.5 k/uL (1.0-4.8); Lymphocytes % (A) 39 %; MCH 29.5 pg (25.0-35.0); MCHC 32.6 g/dL (31.0-37.0); MCV 90.7 fL (80.0-100.0); Mean Platelet Volume 10.4; Monocytes # (A) 0.6 k/uL (0-1.0); Monocytes % (A) 7 %; Neutrophils # (A) 4.3 k/uL (1.3-7.7); Neutrophils % (A) 48 %; Platelet Count 315 k/uL (150-450); RBC 4.74 m/uL (3.80-5.40); RDW 13.2 % (11.5-15.5); WBC 8.9 k/uL (3.8-10.6)
[2020-01-21 07:16] LABS: ALT 86 U/L (4-34); AST 47 U/L (14-36); African American GFR (CKD) >90 (>60 ml/min/1.73 sqM); Albumin 4.5 g/dL (3.5-5.0); Alkaline Phosphatase 73 U/L (38-126); Anion Gap 10 mmol/L; Blood Urea Nitrogen 13 mg/dL (7-17); Calcium 9.6 mg/dL (8.4-10.2); Carbon Dioxide 23 mmol/L (22-30); Chloride 105 mmol/L (98-107); Cholesterol 161 mg/dL (<200); Glucose 89 mg/dL (74-99); HDL Cholesterol 65 mg/dL (40-60); LDL Cholesterol,Calculated 79 mg/dL (0-99); Non-African American GFR(CKD) >90 (>60 ml/min/1.73 sqM); Potassium 4.7 mmol/L (3.5-5.1); Sodium 138 mmol/L (137-145); Total Bilirubin 0.4 mg/dL (0.2-1.3); Total Protein 8.4 g/dL (6.3-8.2); Triglycerides 85 mg/dL (<150)
[2020-01-21] MEDS: NICOTINE 14MG/24HR PATCH TRANSDERM SCH (07:46)
[2020-01-21] MEDS: LORazepam 1 MG TAB PO PRN ×2 (07:46→16:32)
[2020-01-21 14:45] LABS: Hemoglobin A1C 4.8 % (4.0-6.0)
--- NOTE | 2020-01-21 15:38 | P.PN ---
Subjective Progress Note Date: 01/21/20 Principal diagnosis: Unspecified mood disorder, rule out methamphetamine and are opiate induced mood disorder, opiate use disorder severe, methamphetamine use disorder severe, chron ic hepatitis C, history of MSRA infection I reviewed the medical record, interviewed the patient and discuss her treatment and treatment plan during team meeting. She alleged that she has no recolle ction of our meeting yesterday. She talked about about her substance use and substance abuse problem and again expressed an interest in entering a residential substance abuse treatment program. She is having mild opiate withdrawal symptoms including opiate craving, restlessness, diffuse discomfort, stomach cramping and anxiety. She denied that she is currently experiencing psychotic symptoms such as paranoia, ideas reference, or hallucinations. She feels depressed and anxious but is denying suicidal thoughts. Objective - Vital Signs Vital signs: Vital Signs Temp 99.9 F H 01/21/20 13:28 Pulse 81 01/21/20 06:40 Resp 18 01/21/20 06:40 BP 126/67 01/21/20 06:40 Pulse Ox 99 01/21/20 06:40 - Exam She presented as a disheveled appearing 24-year-old female who looked older than his stated age. She made eye contact and attended to the interview. She had no prominent physical maladies. She had a blunted facial expression. She was alert and oriented to person, place and time. She showed psychomotor retardation but no abnormal movements. Her speech was spontaneous with decreased rate, rhythm and volume. Affect was blunted but stable and appropriate. She denied suicidal ideation, wishes or homicidal ideation. She ruminated about her substance abuse. Her thinking was concrete. Associations were coherent and logical. She denied hallucinations and did not appear to be responding to internal stimuli. - Labs CBC & Chem 7: 01/21/20 06:48 01/21/20 06:48 Labs: Abnormal Lab Results - Last 24 Hours (Table) 01/21/20 Range/Units 06:48 AST 47 H (14-36) U/L ALT 86 H (4-34) U/L Total Protein 8.4 H (6.3-8.2) g/dL HDL Cholesterol 65 H (40-60) mg/dL Assessment and Plan Assessment: She is much more alert, focused and attentive admission. She is experiencing mild opiate withdrawal symptoms. She recognizes her substance abuse program and is interested in substance abuse treatment. Plan: Continue psychiatric hospitalization. Symptomatic treatment of opiate withdrawal, safety precautions. Continue Ativan 1 mg by mouth 3 times a day when necessary for anxiety. Geodon 20 IM for agitation or aggression. life skills worker to assist with [facility] to the [facility]. Encourage participation in therapeutic groups and activities. Evaluate clinical status response to treatment daily basis.
[2020-01-22 07:03] VITALS: RESP 14
[2020-01-22] MEDS: NICOTINE 14MG/24HR PATCH TRANSDERM SCH (07:59)
[2020-01-22] MEDS: LORazepam 1 MG TAB PO PRN ×2 (07:59→15:59)
[2020-01-22] MEDS: ACETAMINOPHEN TAB 325 MG TAB PO PRN ×2 (07:59→12:16)
--- NOTE | 2020-01-22 13:51 | P.PN ---
Subjective Progress Note Date: 01/22/20 Principal diagnosis: Unspecified mood disorder, rule out methamphetamine and are opiate induced mood disorder, opiate use disorder severe, methamphetamine use disorder severe, chron ic hepatitis C, history of MSRA infection I reviewed the medical record, interviewed the patient and discuss her treatment and treatment plan during team meeting. She was irritable and demanding dis charge. She complained that the nursing staff would not tell her when she would be discharged. I explained that decision is made by the treatment team and UC with my recommendation. She had her intake assessment yesterday and her manager social informed me that she has an intake at the [facility] on 01/24/2020. She requested discharge before her intake in order to go home and "pack"". She states he currently denying opiate withdrawal symptoms but I suspect her irritability is a symptom of her withdrawal. She has not been attending therapeutic groups and activities. She slept 6 hours last night. She continues to requests when necessary Ativan for complaints of anxiety. Objective - Vital Signs Vital signs: Vital Signs Temp 98.9 F 01/22/20 07:02 Pulse 97 01/22/20 07:02 Resp 14 01/22/20 07:02 BP 121/61 01/22/20 07:02 Pulse Ox 99 01/21/20 06:40 - Exam She presented as a disheveled appearing 24-year-old female who looked older than his stated age. She made eye contact and attended to the interview. She had a angry facial expression. She was alert and oriented to person, place and time. She was restless but no abnormal movements. Her speech was spontaneous with decreased rate, rhythm and volume. Affect was dysphoric, irritable and angry. She denied suicidal ideation, wishes or homicidal ideation. She ruminated about discharge and aftercare. Her thinking was concrete. Associations were coherent and logical. She denied hallucinations and did not appear to be responding to internal stimuli. - Labs CBC & Chem 7: 01/21/20 06:48 01/21/20 06:48 Assessment and Plan Assessment: She continues to have opiate withdrawal symptoms. She is interested in residential substance abuse treatment and is scheduled for admission to a residential program on Monday. Plan: Continue psychiatric hospitalization. Plan for discharge on 01/23/2020 Symptomatic treatment of opiate withdrawal, safety precautions. Continue Ativan 1 mg by mouth 3 times a day when necessary for anxiety. Geodon 20 IM for agitation or aggression. Encourage participation in therapeutic groups and activities. Evaluate clinical status response to treatment daily basis.
[2020-01-23 07:01] VITALS: BP 123/64; PULSE 89; TEMP 98
[2020-01-23] MEDS: NICOTINE 14MG/24HR PATCH TRANSDERM SCH (08:15)
[2020-01-23] MEDS: ACETAMINOPHEN TAB 325 MG TAB PO PRN (08:17)
[2020-01-23] MEDS: LORazepam 1 MG TAB PO PRN (08:19)
--- NOTE | 2020-01-23 14:54 | P.DS ---
Providers Date of admission: 01/20/20 03:12 Attending physician: Hugo Michele MD Consults: 01/20/20 03:19 Consult Physician Routine Consulting Provider: Juana Reyes Consult Reason/Comments: h&p FOR MENTAL HEALTH ADMISSION Do you want consulting provider notified?: Yes Primary care physician: Stated None - Discharge Diagnosis(es) (1) Drug-induced psychotic disorder Status: Acute (2) Drug-induced mood disorder Status: Resolved Priority: Medium (3) Amphetamine use disorder, severe, dependence Status: Chronic Priority: High (4) Opioid use disorder, severe, dependence Status: Chronic Priority: High (5) Opioid withdrawal Status: Acute Priority: Low Hospital Course: he is a 24-year-old single female admitted to the psychiatric unit voluntarily. Our initial interview was difficult interview in that she had difficulty concentrating and attending to the interview. She stated that she can the hospital because she was feeling paranoid. She mumbled something about the television but would not explain herself. She believes that her paranoia was related to her use of heroin and methamphetamine. She expressed an interest in drug rehabilitation treatment. According to the information obtained by the EPS nurse her mother brought her to the ED concerned about increasing paranoia and confusion. Her mother reported that the patient believes that her mother's boyfriend is BORIS and "they are out to get her." She presented to the ED with racing thoughts and spoke about having to protect her brother and there being "crossbows in the house" and "they were targets." Her mother reported that she has history of paranoia and she was diagnosed with schizophrenia when she was 16 years old. She has no follow up treatment because her mother believes the paranoia was due to the continued use of drugs. She alleged that she has been using methamphetamine and heroin intravenously for the last 2 years. However, she admitted that she was at [facility] for detox in drug rehabilitation 2 and half years ago for use of methamphetamine and hero in. She supports her drug use with exchanging sex for drugs in sex for money to buy drugs. According to information obtained from mother she has had problems with drugs for 13 years. She admitted to feeling depressed but denied current thoughts of or suicide. She denied current auditory, visual or olfactory hallucinations. She described feelings of paranoia but did not express clear paranoid ideation or beliefs during this interview. She described possible ideas of reference with regard to her experiences with the television. She denied thought insertion, thought broadcasting or thought control. She is vague about her substance use history and gave information that conflicted with that obtained by the EPS nurse. During our interview, she alleged that she's been using heroin and methamphetamine for the last 2 years. However, her mother told EPS nurse that she has had problems with drug use for the last 13 years. She was in one suspicious treatment 2 and half years ago and that she is no abstinence after discharge. She is never been in a methadone treatment program and denied that she had been prescribed Suboxone for the treatment of heroin use outside of a residential treatment program. We admitted her to psychiatric unit under the care of this literary writer. Provided a copy a biopsychosocial assessment. The bridal consultant hoister completed initial psychosocial assessment and physical exam and diagnosed constipation, tobacco use and polysubstance abuse. The second day of admission She was much more alert. Her thinking was organized. She alleged she had no recollection of her initial interview. She requested the Ativan for complaints of subjective anxiety and requested a prescription of Ativan. She agreed to residential substance abuse treatment plan the social secretary arrange for her to have a telephone interview with [facility]. She scheduled for admission to the [facility] on 01/24/2020. She had mild symptoms of opiate withdrawal. She was intermittently restless and demanding. She attended some therapeutic groups and activities. She posed no management problems had no episodes of behavioral dyscontrol. At time of discharge she was restless. Her speech was spontaneous with normal rate and rhythm. Affect was anxious. She denied suicidal ideation, wishes or homicidal ideation. She denied feeling hopeless, helpless or worthless. She didn't express ideas reference, paranoid ideation or delusions. Her thinking was concrete. Associations were coherent and logical. She denied hallucinations didn't appear to responding to internal stimuli. Patient Condition at Discharge: Stable Plan - Discharge Summary Discharge Rx Participant: No New Discharge Prescriptions: New Nicotine 14Mg/24Hr Patch [Habitrol] 1 patch TRANSDERM DAILY patch Continue Ibuprofen [Motrin Ib] 800 mg PO Q6H PRN PRN Reason: Pain Discontinued Sulfamethox-Tmp 800-160Mg [Bactrim DS 800-160 mg] 1 tab PO Q12HR #120 tab Fluconazole [Diflucan] 150 mg PO ONCE #1 tab Miconazole Nitrate [Monistat 1] 1 each VG ONCE #1 kit Sulfamethox-Tmp 800-160Mg [Bactrim DS 800-160 mg] 1 tab PO Q12HR 7 Days #14 tab Discharge Medication List Ibuprofen [Motrin Ib] 800 mg PO Q6H PRN 08/10/19 [History] Nicotine 14Mg/24Hr Patch [Habitrol] 1 patch TRANSDERM DAILY patch 01/23/20 [Rx] Follow up Appointment(s)/Referral(s): intake, intake [Other] - 01/24/20 12:00 pm (Intake at 12 pm on 01/24/20) None,Stated [Primary Care Provider] - 1-2 days Patient Instructions/Handouts: How to Stop Smoking (DC), Brief Psychotic Disorder (DC) Activity/Diet/Wound Care/Special Instructions: Activity and diet as tolerated. Avoid the use of street drugs and alcohol. Take all medications as prescribed. When you are in need of refills on your medications please contact your medical provider and/or outpatient psychiatrist to have this done. Please go to scheduled outpatient appointment for aftercare treatment. If symptoms return or become worse, call the crisis line at and/or go to the nearest emergency room for evaluation. Discharge Disposition: HOME SELF-CARE
== END 2020-01-23 12:38 | disposition home or self-care (01) | DRG 897 ==
LOC: EC 22:36 → 3MHU 01-20 03:12
PROVIDERS: ADMIT Psychiatry & Neurology Psychiatry; ATTEND Psychiatry & Neurology Psychiatry
DX: F11.259 Opioid dependence with opioid-induced psychotic disorder, unspecified (principal); F15.259 Other stimulant dependence with stimulant-induced psychotic disorder, unspecified; R45.851 Suicidal ideations; F31.9 Bipolar disorder, unspecified; F11.23 Opioid dependence with withdrawal; F17.200 Nicotine dependence, unspecified, uncomplicated; F20.9 Schizophrenia, unspecified; F41.9 Anxiety disorder, unspecified; K59.00 Constipation, unspecified; B19.20 Unspecified viral hepatitis C without hepatic coma; Z56.0 Unemployment, unspecified; Z79.899 Other long term (current) drug therapy; Z91.040 Latex allergy status; Z86.14 Personal history of Methicillin resistant Staphylococcus aureus infection; Z81.8 Family history of other mental and behavioral disorders
CPT/HCPCS: 80053; 80061; 80306; 81025; 82075; 83036; 84443; 85025; 99285

== ENCOUNTER 2020-02-15 22:03 | Emergency (ER) | payer OTHER ==
[2020-02-15] MEDS ORDERED: diphenhydrAMINE 50 MG/ML 1 ML VIAL IVP STA (22:52)
[2020-02-15] MEDS ORDERED: SODIUM CHLORIDE 0.9% 1,000 ML IV STA (22:52)
[2020-02-15] MEDS ORDERED: KETOROLAC 30 MG/ML 1 ML VIAL IVP STA (22:52)
[2020-02-15] MEDS ORDERED: METOCLOPRAMIDE 5 MG/ML 2 ML VIAL IVP STA (22:52)
[2020-02-15 23:33] LABS: Amorphous Sediment,Urine Few /hpf; Appearance,Urine Cloudy (Clear); Bacteria,Urine Rare /hpf; Bilirubin,Urine Negative (Negative); Blood,Urine Negative (Negative); Color,Urine Yellow; Glucose,Urine (UA) Negative (Negative); Hyaline Casts,Urine 7 /lpf (0-2); Hyphae Yeast, Urine Rare /hpf; Ketones,Urine Negative (Negative); Leukocyte Esterase,Urine Negative (Negative); Mucus,Urine Many /hpf; Nitrite,Urine Negative (Negative); PH, Urine 6.5 (5.0-8.0); Protein,Urine Trace (Negative); RBC,Urine 2 /hpf (0-5); Specific Gravity,Urine 1.023 (1.001-1.035); Squamous Epithelial Cell,Urine 5 /hpf (0-4); WBC,Urine 1 /hpf (0-5)
--- NOTE | 2020-02-15 23:44 | ED ---
Headache HPI - General Chief Complaint: Headache Stated Complaint: Headache Time Seen by Provider: 02/15/20 22:28 Mode of arrival: ambulatory Limitations: no limitations - History of Present Illness Initial Comments: Patient is a 24-year-old female presenting to the emergency Department with complaints of a headache that has been on and off for the past week. She denies any falls or trauma to her head. She states she does have a history of migraines and this feels similar. She's been trying to do with it with Tylenol and Motrin however it is not working. Changes in her vision, lightheadedness. She states his is not the worst headache of her life. She does admit to being a IV drug user, last use was this morning. Patient is also concerned she may be and is requesting a test. Patient denies recent fever, chills, chest pain, shortness of breath, abdominal pain, vomiting, urinary complaints. She does admit to mild nausea. She has no further complaints at this time. - Related Data Home Medications Medication Instructions Recorded Confirmed Ibuprofen [Motrin Ib] 800 mg PO Q6H PRN 08/10/19 08/10/19 Previous Rx's Medication Instructions Recorded Nicotine 14Mg/24Hr Patch [Habitrol] 1 patch TRANSDERM DAILY patch 01/23/20 Allergies Allergy/AdvReac Type Severity Reaction Status Date / Time latex Allergy Rash/Hives Verified 02/15/20 22:26 Review of Systems ROS Statement: Those systems with pertinent positive or pertinent negative responses have been documented in the HPI. ROS Other: All systems not noted in ROS Statement are negative. Past Medical History Past Medical History: No Reported History Additional Past Medical History / Comment(s): cellulitis on lower back, migraine headaches History of Any Multi-Drug Resistant Organisms: MRSA Date of last positivie culture/infection: 08/10/19 MDRO Source:: ARM, lowr back Past Surgical History: No Surgical Hx Reported Additional Past Surgical History / Comment(s): I&D r uppre arm Past Anesthesia/Blood Transfusion Reactions: No Reported Reaction Past Psychological History: Bipolar, Schizophrenia Smoking Status: Current every day smoker Past Alcohol Use History: None Reported Past Drug Use History: Heroin, Marijuana, Methamphetamine - Past Family History Brother(s) Additional Family Medical History / Comment(s): MRSA, heart problems as a child General Exam - General Exam Comments Initial Comments: GENERAL: Patient appears under the influence, and in no acute distress. HEAD: Atraumatic, normocephalic. EYES: Pupils equal round and reactive to light, extraocular movements intact, sclera anicteric, conjunctiva are normal. ENT: TMs normal, nares patent, oropharynx clear without exudates. Moist mucous membranes. NECK: Normal range of motion, supple without lymphadenopathy or JVD. LUNGS: Breath sounds clear to auscultation bilaterally and equal. No wheezes rales or rhonchi. HEART: Regular rate and rhythm without murmurs, rubs or gallops. ABDOMEN: Soft, nontender, normoactive bowel sounds. No guarding, no rebound. No masses appreciated. : Deferred EXTREMITIES: Normal range of motion, no pitting or edema. No clubbing or cyanosis. Strength is 5 out of 5 in upper and lower extremities. NEUROLOGICAL: Cranial nerves II through XII grossly intact. Normal speech, normal gait. PSYCH: Normal mood, normal affect. SKIN: Warm, Dry, normal turgor, no rashes. She has visible track melissa on both arms. Limitations: no limitations Course Vital Signs 02/15/20 02/16/20 22:23 01:06 Temperature 98.2 F 98.6 F Pulse Rate 108 H 78 Respiratory 20 16 Rate Blood Pressure 120/86 112/71 O2 Sat by Pulse 99 100 Oximetry Medical Decision Making - Medical Decision Making Patient is a 24-year-old female here for a headache that has been intermittent for one week. She does have a history of migraines. She admits to being IV drug user with last use today. Exam shows no acute neuro deficits. No red flag symptoms. Her vitals are stable, afebrile. No acute findings on lab work. Patient is not . Patient given fluids, Toradol, Reglan, Benadryl. She reports improvement in her symptoms. She is requesting to be discharged. Patient does have some vomiting that is coming to get her. She is stable for discharge. Return parameters were discussed with the patient she verbalized understanding. Case discussed with Dr. Sims. - Lab Data Result diagrams: 02/15/20 23:15 02/15/20 23:15 Lab Results 02/15/20 02/15/20 02/15/20 Range/Units 23:05 23:05 23:15 WBC 9.9 (3.8-10.6) k/uL RBC 4.73 (3.80-5.40) m/uL Hgb 14.3 (11.4-16.0) gm/dL Hct 43.0 (34.0-46.0) % MCV 90.9 (80.0-100.0) fL MCH 30.2 (25.0-35.0) pg MCHC 33.3 (31.0-37.0) g/dL RDW 12.6 (11.5-15.5) % Plt Count 308 (150-450) k/uL Neutrophils % 70 % Lymphocytes % 20 % Monocytes % 7 % Eosinophils % 1 % Basophils % 0 % Neutrophils # 7.0 (1.3-7.7) k/uL Lymphocytes # 2.0 (1.0-4.8) k/uL Monocytes # 0.7 (0-1.0) k/uL Eosinophils # 0.1 (0-0.7) k/uL Basophils # 0.0 (0-0.2) k/uL Sodium (137-145) mmol/L Potassium (3.5-5.1) mmol/L Chloride (98-107) mmol/L Carbon Dioxide (22-30) mmol/L Anion Gap mmol/L BUN (7-17) mg/dL Creatinine (0.52-1.04) mg/dL Est GFR (CKD-EPI)AfAm (>60 ml/min/1.73 sqM) Est GFR (CKD-EPI)NonAf (>60 ml/min/1.73 sqM) Glucose (74-99) mg/dL Calcium (8.4-10.2) mg/dL Urine Color Yellow Urine Appearance Cloudy H (Clear) Urine pH 6.5 (5.0-8.0) Ur Specific [place] 1.023 (1.001-1.035) Urine Protein Trace H (Negative) Urine Glucose (UA) Negative (Negative) Urine Ketones Negative (Negative) Urine Blood Negative (Negative) Urine Nitrite Negative (Negative) Urine Bilirubin Negative (Negative) Urine Urobilinogen 3.0 (<2.0) mg/dL Ur Leukocyte Esterase Negative (Negative) Urine RBC 2 (0-5) /hpf Urine WBC 1 (0-5) /hpf Ur Squamous Epith Cells 5 H (0-4) /hpf Amorphous Sediment Few H (None) /hpf Urine Bacteria Rare H (None) /hpf Hyaline Casts 7 H (0-2) /lpf Urine Mucus Many H (None) /hpf Ur Yeast w Hyphae Rare (None) /hpf Urine HCG, Qual Not Detected (Not Detectd) Urine Opiates Screen Not Detected (NotDetected) Ur Oxycodone Screen Not Detected (NotDetected) Urine Methadone Screen Not Detected (NotDetected) Ur Propoxyphene Screen Not Detected (NotDetected) Ur Barbiturates Screen Not Detected (NotDetected) U Tricyclic Antidepress Not Detected (NotDetected) Ur Phencyclidine Scrn Not Detected (NotDetected) Ur Amphetamines Screen Detected H (NotDetected) U Methamphetamines Scrn Not Detected (NotDetected) U Benzodiazepines Scrn Not Detected (NotDetected) Urine Cocaine Screen Not Detected (NotDetected) U Marijuana (THC) Screen Detected H (NotDetected) 02/15/20 Range/Units 23:15 WBC (3.8-10.6) k/uL RBC (3.80-5.40) m/uL Hgb (11.4-16.0) gm/dL Hct (34.0-46.0) % MCV (80.0-100.0) fL MCH (25.0-35.0) pg MCHC (31.0-37.0) g/dL RDW (11.5-15.5) % Plt Count (150-450) k/uL Neutrophils % % Lymphocytes % % Monocytes % % Eosinophils % % Basophils % % Neutrophils # (1.3-7.7) k/uL Lymphocytes # (1.0-4.8) k/uL Monocytes # (0-1.0) k/uL Eosinophils # (0-0.7) k/uL Basophils # (0-0.2) k/uL Sodium 135 L (137-145) mmol/L Potassium 4.8 (3.5-5.1) mmol/L Chloride 98 (98-107) mmol/L Carbon Dioxide 30 (22-30) mmol/L Anion Gap 7 mmol/L BUN 9 (7-17) mg/dL Creatinine 0.52 (0.52-1.04) mg/dL Est GFR (CKD-EPI)AfAm >90 (>60 ml/min/1.73 sqM) Est GFR (CKD-EPI)NonAf >90 (>60 ml/min/1.73 sqM) Glucose 107 H (74-99) mg/dL Calcium 9.4 (8.4-10.2) mg/dL Urine Color Urine Appearance (Clear) Urine pH (5.0-8.0) Ur Specific [place] (1.001-1.035) Urine Protein (Negative) Urine Glucose (UA) (Negative) Urine Ketones (Negative) Urine Blood (Negative) Urine Nitrite (Negative) Urine Bilirubin (Negative) Urine Urobilinogen (<2.0) mg/dL Ur Leukocyte Esterase (Negative) Urine RBC (0-5) /hpf Urine WBC (0-5) /hpf Ur Squamous Epith Cells (0-4) /hpf Amorphous Sediment (None) /hpf Urine Bacteria (None) /hpf Hyaline Casts (0-2) /lpf Urine Mucus (None) /hpf Ur Yeast w Hyphae (None) /hpf Urine HCG, Qual (Not Detectd) Urine Opiates Screen (NotDetected) Ur Oxycodone Screen (NotDetected) Urine Methadone Screen (NotDetected) Ur Propoxyphene Screen (NotDetected) Ur Barbiturates Screen (NotDetected) U Tricyclic Antidepress (NotDetected) Ur Phencyclidine Scrn (NotDetected) Ur Amphetamines Screen (NotDetected) U Methamphetamines Scrn (NotDetected) U Benzodiazepines Scrn (NotDetected) Urine Cocaine Screen (NotDetected) U Marijuana (THC) Screen (NotDetected) Disposition Clinical Impression: Headache Disposition: HOME SELF-CARE Condition: Stable Instructions (If sedation given, give patient instructions): Acute Headache (ED) Additional Instructions: Please return to the Emergency Department if symptoms worsen or any other concerns. Is patient prescribed a controlled substance at d/c from ED?: No Referrals: None,Stated [Primary Care Provider] - 1-2 days
[2020-02-16 00:32] LABS: African American GFR (CKD) >90 (>60 ml/min/1.73 sqM); Anion Gap 7 mmol/L; Blood Urea Nitrogen 9 mg/dL (7-17); Calcium 9.4 mg/dL (8.4-10.2); Carbon Dioxide 30 mmol/L (22-30); Chloride 98 mmol/L (98-107); Glucose 107 mg/dL (74-99); Non-African American GFR(CKD) >90 (>60 ml/min/1.73 sqM); Sodium 135 mmol/L (137-145)
[2020-02-16 00:35] LABS: Amphetamine Screen,Urine Detected (NotDetected); Barbiturate Screen,Urine Not Detected (NotDetected); Benzodiazepines Screen,Urine Not Detected (NotDetected); Cocaine Screen,Urine Not Detected (NotDetected); Methadone Screen, Urine Not Detected (NotDetected); Opiate Screen,Urine Not Detected (NotDetected); Oxycodone Screen, Urine Not Detected (NotDetected); Phencyclidine Screen,Urine Not Detected (NotDetected); Tricyclic Antidepressant,Urine Not Detected (NotDetected); Urn Cannabinoid Scrn Detected (NotDetected)
[2020-02-16 00:40] LABS: Basophils % (A) 0 %; Eosinophils # (A) 0.1 k/uL (0-0.7); Eosinophils % (A) 1 %; HGB 14.3 gm/dL (11.4-16.0); Lymphocytes % (A) 20 %; MCH 30.2 pg (25.0-35.0); MCHC 33.3 g/dL (31.0-37.0); MCV 90.9 fL (80.0-100.0); Mean Platelet Volume 8.3; Monocytes # (A) 0.7 k/uL (0-1.0); Monocytes % (A) 7 %; Neutrophils % (A) 70 %; Platelet Count 308 k/uL (150-450); RBC 4.73 m/uL (3.80-5.40); RDW 12.6 % (11.5-15.5); WBC 9.9 k/uL (3.8-10.6)
[2020-02-16 00:42] LABS: Potassium 4.8 mmol/L (3.5-5.1)
[2020-02-16 01:08] VITALS: BP 112/71; PULSE 78; RESP 16; TEMP 98.6
== END 2020-02-16 01:08 | disposition home or self-care (01) ==
LOC: EC 22:03
DX: R51 Headache (principal); R42 Dizziness and giddiness; R11.10 Vomiting, unspecified; F17.200 Nicotine dependence, unspecified, uncomplicated; Z91.040 Latex allergy status
CPT/HCPCS: 36415; 80048; 85025; 81001; 81025; 80306; 99283; 96374; 96375 ×2; 96361; J1200; J2765; J1885

== ENCOUNTER 2020-03-13 18:00 | Emergency (ER) | payer OTHER ==
[2020-03-13 18:18] VITALS: BP 120/79; PULSE 116; RESP 18; TEMP 98.5
[2020-03-13] MEDS ORDERED: LIDOCAINE 1% INJ 10MG/ML (20 ML MDV) SQ ONE (18:42)
[2020-03-13] MEDS ORDERED: CEPHALEXIN 500 MG CAP PO STA (18:42)
--- NOTE | 2020-03-13 18:54 | ED ---
Skin/Abscess/FB HPI - General Chief complaint: Skin/Abscess/Foreign Body Stated complaint: Abscess Time Seen by Provider: 03/13/20 18:25 Source: patient Mode of arrival: ambulatory Limitations: no limitations - History of Present Illness Initial comments: Patient is a 24-year-old female presenting to the emergency Department with complaints of an abscess on her right arm at 2-3 days. She does admit to being an IV drug user and states she has had abscesses in the past. She denies any recent fever, chills, nausea, vomiting. She states there has been no drainage from the area. She has been eating and drinking as normal. She denies any other complaints at this time. Upon arrival to the ER, her vitals are stable. - Related Data Home Medications Medication Instructions Recorded Confirmed Ibuprofen [Motrin Ib] 800 mg PO Q6H PRN 08/10/19 08/10/19 Previous Rx's Medication Instructions Recorded Nicotine 14Mg/24Hr Patch [Habitrol] 1 patch TRANSDERM DAILY patch 01/23/20 Cephalexin [Keflex] 500 mg PO Q6HR 5 Days #20 cap 03/13/20 Allergies Allergy/AdvReac Type Severity Reaction Status Date / Time latex Allergy Rash/Hives Verified 02/15/20 22:26 Review of Systems ROS Statement: Those systems with pertinent positive or pertinent negative responses have been documented in the HPI. ROS Other: All systems not noted in ROS Statement are negative. Past Medical History Past Medical History: No Reported History Additional Past Medical History / Comment(s): cellulitis on lower back, migraine headaches History of Any Multi-Drug Resistant Organisms: MRSA Date of last positivie culture/infection: 08/10/19 MDRO Source:: ARM, lowr back Past Surgical History: No Surgical Hx Reported Additional Past Surgical History / Comment(s): I&D r uppre arm Past Anesthesia/Blood Transfusion Reactions: No Reported Reaction Past Psychological History: Bipolar, Schizophrenia Smoking Status: Current every day smoker Past Alcohol Use History: None Reported Past Drug Use History: Heroin, Marijuana, Methamphetamine - Past Family History Brother(s) Additional Family Medical History / Comment(s): MRSA, heart problems as a child General Exam - General Exam Comments Initial Comments: GENERAL: Well-appearing, well-nourished and in no acute distress. HEAD: Atraumatic, normocephalic. EYES: Pupils equal round and reactive to light, extraocular movements intact, sclera anicteric, conjunctiva are normal. ENT: TMs normal, nares patent, oropharynx clear without exudates. Moist mucous membranes. NECK: Normal range of motion, supple without lymphadenopathy or JVD. LUNGS: Breath sounds clear to auscultation bilaterally and equal. No wheezes rales or rhonchi. HEART: Regular rate and rhythm without murmurs, rubs or gallops. ABDOMEN: Soft, nontender, normoactive bowel sounds. No guarding, no rebound. No masses appreciated. : Deferred EXTREMITIES: Patient has full range of motion of her right upper extremity. Sensation is equal and bilateral. No pitting or edema. No clubbing or cyanosis. NEUROLOGICAL: Normal speech, normal gait. PSYCH: Normal mood, normal affect. SKIN: Warm, Dry, normal turgor. Patient has a 2 cm x 2 cm abscess to the right proximal forearm, palmar aspect. There is some mild overlying erythema, fluctuance and some induration to the area. Limitations: no limitations Course Vital Signs 03/13/20 18:15 Temperature 98.5 F Pulse Rate 116 H Respiratory 18 Rate Blood Pressure 120/79 O2 Sat by Pulse 100 Oximetry Procedures - Moore Protocol (Time Out) Procedure Performed:: I&D Performing Provider: Mary Santizo Nurse: Vanessa Rodas Timeout Date: 03/13/20 Timeout Time: 19:00 Patient Identification (2 identifiers required): Chart, Verbal, Arm Band Patient/Legal Welt Butter Hand has Confirmed: Identity, Site, Procedure, Consent Site: right proximal forearm Site Marked: Yes Site Verified With Patient/Guardian: Yes Final Confirmation: Procedure, Site, Laterality, Confirmed w/Provider - Incision & Drainage Consent Obtained: verbal consent, written consent Indication: Abscess Site: upper extremity (Right proximal forearm, palmar aspect) Size (cm): 2 Anesthetic Used: lidocaine 1% Amount (mLs): 3 I&D Cleaning Method: Alcohol Wipe Scalpel Used: #11 I&D Drainage Obtained: Pus, Blood Culture Obtained?: No Patient Tolerated Procedure: well Medical Decision Making - Medical Decision Making Patient is a 24-year-old female here for an abscess to her right proximal forearm, palmar aspect which is approximately 2 cm x 2 cm. She does admit to being IV drug user. She has had no fevers, nausea, vomiting. She states his been developing over the last 2-3 days. She gave consent for an I and D of the area. I&D was performed, patient had a procedure well. Patient will be placed on Keflex, first dose given in the ER. She'll continue with warm compresses to the area. She is stable for discharge. She is in agreement with this plan of care. Strict return parameters were discussed with the patient and she verbalized understanding. Case discussed with Dr. Williamson. Disposition Clinical Impression: Abscess of right arm, IV drug user Disposition: HOME SELF-CARE Condition: Stable Instructions (If sedation given, give patient instructions): Abscess (ED) Additional Instructions: Please return to the Emergency Department if symptoms worsen or any other concerns. Take antibiotics as prescribed, finish entire dose. Use warm compresses to the area as well. Keep area clean and dry. Prescriptions: Cephalexin [Keflex] 500 mg PO Q6HR 5 Days #20 cap Is patient prescribed a controlled substance at d/c from ED?: No Referrals: None,Stated [Primary Care Provider] - 1-2 days
== END 2020-03-13 19:45 | disposition home or self-care (01) ==
LOC: EC 18:00
DX: L02.413 Cutaneous abscess of right upper limb (principal); F19.90 Other psychoactive substance use, unspecified, uncomplicated; F17.200 Nicotine dependence, unspecified, uncomplicated; Z91.040 Latex allergy status
CPT/HCPCS: 99282; 10060; J2001

== ENCOUNTER 2020-04-06 12:31 | Emergency (ER) | payer OTHER ==
[2020-04-06 12:43] VITALS: BP 120/66; PULSE 111; RESP 18; TEMP 98.3
[2020-04-06] MEDS ORDERED: LIDOCAINE 1% INJ 10MG/ML (20 ML MDV) SQ ONE (12:55)
--- NOTE | 2020-04-06 13:55 | ED ---
Skin/Abscess/FB HPI - General Chief complaint: Skin/Abscess/Foreign Body Stated complaint: abscess rt arm Time Seen by Provider: 04/06/20 12:46 Source: patient Mode of arrival: ambulatory Limitations: no limitations - History of Present Illness Initial comments: Patient is a 24-year-old female presenting to the emergency Department with complaints of right arm abscess that has been increasing over the past 2 days. Patient was seen in ER last month for same thing. Patient states it get better after antibiotics but did start to come back. Patient does admit to being an IV drug user. She denies any fever, chills, nausea, vomiting. She has no further complaints at this time. Upon arrival to the ER, her vitals are stable. - Related Data Previous Rx's Medication Instructions Recorded Cephalexin [Keflex] 500 mg PO Q6HR 10 Days #40 cap 04/06/20 Sulfamethox-Tmp 800-160Mg [Bactrim 1 each PO Q12HR 10 Days #20 tab 04/06/20 Ds] Allergies Allergy/AdvReac Type Severity Reaction Status Date / Time latex Allergy Rash/Hives Verified 04/06/20 13:41 Review of Systems ROS Statement: Those systems with pertinent positive or pertinent negative responses have been documented in the HPI. ROS Other: All systems not noted in ROS Statement are negative. Past Medical History Past Medical History: No Reported History Additional Past Medical History / Comment(s): cellulitis on lower back, migraine headaches History of Any Multi-Drug Resistant Organisms: MRSA Date of last positivie culture/infection: 08/10/19 MDRO Source:: ARM, lowr back Past Surgical History: No Surgical Hx Reported Additional Past Surgical History / Comment(s): I&D r uppre arm Past Anesthesia/Blood Transfusion Reactions: No Reported Reaction Past Psychological History: Bipolar, Schizophrenia Smoking Status: Current every day smoker Past Alcohol Use History: None Reported Past Drug Use History: Heroin, Marijuana, Methamphetamine - Past Family History Brother(s) Additional Family Medical History / Comment(s): MRSA, heart problems as a child General Exam - General Exam Comments Initial Comments: GENERAL: Patient is well-developed and well-nourished. Patient is nontoxic and in no acute distress. HEAD: Atraumatic, normocephalic. EYES: Pupils equal round and reactive to light, extraocular movements intact, sclera anicteric, conjunctiva are normal. Eyelids were unremarkable. ENT: TMs normal, nares patent, oropharynx clear without exudates. Moist mucous membranes. NECK: Normal range of motion, supple without lymphadenopathy or JVD. LUNGS: Unlabored respirations. Breath sounds clear to auscultation bilaterally and equal. No wheezes rales or rhonchi. HEART: Regular rate and rhythm without murmurs, rubs or gallops. ABDOMEN: Soft, nontender, normoactive bowel sounds. No guarding, no rebound. No masses appreciated. : Deferred MUSCULOSKELETAL: Normal extremities with adequate strength and normal range of motion, no pitting or edema. No clubbing or cyanosis. NEUROLOGICAL: Patient is alert and oriented x 3. Motor and sensory are also intact. Normal speech, normal gait. Symmetrical smile. PSYCH: Normal mood, normal affect. SKIN: Warm, Dry, normal turgor. Patient has a 2 cm abscess to the right forearm, there is some mild overlying erythema and swelling. The area is very indurated, very little fluctuance. Limitations: no limitations Course Vital Signs 04/06/20 12:41 Temperature 98.3 F Pulse Rate 111 H Respiratory 18 Rate Blood Pressure 120/66 O2 Sat by Pulse 99 Oximetry Procedures - Incision & Drainage Consent Obtained: verbal consent, written consent Indication: Abscess Site: upper extremity (Right forearm) Size (cm): 2 Anesthetic Used: lidocaine 1% Amount (mLs): 3 I&D Cleaning Method: Chloroprep Sterile Field Used?: Yes Scalpel Used: #11 Needle Aspiration Performed?: No Irrigation Performed?: No I&D Drainage Obtained: Blood Culture Obtained?: No Patient Tolerated Procedure: well Medical Decision Making - Medical Decision Making Patient is a 24-year-old female here for a right forearm abscess. She does admit to being IV drug user. She is afebrile, normal vitals. He did attempt an I&D of the right forearm with very little purulent fluid, mostly blood. Patient will be started on Bactrim and Keflex. I recommended continue with warm compresses. Patient is agreement with this plan of care. Return parameters were discussed with the patient she verbalized understanding. Disposition Clinical Impression: IV drug user, Abscess of right upper extremity Disposition: HOME SELF-CARE Condition: Stable Instructions (If sedation given, give patient instructions): Abscess Incision and Drainage (ED) Additional Instructions: Please return to the Emergency Department if symptoms worsen or any other concerns. Take both antibiotics as prescribed. Follow-up with PCP. Prescriptions: Sulfamethox-Tmp 800-160Mg [Bactrim Ds] 1 each PO Q12HR 10 Days #20 tab Cephalexin [Keflex] 500 mg PO Q6HR 10 Days #40 cap Is patient prescribed a controlled substance at d/c from ED?: No Referrals: None,Stated [Primary Care Provider] - 1-2 days
== END 2020-04-06 14:10 | disposition home or self-care (01) ==
LOC: EC 12:31
DX: L02.413 Cutaneous abscess of right upper limb (principal); F17.200 Nicotine dependence, unspecified, uncomplicated; Z91.040 Latex allergy status; Z86.14 Personal history of Methicillin resistant Staphylococcus aureus infection
CPT/HCPCS: 99283; 10060; J2001

== ENCOUNTER 2020-05-20 11:24 | Emergency (ER) | payer OTHER ==
[2020-05-20 11:37] VITALS: BP 114/74; PULSE 92; RESP 18; TEMP 98.4
--- NOTE | 2020-05-20 11:59 | ED ---
Skin/Abscess/FB HPI - General Chief complaint: Skin/Abscess/Foreign Body Stated complaint: rt arm swelling Time Seen by Provider: 05/20/20 11:40 Source: patient Mode of arrival: ambulatory Limitations: no limitations - History of Present Illness Initial comments: Patient is a 25-year-old female presenting to emergency Department with complaints of possible abscess on her right arm as well as her right upper leg. Patient states she noticed some redness 2 days ago and the pain started. Patient states she was been putting warm compresses on them and has been able to drain them. She denies any fever, chills, nausea, vomiting. Patient admits to being an IV drug abuser. She has had frequent visits for similar complaints. She has not been on antibiotics in the past month. Patient is also complaining of a stye in her right eye that started 3 days ago. She states the area has been draining a little bit but continues to be red and swollen. She denies any other complaints at this time. - Related Data Previous Rx's Medication Instructions Recorded Cephalexin [Keflex] 500 mg PO Q6HR 10 Days #40 cap 05/20/20 Erythromycin Ophth Oint [Romycin 1 applic RIGHT EYE BID 5 Days #1 05/20/20 Ophth Oint] tube Sulfamethox-Tmp 800-160Mg [Bactrim 1 each PO Q12HR 10 Days #20 tab 05/20/20 Ds] Allergies Allergy/AdvReac Type Severity Reaction Status Date / Time latex Allergy Rash/Hives Verified 05/20/20 11:36 Review of Systems ROS Statement: Those systems with pertinent positive or pertinent negative responses have been documented in the HPI. ROS Other: All systems not noted in ROS Statement are negative. Past Medical History Past Medical History: No Reported History Additional Past Medical History / Comment(s): cellulitis on lower back, migraine headaches History of Any Multi-Drug Resistant Organisms: MRSA Date of last positivie culture/infection: 08/10/19 MDRO Source:: ARM, lowr back Past Surgical History: No Surgical Hx Reported Additional Past Surgical History / Comment(s): I&D r uppre arm Past Anesthesia/Blood Transfusion Reactions: No Reported Reaction Past Psychological History: Bipolar, Schizophrenia Smoking Status: Current every day smoker Past Alcohol Use History: None Reported Past Drug Use History: Heroin, Marijuana, Methamphetamine - Past Family History Brother(s) Additional Family Medical History / Comment(s): MRSA, heart problems as a child General Exam - General Exam Comments Initial Comments: GENERAL: Patient is well-developed and well-nourished. Patient is nontoxic and in no acute distress. HEAD: Atraumatic, normocephalic. EYES: Pupils equal round and reactive to light, extraocular movements intact, sclera anicteric, conjunctiva are normal. Right upper eyelid, inner aspect has a hordeolum, which is slightly erythematous, and draining. ENT: TMs normal, nares patent, oropharynx clear without exudates. Moist mucous membranes. NECK: Normal range of motion, supple without lymphadenopathy or JVD. LUNGS: Unlabored respirations. Breath sounds clear to auscultation bilaterally and equal. No wheezes rales or rhonchi. HEART: Regular rate and rhythm without murmurs, rubs or gallops. ABDOMEN: Soft, nontender, normoactive bowel sounds. No guarding, no rebound. No masses appreciated. : Deferred MUSCULOSKELETAL: Normal extremities with adequate strength and normal range of motion, no pitting or edema. No clubbing or cyanosis. NEUROLOGICAL: Patient is alert and oriented x 3. Motor and sensory are also intact. Symmetrical smile. Normal speech, normal gait. PSYCH: Normal mood, normal affect. SKIN: Warm, Dry, normal turgor. Patient has small abscess to the right distal forearm, with some erythematous changes, no active drainage, loss of induration. Patient also has another spot in her right upper leg, with some mild induration and erythema. Both are consistent with a mild abscess and possible cellulitis. Limitations: no limitations Course Vital Signs 05/20/20 11:33 Temperature 98.4 F Pulse Rate 92 Respiratory 18 Rate Blood Pressure 114/74 O2 Sat by Pulse 98 Oximetry Medical Decision Making - Medical Decision Making Patient is a 25-year-old female, history of IVD abuse, presenting with 2 small abscesses, one on her right forearm, one in her right upper leg with mild cellulitic changes. She also has a stye of her right eye, upper eyelid. P atient will be started on Bactrim, Keflex, continue with warm compresses to the areas. I will also prescribe her an antibiotic ointment to use on her sty. She needs to follow up with her eye doctor if symptoms persist. Patient is agreement with this plan of care. She is stable for discharge. Return parameters were discussed with the patient she verbalized understanding. Disposition Clinical Impression: IV drug abuse, Abscess, Hordeolum externum right upper eyelid Disposition: HOME SELF-CARE Condition: Stable Instructions (If sedation given, give patient instructions): Abscess (ED) Additional Instructions: Please return to the Emergency Department if symptoms worsen or any other concerns. Take both antibiotics as prescribed. Use antibiotic ointment on the right eye as prescribed. Follow-up with eye doctor if symptoms persist. Prescriptions: Sulfamethox-Tmp 800-160Mg [Bactrim Ds] 1 each PO Q12HR 10 Days #20 tab Cephalexin [Keflex] 500 mg PO Q6HR 10 Days #40 cap Erythromycin Ophth Oint [Romycin Ophth Oint] 1 applic RIGHT EYE BID 5 Days #1 tube Is patient prescribed a controlled substance at d/c from ED?: No Referrals: None,Stated [Primary Care Provider] - 1-2 days
== END 2020-05-20 12:04 | disposition home or self-care (01) ==
LOC: EC 11:24
DX: L02.413 Cutaneous abscess of right upper limb (principal); H00.011 Hordeolum externum right upper eyelid; F19.10 Other psychoactive substance abuse, uncomplicated; F17.200 Nicotine dependence, unspecified, uncomplicated; Z91.040 Latex allergy status
CPT/HCPCS: 99283

== ENCOUNTER 2020-09-15 01:38 | Emergency (ER) | payer OTHER ==
[2020-09-15 01:46] VITALS: RESP 18; TEMP 98.1
--- NOTE | 2020-09-15 02:09 | ED ---
Psych HPI - General Chief Complaint: Psychiatric Symptoms Stated Complaint: Mental health Time Seen by Provider: 09/15/20 01:48 Source: patient, RN notes reviewed, old records reviewed Mode of arrival: ambulatory - History of Present Illness Initial Comments: This is a 25-year-old female DF patient is presenting for psychiatric evaluation. Patient states she needs psychiatric help MD Complaint: feels depressed, altered mental status -: unknown Quality: constant Improves With: none Worsens With: none Associated Symptoms: denies other symptoms Treatments Prior to Arrival: placed on mental health hold - Related Data Previous Rx's Medication Instructions Recorded Cephalexin [Keflex] 500 mg PO Q6HR 10 Days #40 cap 05/20/20 Erythromycin Ophth Oint [Romycin 1 applic RIGHT EYE BID 5 Days #1 05/20/20 Ophth Oint] tube Sulfamethox-Tmp 800-160Mg [Bactrim 1 each PO Q12HR 10 Days #20 tab 05/20/20 Ds] Allergies Allergy/AdvReac Type Severity Reaction Status Date / Time latex Allergy Rash/Hives Verified 09/15/20 01:46 Review of Systems ROS Statement: Those systems with pertinent positive or pertinent negative responses have been documented in the HPI. ROS Other: All systems not noted in ROS Statement are negative. Past Medical History Past Medical History: No Reported History Additional Past Medical History / Comment(s): cellulitis on lower back, migraine headaches History of Any Multi-Drug Resistant Organisms: MRSA Date of last positivie culture/infection: 08/10/19 MDRO Source:: ARM, lowr back Past Surgical History: No Surgical Hx Reported Additional Past Surgical History / Comment(s): I&D r uppre arm Past Anesthesia/Blood Transfusion Reactions: No Reported Reaction Past Psychological History: Bipolar, Schizophrenia Smoking Status: Current every day smoker Past Alcohol Use History: None Reported Past Drug Use History: Heroin, Marijuana, Methamphetamine - Past Family History Brother(s) Additional Family Medical History / Comment(s): MRSA, heart problems as a child General Exam Limitations: no limitations General appearance: alert, in no apparent distress, anxious Head exam: Present: atraumatic, normocephalic, normal inspection Eye exam: Present: normal appearance, PERRL, EOMI. Absent: scleral icterus, conjunctival injection, periorbital swelling ENT exam: Present: normal exam, mucous membranes moist Neck exam: Present: normal inspection. Absent: tenderness, meningismus, lymphadenopathy Respiratory exam: Present: normal lung sounds bilaterally. Absent: respiratory distress, wheezes, rales, rhonchi, stridor Cardiovascular Exam: Present: normal rhythm, tachycardia, normal heart sounds. Absent: systolic murmur, diastolic murmur, rubs, gallop, clicks GI/Abdominal exam: Present: soft, normal bowel sounds. Absent: distended, tenderness, guarding, rebound, rigid Extremities exam: Present: normal inspection, full ROM, normal capillary refill. Absent: tenderness, pedal edema, joint swelling, calf tenderness Back exam: Present: normal inspection Neurological exam: Present: alert, oriented X3, CN II-XII intact Psychiatric exam: Present: normal affect, normal mood Skin exam: Present: warm, dry, intact, normal color. Absent: rash Course Vital Signs 09/15/20 01:45 Temperature 98.1 F Pulse Rate 130 H Respiratory 18 Rate Blood Pressure 97/59 O2 Sat by Pulse 100 Oximetry - Reevaluation(s) Reevaluation #1: 09/15/20 03:00 Medical records reviewed Medical Decision Making - Medical Decision Making 25 female to the ED co needing psychiatric help, patient is safe for discharge, denying suicidal or homicidal ideation Disposition Clinical Impression: Acute psychosis, Drug-induced psychotic disorder, Psychiatric disorder Disposition: HOME SELF-CARE Condition: Fair Instructions (If sedation given, give patient instructions): Mood Disorders (ED) Is patient prescribed a controlled substance at d/c from ED?: No Referrals: None,Stated [Primary Care Provider] - 1-2 days
[2020-09-15 05:18] VITALS: BP 105/70; PULSE 105
== END 2020-09-15 05:32 | disposition home or self-care (01) ==
LOC: EC 01:38
DX: F19.959 Other psychoactive substance use, unspecified with psychoactive substance-induced psychotic disorder, unspecified (principal); F23 Brief psychotic disorder; F17.200 Nicotine dependence, unspecified, uncomplicated; Z91.040 Latex allergy status; Z86.14 Personal history of Methicillin resistant Staphylococcus aureus infection
CPT/HCPCS: 82075; 99285

== ENCOUNTER 2020-09-24 14:33 | Emergency (ER) | payer OTHER ==
[2020-09-24] MEDS ORDERED: LIDOCAINE 1%-EPI 1:100,000 20 ML VIAL SQ STA (14:51)
[2020-09-24] MEDS ORDERED: SODIUM CHLORIDE 0.9% 1,000 ML IV ONE (14:52)
[2020-09-24] MEDS ORDERED: CLINDAMYCIN 600 MG in DEXTROSE 5% IN WATER 50 ML IVPB PRN ×2 (14:52)
[2020-09-24] MEDS ORDERED: PIPERACILLIN-TAZOBACTAM 3.375 GM in SODIUM CHLORIDE 0.9% 100 ML IVPB STA (14:53)
[2020-09-24] MEDS ORDERED: SODIUM CHLORIDE 0.9% 1,000 ML IV SCH (15:00)
[2020-09-24 15:16] LABS: Basophils # (A) 0.1 k/uL (0-0.2); Basophils % (A) 1 %; Eosinophils # (A) 0.3 k/uL (0-0.7); Eosinophils % (A) 2 %; HCT 37.2 % (34.0-46.0); HGB 12.7 gm/dL (11.4-16.0); Lymphocytes % (A) 18 %; MCH 30.1 pg (25.0-35.0); MCHC 34.3 g/dL (31.0-37.0); MCV 87.8 fL (80.0-100.0); Mean Platelet Volume 7.2; Monocytes # (A) 0.7 k/uL (0-1.0); Monocytes % (A) 7 %; Neutrophils % (A) 71 %; Platelet Count 359 k/uL (150-450); RBC 4.24 m/uL (3.80-5.40); RDW 12.5 % (11.5-15.5); WBC 11.3 k/uL (3.8-10.6)
[2020-09-24 15:23] LABS: ALT 46 U/L (4-34); AST 31 U/L (14-36); African American GFR (CKD) >90 (>60 ml/min/1.73 sqM); Albumin 3.9 g/dL (3.5-5.0); Alkaline Phosphatase 77 U/L (38-126); Blood Urea Nitrogen 9 mg/dL (7-17); Carbon Dioxide 26 mmol/L (22-30); Chloride 107 mmol/L (98-107); Glucose 116 mg/dL (74-99); Non-African American GFR(CKD) >90 (>60 ml/min/1.73 sqM); Total Bilirubin 0.2 mg/dL (0.2-1.3); Total Protein 7.5 g/dL (6.3-8.2)
[2020-09-24 15:35] LABS: Anion Gap 5 mmol/L; Potassium 4.3 mmol/L (3.5-5.1); Sodium 138 mmol/L (137-145)
[2020-09-24 15:50] VITALS: BP 111/73; PULSE 91; RESP 19; TEMP 97.8
[2020-09-24] MEDS ORDERED: SULFAMETH-TMP DS STARTER PACK 2 TAB BTL PO STA (16:01)
[2020-09-24] MEDS ORDERED: CEPHALEXIN 500MG STARTER PACK 4 CAP BTL PO STA (16:01)
--- NOTE | 2020-09-24 16:01 | ED ---
Skin/Abscess/FB HPI - General Chief complaint: Skin/Abscess/Foreign Body Stated complaint: Right arm abscess Time Seen by Provider: 09/24/20 14:40 Source: patient Mode of arrival: ambulatory Limitations: no limitations - History of Present Illness Initial comments: 25yo female presented for chief complaint of right arm abscess. Patient states she has history of MRSA and she is currently an IV drug user she states she is 4 days ago and she is positive that there is no needle located in her arm. She states she frequently gets abscesses. She states is very red tender and this one is has increased. She denies fevers chills generalized. Patient denies night sweats she has no additional complaints when she could no longer tolerate the pain she presented to the ER today for further treatment patient is coming by her mother - Related Data Previous Rx's Medication Instructions Recorded Cephalexin [Keflex] 500 mg PO Q6HR 10 Days #40 cap 05/20/20 Erythromycin Ophth Oint [Romycin 1 applic RIGHT EYE BID 5 Days #1 05/20/20 Ophth Oint] tube Sulfamethox-Tmp 800-160Mg [Bactrim 1 each PO Q12HR 10 Days #20 tab 05/20/20 Ds] Cephalexin [Keflex] 500 mg PO Q6HR 10 Days #40 cap 09/24/20 Sulfamethox-Tmp 800-160Mg [Bactrim 1 tab PO Q12HR 10 Days #20 tab 09/24/20 DS 800-160 mg] Allergies Allergy/AdvReac Type Severity Reaction Status Date / Time latex Allergy Rash/Hives Verified 09/24/20 14:38 Review of Systems ROS Statement: Those systems with pertinent positive or pertinent negative responses have been documented in the HPI. ROS Other: All systems not noted in ROS Statement are negative. Past Medical History Past Medical History: No Reported History Additional Past Medical History / Comment(s): cellulitis on lower back, migraine headaches History of Any Multi-Drug Resistant Organisms: MRSA Date of last positivie culture/infection: 08/10/19 MDRO Source:: ARM, lowr back Past Surgical History: No Surgical Hx Reported Additional Past Surgical History / Comment(s): I&D rt upper arm Past Anesthesia/Blood Transfusion Reactions: No Reported Reaction Past Psychological History: Bipolar, Schizophrenia Smoking Status: Current every day smoker Past Alcohol Use History: None Reported Past Drug Use History: Heroin, Marijuana, Methamphetamine - Past Family History Brother(s) Additional Family Medical History / Comment(s): MRSA, heart problems as a child General Exam - General Exam Comments Initial Comments: General: The patient is awake and alert, in no distress Eye: Pupils are equal, round and reactive to light, extra-ocular movements are intact. No nystagmus. There is normal conjunctiva bilaterally. No signs of icterus. Ears, nose, mouth and throat: There are moist mucous membranes and no oral lesions. Neck: The neck is supple, there is no tenderness or JVD. Musculoskeletal: Normal ROM, no tenderness. Strength 5/5. Sensation intact. Pulses equal bilaterally 2+. Neurological: A&O x 3. CN II-XII intact grossly, There are no obvious motor or sensory deficits. Coordination appears grossly intact. Speech is normal. Skin: Skin is warm and dry and no rashes. large area of induration and fluctuation. induration is [id number], there actually areas 3 x 3 cm. no spontan eous drainage. Psychiatric: Cooperative, appropriate mood & affect, normal judgment. Limitations: no limitations Course Vital Signs 09/24/20 09/24/20 14:36 15:45 Temperature 99.0 F 97.8 F Pulse Rate 119 H 91 Respiratory 20 19 Rate Blood Pressure 124/84 111/73 O2 Sat by Pulse 99 99 Oximetry Procedures - Incision & Drainage Consent Obtained: verbal consent Indication: abscess Site: upper extremity Anesthetic Used: lidocaine 1%, with epi Amount (mLs): 1 I&D Cleaning Method: Iodine Sterile Field Used?: No Scalpel Used: #11 Needle Aspiration Performed?: Yes (blood) Irrigation Performed?: No I&D Drainage Obtained: Pus, Blood Culture Obtained?: Yes Complications: pain Patient Tolerated Procedure: well Medical Decision Making - Medical Decision Making 25o presenting for abscess. pt does not appears toxic but does appear uncomfort able. abscess drained significantly approximately 15cc. cultures pending. hx mrsa. pt given iv abx. will be discharged with keflex and bactrim. patient has mild leukocytosis, aferbile. she is agreeable to dsicahrge. refused xr to r/o foreign body stating it is impossible i discussed risk of retained foreign body and patient contrinued to refuse. Dr Williamson is agreeable to this care plan and discharge. - Lab Data Result diagrams: 09/24/20 15:08 09/24/20 15:08 Lab Results 09/24/20 09/24/20 09/24/20 Range/Units 15:08 15:08 15:08 WBC 11.3 H (3.8-10.6) k/uL RBC 4.24 (3.80-5.40) m/uL Hgb 12.7 (11.4-16.0) gm/dL Hct 37.2 (34.0-46.0) % MCV 87.8 (80.0-100.0) fL MCH 30.1 (25.0-35.0) pg MCHC 34.3 (31.0-37.0) g/dL RDW 12.5 (11.5-15.5) % Plt Count 359 (150-450) k/uL MPV 7.2 Neutrophils % 71 % Lymphocytes % 18 % Monocytes % 7 % Eosinophils % 2 % Basophils % 1 % Neutrophils # 8.0 H (1.3-7.7) k/uL Lymphocytes # 2.0 (1.0-4.8) k/uL Monocytes # 0.7 (0-1.0) k/uL Eosinophils # 0.3 (0-0.7) k/uL Basophils # 0.1 (0-0.2) k/uL Sodium 138 (137-145) mmol/L Potassium 4.3 (3.5-5.1) mmol/L Chloride 107 (98-107) mmol/L Carbon Dioxide 26 (22-30) mmol/L Anion Gap 5 mmol/L BUN 9 (7-17) mg/dL Creatinine 0.61 (0.52-1.04) mg/dL Est GFR (CKD-EPI)AfAm >90 (>60 ml/min/1.73 sqM) Est GFR (CKD-EPI)NonAf >90 (>60 ml/min/1.73 sqM) Glucose 116 H (74-99) mg/dL Plasma Lactic Acid Tyler 1.2 (0.7-2.0) mmol/L Calcium 9.0 (8.4-10.2) mg/dL Total Bilirubin 0.2 (0.2-1.3) mg/dL AST 31 (14-36) U/L ALT 46 H (4-34) U/L Alkaline Phosphatase 77 (38-126) U/L Total Protein 7.5 (6.3-8.2) g/dL Albumin 3.9 (3.5-5.0) g/dL Disposition Clinical Impression: Abscess of right arm Disposition: HOME SELF-CARE Condition: Good Instructions (If sedation given, give patient instructions): Abscess (ED), Abscess Incision and Drainage (DC) Additional Instructions: Please use medication as discussed. Please follow-up with family doctor in the next 2 days. Please return to emergency room if the symptoms increase or worsen or for any other concerns. Prescriptions: Sulfamethox-Tmp 800-160Mg [Bactrim DS 800-160 mg] 1 tab PO Q12HR 10 Days #20 tab Cephalexin [Keflex] 500 mg PO Q6HR 10 Days #40 cap Is patient prescribed a controlled substance at d/c from ED?: No Referrals: None,Stated [Primary Care Provider] - 1-2 days [facility] [employer] [employer] [[facility]] - 1-2 days Time of Disposition: 16:00
== END 2020-09-24 16:25 | disposition home or self-care (01) ==
LOC: EC 14:33
DX: L02.413 Cutaneous abscess of right upper limb (principal); F17.200 Nicotine dependence, unspecified, uncomplicated; Z91.040 Latex allergy status; Z86.14 Personal history of Methicillin resistant Staphylococcus aureus infection
CPT/HCPCS: 36415; 80053; 83605; 85025; 87070; 87205; 87077; 87186; 99283; 96365; 10060; J2543

== ENCOUNTER 2021-01-01 22:37 | Emergency (ER) | payer OTHER ==
[2021-01-01 22:44] VITALS: TEMP 98.1
[2021-01-01] MEDS ORDERED: CEPHALEXIN 500MG STARTER PACK 4 CAP BTL PO STA (22:57)
[2021-01-01] MEDS ORDERED: LIDOCAINE 1%-EPI 1:100,000 20 ML VIAL SQ STA (22:57)
[2021-01-01] MEDS ORDERED: SULFAMETH-TMP DS STARTER PACK 2 TAB BTL PO STA (22:57)
--- NOTE | 2021-01-01 23:14 | ED ---
Skin/Abscess/FB HPI - General Chief complaint: Skin/Abscess/Foreign Body Stated complaint: LT arm abscess Time Seen by Provider: 01/01/21 22:48 Source: patient Mode of arrival: ambulatory Limitations: no limitations - History of Present Illness Initial comments: 25-year-old female with history of substance abuse presents emergency Department with a chief complaint of an abscess. Patient reports history of these typically at the injection sites. States the last time she injected was 3 days ago and has since began to develop surrounding erythema. She denies history of MRSA. Denies any fevers or chills. Denies taking medications to alleviate the symptoms. States the erythema has been gradually increasing in size and it is also warm to touch. - Related Data Previous Rx's Medication Instructions Recorded Cephalexin [Keflex] 500 mg PO Q6HR #40 cap 01/01/21 Sulfamethox-Tmp 800-160Mg [Bactrim 1 each PO Q12HR #20 tab 01/01/21 Ds] Allergies Allergy/AdvReac Type Severity Reaction Status Date / Time latex Allergy Rash/Hives Verified 01/01/21 22:43 Review of Systems ROS Statement: Those systems with pertinent positive or pertinent negative responses have been documented in the HPI. ROS Other: All systems not noted in ROS Statement are negative. Past Medical History Past Medical History: No Reported History Additional Past Medical History / Comment(s): cellulitis on lower back, migraine headaches, History of Any Multi-Drug Resistant Organisms: MRSA Date of last positivie culture/infection: 09/24/20 MDRO Source:: Right Arm Past Surgical History: No Surgical Hx Reported Additional Past Surgical History / Comment(s): I&D rt upper arm, Past Anesthesia/Blood Transfusion Reactions: No Reported Reaction Past Psychological History: Bipolar, Schizophrenia Smoking Status: Current every day smoker Past Alcohol Use History: None Reported Past Drug Use History: Heroin, IV Drug Use, Marijuana, Methamphetamine - Past Family History Brother(s) Additional Family Medical History / Comment(s): MRSA, heart problems as a child General Exam Limitations: no limitations General appearance: alert, in no apparent distress Head exam: Present: atraumatic, normocephalic, normal inspection Eye exam: Present: normal appearance, PERRL, EOMI Pupils: Present: normal accommodation ENT exam: Present: normal exam, normal oropharynx, mucous membranes moist, TM's normal bilaterally, normal external ear exam Neck exam: Present: normal inspection, full ROM. Absent: tenderness Respiratory exam: Present: normal lung sounds bilaterally. Absent: respiratory distress, wheezes, rales Cardiovascular Exam: Present: regular rate, normal rhythm, normal heart sounds Extremities exam: Present: full ROM, tenderness, normal capillary refill. Absent: normal inspection (Small abscess measuring approximately 1.5 cm in diameter on the anterior aspect of the left forearm with surrounding cellulitic skin changes moving proximally towards the left upper extremity. Tender and warm to touch.), pedal edema, joint swelling, calf tenderness Back exam: Present: normal inspection, full ROM. Absent: tenderness, CVA tenderness (R), CVA tenderness (L) Neurological exam: Present: alert, oriented X3 Psychiatric exam: Present: normal affect, normal mood Skin exam: Present: warm, dry, intact, normal color Course Vital Signs 01/01/21 22:39 Temperature 98.1 F Pulse Rate 111 H Respiratory 17 Rate Blood Pressure 120/77 O2 Sat by Pulse 100 Oximetry Procedures - Incision & Drainage Consent Obtained: verbal consent Indication: Abscess Site: upper extremity Size (cm): 2 Anesthetic Used: lidocaine 1%, with epi Amount (mLs): 1 I&D Cleaning Method: Alcohol Wipe Sterile Field Used?: No Scalpel Used: #11 Needle Aspiration Performed?: No Irrigation Performed?: No I&D Drainage Obtained: Pus, Blood Culture Obtained?: No Complications: pain, bleeding Patient Tolerated Procedure: well, no complications Medical Decision Making - Medical Decision Making 25-year-old feel presents emergency Department with a chief complaint of an abscess. Incision and drainage performed. She does have overlying cellulitic skin changes suggesting cellulitis. I will cover both Bactrim and Keflex. Warm compresses suggested. Advised to return to emergency department if symptoms worsen. Case discussed with Disposition Clinical Impression: Cellulitis and abscess of upper arm and forearm Disposition: HOME SELF-CARE Condition: Stable Instructions (If sedation given, give patient instructions): Abscess (ED), Abscess Incision and Drainage (DC) Additional Instructions: Please return to the Emergency Department if symptoms worsen or any other concerns. Prescriptions: Sulfamethox-Tmp 800-160Mg [Bactrim Ds] 1 each PO Q12HR #20 tab Cephalexin [Keflex] 500 mg PO Q6HR #40 cap Is patient prescribed a controlled substance at d/c from ED?: No Referrals: None,Stated [Primary Care Provider] - 1-2 days Time of Disposition: 23:41
[2021-01-02 00:06] VITALS: BP 118/71; PULSE 71; RESP 16
== END 2021-01-01 23:55 | disposition home or self-care (01) ==
LOC: EC 22:37
DX: L02.414 Cutaneous abscess of left upper limb (principal); L03.114 Cellulitis of left upper limb; F17.200 Nicotine dependence, unspecified, uncomplicated; Z91.040 Latex allergy status
CPT/HCPCS: 10060; 99283

== ENCOUNTER 2021-01-10 02:43 | Emergency (ER) | payer OTHER ==
[2021-01-10 02:48] VITALS: BP 111/74; PULSE 101; RESP 18; TEMP 98
--- NOTE | 2021-01-10 02:54 | ED ---
Skin/Abscess/FB HPI - General Chief complaint: Skin/Abscess/Foreign Body Stated complaint: Arm Abscess Time Seen by Provider: 01/10/21 02:48 Source: patient, RN notes reviewed, old records reviewed Mode of arrival: ambulatory Limitations: no limitations - History of Present Illness MD complaint: rash, abscess/boil -: days(s) Tetanus Up to Date: yes Location: LUE Severity: mild Severity scale (1-10): 1 Quality: aching Consistency: constant Improves with: none Worsens with: none Context: IVDA Associated symptoms: denies other symptoms Treatments Prior to Arrival: none - Related Data Previous Rx's Medication Instructions Recorded Cephalexin [Keflex] 500 mg PO Q6HR #40 cap 01/01/21 Sulfamethox-Tmp 800-160Mg [Bactrim 1 each PO Q12HR #20 tab 01/01/21 Ds] Sulfamethox-Tmp 800-160Mg [Bactrim 2 tab PO Q12HR #40 tab 01/10/21 DS 800-160 mg] Allergies Allergy/AdvReac Type Severity Reaction Status Date / Time latex Allergy Rash/Hives Verified 01/10/21 02:48 Review of Systems ROS Statement: Those systems with pertinent positive or pertinent negative responses have been documented in the HPI. ROS Other: All systems not noted in ROS Statement are negative. Past Medical History Past Medical History: No Reported History Additional Past Medical History / Comment(s): cellulitis on lower back, migraine headaches, History of Any Multi-Drug Resistant Organisms: MRSA Date of last positivie culture/infection: 09/24/20 MDRO Source:: Right Arm Past Surgical History: No Surgical Hx Reported Additional Past Surgical History / Comment(s): I&D rt upper arm, Past Anesthesia/Blood Transfusion Reactions: No Reported Reaction Past Psychological History: Bipolar, Schizophrenia Smoking Status: Current every day smoker Past Alcohol Use History: None Reported Past Drug Use History: Heroin, IV Drug Use, Marijuana, Methamphetamine - Past Family History Brother(s) Additional Family Medical History / Comment(s): MRSA, heart problems as a child General Exam Limitations: no limitations General appearance: alert, in no apparent distress Head exam: Present: atraumatic, normocephalic, normal inspection Eye exam: Present: normal appearance, PERRL, EOMI. Absent: scleral icterus, conjunctival injection, periorbital swelling ENT exam: Present: normal exam, mucous membranes moist Neck exam: Present: normal inspection. Absent: tenderness, meningismus, lymphadenopathy Respiratory exam: Present: normal lung sounds bilaterally. Absent: respiratory distress, wheezes, rales, rhonchi, stridor Cardiovascular Exam: Present: regular rate, normal rhythm, normal heart sounds. Absent: systolic murmur, diastolic murmur, rubs, gallop, clicks GI/Abdominal exam: Present: soft, normal bowel sounds. Absent: distended, tenderness, guarding, rebound, rigid Extremities exam: Present: normal inspection, full ROM, normal capillary refill. Absent: tenderness, pedal edema, joint swelling, calf tenderness Back exam: Present: normal inspection Neurological exam: Present: alert, oriented X3, CN II-XII intact Psychiatric exam: Present: normal affect, normal mood Skin exam: Present: warm, dry, intact, normal color. Absent: rash Course Vital Signs 01/10/21 02:43 Temperature 98 F Pulse Rate 101 H Respiratory 18 Rate Blood Pressure 111/74 O2 Sat by Pulse 98 Oximetry Disposition Clinical Impression: Cellulitis and abscess of upper arm and forearm, Cellulitis of left forearm, IV drug abuse Disposition: HOME SELF-CARE Condition: Good Instructions (If sedation given, give patient instructions): Cellulitis (ED) Prescriptions: Sulfamethox-Tmp 800-160Mg [Bactrim DS 800-160 mg] 2 tab PO Q12HR #40 tab Is patient prescribed a controlled substance at d/c from ED?: No Referrals: None,Stated [Primary Care Provider] - 1-2 days
[2021-01-10] MEDS ORDERED: SULFAMETHOX-TMP 800-160MG 1 EACH TAB PO STA (02:57)
[2021-01-10] MEDS ORDERED: SULFAMETH-TMP DS STARTER PACK 2 TAB BTL PO STA (02:57)
== END 2021-01-10 03:25 | disposition home or self-care (01) ==
LOC: EC 02:43
DX: L03.114 Cellulitis of left upper limb (principal); L02.414 Cutaneous abscess of left upper limb; F19.10 Other psychoactive substance abuse, uncomplicated; F15.90 Other stimulant use, unspecified, uncomplicated; F12.90 Cannabis use, unspecified, uncomplicated; F17.200 Nicotine dependence, unspecified, uncomplicated
CPT/HCPCS: 99282

== ENCOUNTER 2021-01-14 06:02 | Emergency (ER) | payer OTHER ==
[2021-01-14 06:05] VITALS: BP 124/70; PULSE 109; RESP 14; TEMP 97.7
[2021-01-14] MEDS ORDERED: LIDOCAINE 1% INJ 10MG/ML (20 ML MDV) SQ ONE (06:19)
--- NOTE | 2021-01-14 06:22 | ED ---
Skin/Abscess/FB HPI - General Chief complaint: Skin/Abscess/Foreign Body Stated complaint: abscess-revisit Time Seen by Provider: 01/14/21 06:08 Source: patient, RN notes reviewed Mode of arrival: ambulatory Limitations: no limitations - History of Present Illness Initial comments: 25-year-old female presents emergency from chief complaint lapse sister left forearm. Patient states she's been seen here twice with an antibiotic states that she was present back if it started draining. She states that she has, drainage, states that it seemed to come to the surface more. She reports no fevers or chills no other complaints. - Related Data Previous Rx's Medication Instructions Recorded Cephalexin [Keflex] 500 mg PO Q6HR #40 cap 01/01/21 Sulfamethox-Tmp 800-160Mg [Bactrim 1 each PO Q12HR #20 tab 01/01/21 Ds] Sulfamethox-Tmp 800-160Mg [Bactrim 2 tab PO Q12HR #40 tab 01/10/21 DS 800-160 mg] Allergies Allergy/AdvReac Type Severity Reaction Status Date / Time latex Allergy Rash/Hives Verified 01/14/21 06:05 Review of Systems ROS Statement: Those systems with pertinent positive or pertinent negative responses have been documented in the HPI. ROS Other: All systems not noted in ROS Statement are negative. Past Medical History Past Medical History: No Reported History Additional Past Medical History / Comment(s): cellulitis on lower back, migraine headaches, History of Any Multi-Drug Resistant Organisms: MRSA Date of last positivie culture/infection: 09/24/20 MDRO Source:: Right Arm Past Surgical History: No Surgical Hx Reported Additional Past Surgical History / Comment(s): I&D rt upper arm, Past Anesthesia/Blood Transfusion Reactions: No Reported Reaction Past Psychological History: Bipolar, Schizophrenia Smoking Status: Current every day smoker Past Alcohol Use History: None Reported Past Drug Use History: Heroin, IV Drug Use, Marijuana, Methamphetamine - Past Family History Brother(s) Additional Family Medical History / Comment(s): MRSA, heart problems as a child General Exam Limitations: no limitations General appearance: alert, in no apparent distress Head exam: Present: atraumatic, normocephalic, normal inspection Eye exam: Present: normal appearance, PERRL, EOMI. Absent: scleral icterus, conjunctival injection, periorbital swelling Respiratory exam: Present: normal lung sounds bilaterally. Absent: respiratory distress, wheezes, rales, rhonchi, stridor Cardiovascular Exam: Present: regular rate, normal rhythm, normal heart sounds. Absent: systolic murmur, diastolic murmur, rubs, gallop, clicks Extremities exam: Present: other (Left forearm there is approximate 2 cm abscess mildly fluctuant mild erythema) Course Vital Signs 01/14/21 06:02 Temperature 97.7 F Pulse Rate 109 H Respiratory 14 Rate Blood Pressure 124/70 O2 Sat by Pulse 100 Oximetry Procedures - Incision & Drainage Consent Obtained: written consent Site: upper extremity (Left forearm) Size (cm): 2 Anesthetic Used: lidocaine 1%, without epi Amount (mLs): 5 I&D Cleaning Method: Alcohol Wipe Sterile Field Used?: No Scalpel Used: #11 I&D Drainage Obtained: Pus, Blood Culture Obtained?: No Patient Tolerated Procedure: well, no complications Medical Decision Making - Medical Decision Making I&D was performed. Patient will continue antibiotics warm compresses. Patient was discharged in stable condition. Disposition Clinical Impression: Abscess of left forearm Disposition: HOME SELF-CARE Condition: Stable Instructions (If sedation given, give patient instructions): Abscess Incision and Drainage (ED) Additional Instructions: Please return to the Emergency Department if symptoms worsen or any other concerns. Continue antibiotics as directed. Is patient prescribed a controlled substance at d/c from ED?: No Referrals: None,Stated [Primary Care Provider] - 1-2 days Time of Disposition: 06:21
== END 2021-01-14 06:37 | disposition home or self-care (01) ==
LOC: EC 06:02
DX: L02.414 Cutaneous abscess of left upper limb (principal); F31.9 Bipolar disorder, unspecified; F20.9 Schizophrenia, unspecified; F17.200 Nicotine dependence, unspecified, uncomplicated
CPT/HCPCS: 99283; 10060; 96372; J2001

== ENCOUNTER 2021-02-24 20:56 | Emergency (ER) | payer OTHER ==
[2021-02-24] MEDS ORDERED: ACETAMINOPHEN TAB 325 MG TAB PO STA (21:27)
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
[2021-02-24 22:33] VITALS: BP 113/68; PULSE 62; RESP 17; TEMP 97.6
== END 2021-02-24 22:45 | disposition home or self-care (01) ==
LOC: EC 20:56
DX: F55.8 Abuse of other non-psychoactive substances (principal); S80.211A Abrasion, right knee, initial encounter; F17.200 Nicotine dependence, unspecified, uncomplicated; F20.9 Schizophrenia, unspecified; F31.9 Bipolar disorder, unspecified; F12.90 Cannabis use, unspecified, uncomplicated; W19.XXXA Unspecified fall, initial encounter
CPT/HCPCS: 99284

== ENCOUNTER 2021-04-26 21:56 | Emergency (ER) | payer OTHER ==
[2021-04-26 22:18] VITALS: BP 116/73; PULSE 117; RESP 18; TEMP 98.8
[2021-04-26] MEDS ORDERED: SULFAMETH-TMP DS STARTER PACK 2 TAB BTL PO STA (23:24)
[2021-04-26] MEDS ORDERED: CEPHALEXIN 500MG STARTER PACK 4 CAP BTL PO STA (23:24)
--- NOTE | 2021-04-26 23:39 | ED ---
Skin/Abscess/FB HPI - General Chief complaint: Skin/Abscess/Foreign Body Stated complaint: Abscess R Arm Time Seen by Provider: 04/26/21 23:07 Source: patient Mode of arrival: ambulatory - History of Present Illness Initial comments: 26-year-old female presents emergency Department with a chief complaint of an abscess. Patient is an IV drug user states she injected there about 2 days ago. Patient reports the abscess is located on the right forearm. States it is feels erythematous, tender and fluctuant but no discharge. Patient reports she injects heroin and meth amphetamine. She denies any fevers or chills at home. She denies any chest pain or shortness of breath at this time. States she has been evaluated here previously for the same abscess near the injection site. She has history of MRSA. - Related Data Previous Rx's Medication Instructions Recorded Cephalexin [Keflex] 500 mg PO Q6HR #40 cap 04/26/21 Sulfamethox-Tmp 800-160Mg [Bactrim 1 each PO Q12HR #20 tab 04/26/21 Ds] Allergies Allergy/AdvReac Type Severity Reaction Status Date / Time latex Allergy Rash/Hives Verified 04/26/21 22:18 Review of Systems ROS Statement: Those systems with pertinent positive or pertinent negative responses have been documented in the HPI. ROS Other: All systems not noted in ROS Statement are negative. Past Medical History Past Medical History: No Reported History Additional Past Medical History / Comment(s): cellulitis on lower back, migraine headaches, History of Any Multi-Drug Resistant Organisms: MRSA Date of last positivie culture/infection: 09/24/20 MDRO Source:: Right Arm Past Surgical History: No Surgical Hx Reported Additional Past Surgical History / Comment(s): I&D rt upper arm, Past Anesthesia/Blood Transfusion Reactions: No Reported Reaction Past Psychological History: Bipolar, Schizophrenia Smoking Status: Current every day smoker Past Alcohol Use History: None Reported Past Drug Use History: Heroin, IV Drug Use, Marijuana, Methamphetamine - Past Family History Brother(s) Additional Family Medical History / Comment(s): MRSA, heart problems as a child General Exam Limitations: no limitations General appearance: alert, in no apparent distress Head exam: Present: atraumatic, normocephalic, normal inspection Eye exam: Present: normal appearance Pupils: Present: normal accommodation ENT exam: Present: normal exam, normal oropharynx, mucous membranes moist Neck exam: Present: normal inspection, full ROM. Absent: tenderness, lymphadenopathy Respiratory exam: Present: normal lung sounds bilaterally. Absent: respiratory distress, wheezes, rales Cardiovascular Exam: Present: regular rate, normal rhythm, normal heart sounds. Absent: systolic murmur Extremities exam: Present: full ROM, tenderness (Note that the abscess site), normal capillary refill. Absent: normal inspection (Abscess noted on the right forearm), pedal edema, joint swelling Back exam: Present: normal inspection, full ROM. Absent: tenderness Neurological exam: Present: alert, oriented X3 Psychiatric exam: Present: normal affect, normal mood Skin exam: Present: warm, dry, intact, normal color Course Vital Signs 04/26/21 22:14 Temperature 98.8 F Pulse Rate 117 H Respiratory 18 Rate Blood Pressure 116/73 O2 Sat by Pulse 100 Oximetry Procedures - Incision & Drainage Consent Obtained: verbal consent Indication: Abscess Site: upper extremity Size (cm): 3 Anesthetic Used: lidocaine 1%, with epi Amount (mLs): 3 I&D Cleaning Method: Alcohol Wipe Sterile Field Used?: No Scalpel Used: #11 Needle Aspiration Performed?: No Irrigation Performed?: No I&D Drainage Obtained: Pus, Blood Culture Obtained?: No Complications: pain, bleeding Patient Tolerated Procedure: well, no complications Medical Decision Making - Medical Decision Making 18-year-old female presents to emergency Department with chief complaint of an abscess. She is afebrile here. Incision and drainage performed of the abscess with mostly bloody discharge. Minimal pustular discharge. Patient advised to continue applying warm, versus. There is cellulitis associated with the abscess. Patient will be started on Bactrim and Keflex. She does have history of MRSA. Return parameters were discussed patient is an attending agreeable. Case discussed with physician. Disposition Clinical Impression: Abscess Disposition: HOME SELF-CARE Condition: Stable Instructions (If sedation given, give patient instructions): Abscess (ED), Abscess Incision and Drainage (DC) Additional Instructions: Please return to the Emergency Department if symptoms worsen or any other concerns. Prescriptions: Sulfamethox-Tmp 800-160Mg [Bactrim Ds] 1 each PO Q12HR #20 tab Cephalexin [Keflex] 500 mg PO Q6HR #40 cap Is patient prescribed a controlled substance at d/c from ED?: No Referrals: None,Stated [Primary Care Provider] - 1-2 days Time of Disposition: 23:39
[2021-04-26] MEDS ORDERED: LIDOCAINE 1%-EPI 1:100,000 20 ML VIAL SQ ONE (23:42)
== END 2021-04-26 23:47 | disposition home or self-care (01) ==
LOC: EC 21:56
DX: L02.413 Cutaneous abscess of right upper limb (principal); F17.200 Nicotine dependence, unspecified, uncomplicated; F12.90 Cannabis use, unspecified, uncomplicated; F15.90 Other stimulant use, unspecified, uncomplicated; F11.90 Opioid use, unspecified, uncomplicated
CPT/HCPCS: 10060; 99283

== ENCOUNTER 2021-04-28 03:41 | Emergency (ER) | payer OTHER ==
[2021-04-28 04:09] VITALS: RESP 18
[2021-04-28] MEDS ORDERED: SODIUM CHLORIDE 0.9% 500 ML 500 ML IV STA (04:14)
[2021-04-28] MEDS ORDERED: LORazepam 2 MG/ML INJ IV STA (04:14)
[2021-04-28] MEDS ORDERED: SODIUM CHLORIDE 0.9% 1,000 ML IV STA (04:14)
[2021-04-28] MEDS ORDERED: VANCOMYCIN IV PER PHARMACY 1 EACH MISC MISCELLANE PRN (04:14)
[2021-04-28] MEDS ORDERED: KETOROLAC 15 MG/ML 1 ML VIAL IVP STA (04:14)
[2021-04-28] MEDS ORDERED: MORPHINE SULFATE 4 MG/ML SYRINGE IV STA (04:14)
--- NOTE | 2021-04-28 04:16 | ED ---
Skin/Abscess/FB HPI - General Chief complaint: Skin/Abscess/Foreign Body Stated complaint: Abscess Time Seen by Provider: 04/28/21 03:46 Source: patient, RN notes reviewed, old records reviewed Mode of arrival: ambulatory Limitations: no limitations - History of Present Illness Initial comments: This is a 26-year-old female to the ER today for evaluation no history of IV drug abuse. Patient Dese for evaluation of significant abscess of right upper extremity. Patient does have significant pain in that right upper extremity with swelling. No other complaints no fevers. MD complaint: abscess/boil -: days(s) Tetanus Up to Date: unsure Location: RUE Severity: moderate Severity scale (1-10): 7 Quality: aching Consistency: constant Improves with: none Worsens with: palpation, movement Context: IVDA Associated symptoms: fever, chills Treatments Prior to Arrival: none - Related Data Previous Rx's Medication Instructions Recorded Cephalexin [Keflex] 500 mg PO Q6HR #40 cap 04/26/21 Sulfamethox-Tmp 800-160Mg [Bactrim 1 each PO Q12HR #20 tab 04/26/21 Ds] Sulfamethox-Tmp 800-160Mg [Bactrim 1 tab PO Q12HR #20 tab 04/28/21 DS 800-160 mg] Allergies Allergy/AdvReac Type Severity Reaction Status Date / Time latex Allergy Rash/Hives Verified 04/26/21 22:18 Review of Systems ROS Statement: Those systems with pertinent positive or pertinent negative responses have been documented in the HPI. ROS Other: All systems not noted in ROS Statement are negative. Past Medical History Past Medical History: No Reported History Additional Past Medical History / Comment(s): cellulitis on lower back, migraine headaches, History of Any Multi-Drug Resistant Organisms: MRSA Date of last positivie culture/infection: 09/24/20 MDRO Source:: Right Arm Past Surgical History: No Surgical Hx Reported Additional Past Surgical History / Comment(s): I&D rt upper arm, Past Anesthesia/Blood Transfusion Reactions: No Reported Reaction Past Psychological History: Anxiety, Bipolar, Schizophrenia Smoking Status: Current every day smoker Past Alcohol Use History: Occasional Past Drug Use History: Heroin, IV Drug Use, Marijuana, Methamphetamine - Past Family History Brother(s) Additional Family Medical History / Comment(s): MRSA, heart problems as a child General Exam Limitations: no limitations General appearance: alert, in no apparent distress, anxious Head exam: Present: atraumatic, normocephalic, normal inspection Eye exam: Present: normal appearance, PERRL, EOMI. Absent: scleral icterus, conjunctival injection, periorbital swelling ENT exam: Present: normal exam, mucous membranes moist Neck exam: Present: normal inspection. Absent: tenderness, meningismus, lymphadenopathy Respiratory exam: Present: normal lung sounds bilaterally. Absent: respiratory distress, wheezes, rales, rhonchi, stridor Cardiovascular Exam: Present: normal rhythm, tachycardia, normal heart sounds. Absent: systolic murmur, diastolic murmur, rubs, gallop, clicks GI/Abdominal exam: Present: soft, normal bowel sounds. Absent: distended, tenderness, guarding, rebound, rigid Extremities exam: Present: normal inspection, full ROM, normal capillary refill, other (Right Forearm abscess, 10cm diameter). Absent: tenderness, pedal edema, joint swelling, calf tenderness Back exam: Present: normal inspection Neurological exam: Present: alert, oriented X3, CN II-XII intact Psychiatric exam: Present: normal affect, normal mood Skin exam: Present: warm, dry, intact, normal color. Absent: rash Course Vital Signs 04/28/21 04/28/21 04:01 05:30 Temperature 99.5 F 98.3 F Pulse Rate 131 H 110 H Respiratory 18 18 Rate Blood Pressure 128/82 120/76 O2 Sat by Pulse 99 100 Oximetry - Reevaluation(s) Reevaluation #1: 04/28/21 Medical record is reviewed Patient symptoms are significantly improved here in the ER Patient is informed and results and questions answered Patient is in no acute distress Procedures - Incision & Drainage Consent Obtained: verbal consent Anesthetic Used: lidocaine 1%, with epi I&D Cleaning Method: Chloroprep, Betadine Scalpel Used: #11 Needle Aspiration Performed?: No Irrigation Performed?: No I&D Drainage Obtained: Pus, Blood Culture Obtained?: No Patient Tolerated Procedure: well Medical Decision Making - Medical Decision Making 26 female to the ER today for evaluation of right upper extremity abscess. Patient refusing admission for this abscess, patient prefers to attempt I&D ID is done in the ER with significant. Drainage. Bandage and wrapped and patient can be discharged home on antibiotics Disposition Clinical Impression: Abscess, Tachycardia, Abscess of right upper extremity Disposition: HOME SELF-CARE Condition: Fair Prescriptions: Sulfamethox-Tmp 800-160Mg [Bactrim DS 800-160 mg] 1 tab PO Q12HR #20 tab Is patient prescribed a controlled substance at d/c from ED?: No Referrals: None,Stated [Primary Care Provider] - 1-2 days
[2021-04-28] MEDS ORDERED: LIDOCAINE 2%-EPI 1:100,000 20 ML VIAL SQ STA ×3 (04:22→04:50)
[2021-04-28] MEDS ORDERED: VANCOMYCIN 1,250 MG in SODIUM CHLORIDE 0.9% 250 ML IVPB ONE (04:30)
[2021-04-28] MEDS ORDERED: LIDOCAINE 1%-EPI 1:100,000 20 ML VIAL SQ STA (04:50)
[2021-04-28] MEDS ORDERED: LIDOCAINE 2%-EPI 1:100,000 20 ML VIAL SQ ONE (04:50)
[2021-04-28] MEDS ORDERED: SULFAMETHOX-TMP 800-160MG 1 EACH TAB PO STA (05:11)
[2021-04-28 05:53] VITALS: BP 120/76; PULSE 110; TEMP 98.3
== END 2021-04-28 05:30 | disposition home or self-care (01) ==
LOC: EC 03:41
DX: L02.413 Cutaneous abscess of right upper limb (principal); R00.0 Tachycardia, unspecified; F17.200 Nicotine dependence, unspecified, uncomplicated; F15.90 Other stimulant use, unspecified, uncomplicated; F11.90 Opioid use, unspecified, uncomplicated
CPT/HCPCS: 10060; 99283

== ENCOUNTER 2025-02-23 13:40 | Emergency (ER) | payer BC, OTHER ==
[2025-02-23 13:45] VITALS: RESP 18; TEMP 97.9
--- NOTE | 2025-02-23 14:08 | ED ---
Skin/Abscess/FB HPI - General Chief complaint: Skin/Abscess/Foreign Body Stated complaint: Boil on tailbone Time Seen by Provider: 02/23/25 13:46 Source: patient, RN notes reviewed Mode of arrival: ambulatory Limitations: no limitations - History of Present Illness Initial comments: This is a 29-year-old female who presents to the emergency department for an abscess on her buttocks. States that she first noticed this 2 days ago. She has not noticed any drainage from this. Denies any fevers or chills. This is starting to get very painful. She is an IV drug user and has had multiple abscesses, however they are usually on her extremities where she injects. She has not injected anything into the buttocks area. MD complaint: abscess/boil - Related Data Previous Rx's Medication Instructions Recorded Cephalexin [Keflex] 500 mg PO Q6HR #40 cap 04/26/21 Sulfamethox-Tmp 800-160Mg [Bactrim 1 each PO Q12HR #20 tab 04/26/21 Ds] Sulfamethox-Tmp 800-160Mg [Bactrim 1 tab PO Q12HR #20 tab 04/28/21 DS 800-160 mg] Amoxic-Pot Clav 875-125Mg 1 tab PO Q12HR 10 Days #20 tab 02/23/25 [Augmentin 875-125] Ibuprofen [Motrin] 800 mg PO Q8H PRN #30 tab 02/23/25 Sulfamethox-Tmp 800-160Mg [Bactrim 1 tab PO Q12HR 10 Days #20 tab 02/23/25 DS 800-160 mg] Allergies Allergy/AdvReac Type Severity Reaction Status Date / Time latex Allergy Rash/Hives Verified 02/23/25 13:45 Review of Systems ROS Statement: Those systems with pertinent positive or pertinent negative responses have been documented in the HPI. ROS Other: All systems not noted in ROS Statement are negative. Past Medical History Past Medical History: No Reported History Additional Past Medical History / Comment(s): cellulitis on lower back, migraine headaches, History of Any Multi-Drug Resistant Organisms: MRSA Date of last positivie culture/infection: 09/24/20 MDRO Source:: Right Arm Past Surgical History: No Surgical Hx Reported Additional Past Surgical History / Comment(s): I&D rt upper arm, Past Anesthesia/Blood Transfusion Reactions: No Reported Reaction Past Psychological History: Anxiety, Bipolar, Schizophrenia Smoking Status: Current every day smoker Past Alcohol Use History: Occasional Past Drug Use History: Heroin, IV Drug Use, Marijuana, Methamphetamine - Past Family History Brother(s) Additional Family Medical History / Comment(s): MRSA, heart problems as a child General Exam Limitations: no limitations General appearance: alert, in no apparent distress Head exam: Present: atraumatic, normocephalic, normal inspection Respiratory exam: Present: normal lung sounds bilaterally. Absent: respiratory distress, wheezes, rales, rhonchi, stridor Cardiovascular Exam: Present: regular rate, normal rhythm Rectal exam: Present: other (Large abscess to the superior left side of the gluteal cleft with surrounding erythema, induration, and warmth.) Neurological exam: Present: alert, oriented X3, CN II-XII intact Psychiatric exam: Present: normal affect, normal mood Skin exam: Present: warm, dry, intact, normal color. Absent: rash Course Vital Signs 02/23/25 02/23/25 02/23/25 13:42 14:27 16:09 Temperature 97.9 F Pulse Rate 96 115 H 92 Respiratory 18 18 18 Rate Blood Pressure 93/70 98/67 114/73 O2 Sat by Pulse 97 96 96 Oximetry Medical Decision Making - Medical Decision Making This is a 29-year-old female who presents to the emergency department for a rectal abscess. Was pt. sent in by a medical professional or institution? @ -No Did you speak to anyone other than the patient for history? @ -No Did you review nursing and triage notes? @ -Yes, and I agree, it is accurate with regards to the patient's symptoms. Were old charts reviewed? @ -No Differential Diagnosis? @ -Rectal abscess, pilonidal cyst, cellulitis, phlegmon, this is not meant to be an all-inclusive list. EKG interpreted by me (3pts min.)? @ -Not obtained X-rays interpreted by me (1pt min.)? @ -Not obtained CT interpreted by me (1pt min.)? @ -CT scan of the abdomen and pelvis obtained. My interpretation identifies a gluteal cleft abscess. U/S interpreted by me (1pt. min.)? @ -Not obtained What testing was considered but not performed? (CT, X-rays, U/S, labs)? Why? @ -None What meds were considered but not given? Why? @ -None Did you discuss the management of the patient with other professionals? @ -No Did you reconcile home meds? @ -No Was smoking cessation discussed for >3mins.? @ -I discussed smoking cessation for greater than 3 minutes. The risk of smoking were discussed with the patient including but not limited to risks of cancer, stroke, coronary artery disease and COPD. Also discussed with patient were multiple methods of quitting smoking. Lastly we discussed the financial cost of smoking. Was critical care preformed (if so, how long)? @ -No Were there social determinants of health that impacted care today? How? (Homelessness, low income, unemployed, alcoholism, drug addiction, transportation, low edu. Level, literacy, decrease access to med. care, skilled nursing, rehab)? @ -Drug addiction, increasing her risk for infection Was there de-escalation of care discussed even if they declined? (Discuss DNR or withdrawal of care, Hospice)? @ -No What co-morbidities impacted this encounter? (DM, HTN, Smoking, COPD, CAD, Cancer, CVA, Hep., AIDS, mental health diagnosis, sleep apnea, morbid obesity)? @ -Drug addiction, smoking Was patient admitted / discharged? @ -Discharged. Lab work demonstrates leukocytosis with a white blood cell count of 15.3, lactic acid elevated at 3.7. CRP 4.5. CT scan of the abdomen and pelvis demonstrates a gluteal cleft/retrococcyx abscess measuring 4 cm with surrounding inflammatory changes. It was difficult to evaluate for underlying fistulous communication. Patient had met sepsis criteria and on arrival and had softer blood pressures. As a result of this I did start the sepsis workup including blood cultures and IV antibiotics. However, patient refused admission despite my strongest recommendations. Blood pressure did however start to improve with the use of IV fluids. I did also advise that incision and drainage would be necessary. However, she refused this as well. Advised we can start her on antibiotics, however the likelihood of this going away without drainage would be very small. Patient expresses understanding and is willing to accept these risks. Augmentin and Bactrim prescribed to cover for both MRSA and anaerobic bacteria. Also advised warm compresses. Information for follow-up with general surgery provided. Patient discharged home in stable condition with strict return parameters. Case discussed with ED attending Dr. Miranda. Return precautions reviewed in depth, the patient is instructed to return to the emergency department with any new, worsening, or concerning symptoms. Patient verbalized understanding. Undiagnosed new problem with uncertain prognosis? @ -None Drug Therapy requiring intensive monitoring for toxicity (Heparin, Nitro, Insulin, Cardizem)? @ -None Were any procedures done? @ -None Diagnosis/symptom? @ -Gluteal cleft abscess Acute, or Chronic, or Acute on Chronic? @ -Acute Uncomplicated (without systemic symptoms) or Complicated (systemic symptoms)? @ -Uncomplicated Side effects of treatment? @ -None Exacerbation, Progression, or Severe Exacerbation] @ -Not applicable Poses a threat to life or bodily function? @ -This will depend on how she progresses - Lab Data Result diagrams: 02/23/25 14:17 02/23/25 14:17 Lab Results 02/23/25 02/23/25 02/23/25 Range/Units 14:17 14:17 14:17 WBC 15.30 H (4.50-10.00) 10*3/uL RBC 5.26 H (4.10-5.20) 10*6/uL Hgb 14.9 (12.0-15.0) g/dL Hct 44.6 (37.2-46.3) % MCV 84.8 (80.0-97.0) fL MCH 28.3 (27.0-32.0) pg MCHC 33.4 (32.0-37.0) g/dL Plt Count 445 H (140-440) 10*3/uL MPV 9.9 (9.5-12.2) fL Immature Gran % (Auto) 0.3 % Neutrophils % 71.6 % Lymphocytes % 18.8 % Monocytes % 8.2 % Eosinophils % 0.8 % Basophils % 0.3 % Immature Gran # 0.05 H (0.00-0.04) 10*3/uL Neutrophils # 10.93 H (1.80-7.70) 10*3/uL Lymphocytes # 2.88 (0.90-5.00) 10*3/uL Monocytes # 1.26 H (0.20-1.00) 10*3/uL Eosinophils # 0.13 (0.04-0.35) 10*3/uL Basophils # 0.05 (0.00-0.10) 10*3/uL Sodium 139 (137-145) mmol/L Potassium 4.4 (3.5-5.1) mmol/L Chloride 102 (98-107) mmol/L Carbon Dioxide 21 L (22-30) mmol/L Anion Gap 16 mmol/L BUN 8 (7-17) mg/dL Creatinine 0.72 (0.52-1.04) mg/dL Est GFR (CKD-EPI)AfAm >90 (>60 ml/min/1.73 sqM) Est GFR (CKD-EPI)NonAf >90 (>60 ml/min/1.73 sqM) Glucose 102 H (74-99) mg/dL Lactic Ac Sepsis Rflx Plasma Lactic Acid Tyler 3.7 H* (0.7-2.0) mmol/L Calcium 9.7 (8.4-10.2) mg/dL Total Bilirubin 0.6 (0.2-1.3) mg/dL AST 31 (14-36) U/L ALT 23 (4-34) U/L Alkaline Phosphatase 101 (38-126) U/L C-Reactive Protein 4.5 H (<1.0) mg/dL Total Protein 8.8 H (6.3-8.2) g/dL Albumin 4.8 (3.5-5.0) g/dL HCG, Qual Not Detected 02/23/25 Range/Units 14:40 WBC (4.50-10.00) 10*3/uL RBC (4.10-5.20) 10*6/uL Hgb (12.0-15.0) g/dL Hct (37.2-46.3) % MCV (80.0-97.0) fL MCH (27.0-32.0) pg MCHC (32.0-37.0) g/dL Plt Count (140-440) 10*3/uL MPV (9.5-12.2) fL Immature Gran % (Auto) % Neutrophils % % Lymphocytes % % Monocytes % % Eosinophils % % Basophils % % Immature Gran # (0.00-0.04) 10*3/uL Neutrophils # (1.80-7.70) 10*3/uL Lymphocytes # (0.90-5.00) 10*3/uL Monocytes # (0.20-1.00) 10*3/uL Eosinophils # (0.04-0.35) 10*3/uL Basophils # (0.00-0.10) 10*3/uL Sodium (137-145) mmol/L Potassium (3.5-5.1) mmol/L Chloride (98-107) mmol/L Carbon Dioxide (22-30) mmol/L Anion Gap mmol/L BUN (7-17) mg/dL Creatinine (0.52-1.04) mg/dL Est GFR (CKD-EPI)AfAm (>60 ml/min/1.73 sqM) Est GFR (CKD-EPI)NonAf (>60 ml/min/1.73 sqM) Glucose (74-99) mg/dL Lactic Ac Sepsis Rflx Y Plasma Lactic Acid Tyler (0.7-2.0) mmol/L Calcium (8.4-10.2) mg/dL Total Bilirubin (0.2-1.3) mg/dL AST (14-36) U/L ALT (4-34) U/L Alkaline Phosphatase (38-126) U/L C-Reactive Protein (<1.0) mg/dL Total Protein (6.3-8.2) g/dL Albumin (3.5-5.0) g/dL HCG, Qual - Radiology Data Radiology results: report reviewed, image reviewed Disposition Clinical Impression: Abscess, gluteal cleft, Nicotine dependence Disposition: HOME SELF-CARE Instructions (If sedation given, give patient instructions): Abscess (ED) Additional Instructions: Return to the emergency department with any new, worsening, or concerning symptoms. Take both antibiotics as prescribed for 10 days. Apply warm com presses. Alternate with ibuprofen and Tylenol as needed for pain relief. Contact either of the general surgery offices listed below. Let them know that you were seen in the emergency department for a rectal abscess and they will schedule you for a follow-up appointment. Follow up with your primary care provider in 1-2 days. Prescriptions: Amoxic-Pot Clav 875-125Mg [Augmentin 875-125] 1 tab PO Q12HR 10 Days #20 tab Sulfamethox-Tmp 800-160Mg [Bactrim DS 800-160 mg] 1 tab PO Q12HR 10 Days #20 tab Ibuprofen [Motrin] 800 mg PO Q8H PRN #30 tab PRN Reason: Pain Is patient prescribed a controlled substance at d/c from ED?: No Referrals: None,Stated [Primary Care Provider] - 1-2 days Nilson Bailey MD [STAFF PHYSICIAN] - 1-2 days Zhao Loera DO [Doctor of Osteopathic Medicine] - 1-2 days Time of Disposition: 16:09
[2025-02-23] MEDS: SODIUM CHLORIDE 0.9% 1,000 ML IV ONE (14:21)
[2025-02-23 14:22] LABS: Basophils # (A) 0.05 10*3/uL (0.00-0.10); Basophils % (A) 0.3 %; Eosinophils # (A) 0.13 10*3/uL (0.04-0.35); Eosinophils % (A) 0.8 %; HCT 44.6 % (37.2-46.3); HGB 14.9 g/dL (12.0-15.0); Lymphocytes # (A) 2.88 10*3/uL (0.90-5.00); Lymphocytes % (A) 18.8 %; MCH 28.3 pg (27.0-32.0); MCHC 33.4 g/dL (32.0-37.0); MCV 84.8 fL (80.0-97.0); Mean Platelet Volume 9.9 fL (9.5-12.2); Monocytes # (A) 1.26 10*3/uL (0.20-1.00); Monocytes % (A) 8.2 %; Neutrophils # (A) 10.93 10*3/uL (1.80-7.70); Neutrophils % (A) 71.6 %; Platelet Count 445 10*3/uL (140-440); RBC 5.26 10*6/uL (4.10-5.20); RDW 12.6 % (11.5-14.5)
[2025-02-23] MEDS: LIDOCAINE 1%-EPI 1:100,000 20 ML VIAL SQ STA (14:22)
[2025-02-23] MEDS: KETOROLAC 15 MG/ML 1 ML VIAL IVP STA (14:22)
[2025-02-23] MEDS ORDERED: VANCOMYCIN IV PER PHARMACY 1 EACH MISC MISCELLANE PRN (14:27)
[2025-02-23] MEDS ORDERED: LACTATED RINGERS 1,000 ML IV SCH ×2 (14:30)
[2025-02-23 14:35] LABS: HCG,Qualitative Serum Not Detected
[2025-02-23 14:40] LABS: ALT 23 U/L (4-34); AST 31 U/L (14-36); African American GFR (CKD) >90 (>60 ml/min/1.73 sqM); Albumin 4.8 g/dL (3.5-5.0); Alkaline Phosphatase 101 U/L (38-126); Anion Gap 16 mmol/L; Blood Urea Nitrogen 8 mg/dL (7-17); C Reactive Protein 4.5 mg/dL (<1.0); Calcium 9.7 mg/dL (8.4-10.2); Carbon Dioxide 21 mmol/L (22-30); Chloride 102 mmol/L (98-107); Glucose 102 mg/dL (74-99); Non-African American GFR(CKD) >90 (>60 ml/min/1.73 sqM); Potassium 4.4 mmol/L (3.5-5.1); Sodium 139 mmol/L (137-145); Total Bilirubin 0.6 mg/dL (0.2-1.3); Total Protein 8.8 g/dL (6.3-8.2)
[2025-02-23] MEDS ORDERED: AMPICILLIN-SULBACTAM 3 GM in SODIUM CHLORIDE 0.9% 100 ML IVPB SCH (15:00)
[2025-02-23] MEDS ORDERED: VANCOMYCIN 1,500 MG in SODIUM CHLORIDE 0.9% 500 ML 500 ML IVPB ONE (15:00)
[2025-02-23] MEDS ORDERED: SODIUM CHLORIDE 0.9% 500 ML 500 ML IV ONE (15:14)
[2025-02-23] MEDS ORDERED: SODIUM CHLORIDE 0.9% 1,000 ML IV ONE (15:14)
[2025-02-23] MEDS ORDERED: SODIUM CHLORIDE 0.9% 1,000 ML IV STA (15:14)
[2025-02-23] MEDS: cefTRIAXone 1,000 MG VIAL (IM USE) IM STA (15:31)
--- NOTE | 2025-02-23 15:57 | CT ---
INDICATION: Patient age:Female; 29 years old; Reason for study: Rectal abscess; [facility]. COMPARISON: CT abdomen/pelvis 03/10/2017. TECHNIQUE: Standard CT of the abdomen and pelvis following the administration of 100 cc of Isovue 3 00 IV contrast material. Coronal and sagittal reformats were performed. One or more CT dose reduction strategies were utilized during this examination. Please see chart for Total DLP administered . FINDINGS: LOWER CHEST: Posterior dependent subsegmental atelectasis is noted. ABDOMEN LIVER: Unremarkable. GALLBLADDER AND BILE DUCTS: The gallbladder is nondistended with no gross abnormality. No biliary fiordaliza diomedes dilatation. PANCREAS: Unremarkable. SPLEEN: Unremarkable. ADRENAL GLANDS: Unremarkable. KIDNEYS AND URETERS: No evidence of hydronephrosis or renal calculus. Subcentimeter right renal hypoa ttenuated focus too small to characterize. The ureters are unremarkable. PELVIS URINARY BLADDER: Incompletely distended and not fully visualized. REPRODUCTIVE: Grossly unremarkable. ABDOMEN & PELVIS STOMACH AND BOWEL: Stomach is grossly unremarkable. The small bowel is of normal caliber. No evidence of bowel obstruction. PERITONEUM: No evidence of pneumoperitoneum or free fluid. Deep within the pelvis there is an area [place] ggestive of a homogenous fat attenuated mass which seems to have some mass effect upon the urinary bl adder and pelvic structures. There are no conspicuous septations, calcifications or soft tissue abnor malities within this suspected mass. The suspected mass appears to measure 9.0 x 8.6 cm and is slight ly more conspicuous than the 2017 study in reference. VASCULATURE: No aneurysmal changes. MUSCULOSKELETAL: No acute osseous abnormalities. LYMPH NODES: Unremarkable. SOFT TISSUE/ABDOMINAL WALL: In the gluteal cleft there is a fluid collection seen measuring up to 3.0 x 4.0 cm with mild surrounding soft tissue fat stranding. Tiny fat filled umbilical hernia IMPRESSION: 1. No acute intra-abdominal/pelvic process. 2. Gluteal cleft/retro coccyx abscess is seen measuring up to 4.0 cm with mild surrounding inflammato ry changes. Difficult to evaluate for any underlying fistulous communication on this evaluation. 3. 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 There are no associated suspicious features seen on this study. This ca n be further characterized with an MRI pelvis with IV contrast. [facility], Workstation: [id number], 02/23/2025 3:55 PM
[2025-02-23 16:11] VITALS: BP 114/73; PULSE 92
[2025-02-24] MEDS ORDERED: VANCOMYCIN 1,500 MG in SODIUM CHLORIDE 0.9% 500 ML 500 ML IVPB SCH
== END 2025-02-23 16:27 | disposition home or self-care (01) ==
LOC: EC 13:40
DX: L02.31 Cutaneous abscess of buttock (principal); F19.20 Other psychoactive substance dependence, uncomplicated; F17.200 Nicotine dependence, unspecified, uncomplicated; Z91.040 Latex allergy status
CPT/HCPCS: 36415; 80053; 83605; 85025; 86140; 84703; 74177; 99284; 96374; 96361; 96372; J0696; J1885; Q9967